=== PATIENT | female | born 1950 | race Caucasian/White ===

== ENCOUNTER 2017-01-23 13:12 | Outpatient (CLI) | payer MEDICARE ==
--- NOTE | 2017-01-23 16:14 | CT ---
CT CHEST WITHOUT CONTRAST: 01/23/17 Multiple axial tomograms were obtained through the chest without IV enhancement. HISTORY: Followup pulmonary nodule. COMPARISON: Comparison made to chest CT of 12/14/14. FINDINGS: The tiny nodule noted in the right lung base on the prior study is again seen and is unchanged nina nuing to measure in the 3 mm range. No other pulmonary mass or nodule identified. Thoracic scoliotic curvature again noted. Incidentally noted on today's exam is a fat density mass involving the right side of the heart. This measures approximately 3 cm width x 4 cm craniocaudal. This mass is unchanged in appearance from th e prior study. It does appear to narrow the lumen of the superior vena cava as it enters the right a trium. It appears to displace the superior vena cava and the right atrium. There is no evidence of s uperior vena cava syndrome seen as there are no collateral vessels seen above this region. A benign lipoma of the pericardium or right atrium would be suspected. Recommend cardiology consultation and echocardiogram for further delineation and characterization. T his is a stable finding from 12/14/14. IMPRESSION: 1. There is a fat density mass involving the right heart displacing the superior vena cava and right atrium. 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 Recommend cardiol ogy consultation and echocardiogram to further characterize. 2. The tiny nodule in the right lung base is stable. 3. No other interval change. Code T POS: MARILEE
== END 2017-01-23 13:13 | disposition home or self-care (01) ==
LOC: CT 13:12
PROVIDERS: ATTEND Internal Medicine
DX: J44.9 Chronic obstructive pulmonary disease, unspecified (principal); R91.1 Solitary pulmonary nodule; R91.8 Other nonspecific abnormal finding of lung field
CPT/HCPCS: 71250

== ENCOUNTER 2018-03-17 07:09 | Inpatient (IN) | payer MEDICARE ==
[2018-03-17] MEDS ORDERED: Piperacillin/Tazobactam 3.375 GM VIAL ONE (07:29)
[2018-03-17 07:36] LABS: Actual Bicarbonate (HCO3a) 28.4 mEq/L (22-28); Analyzer IN Cardio ER; Base Excess (BEa) 2.8 mEq/L (-2.0 to +3.0); CO2 Tension 49.6 mmHg (35.0-45.0); Calcium, Ionized 1.06 mmol/L (1.12-1.30); Carboxyhemoglobin (COHb) 1.1 gm% (0.0-3.0); Hemoglobin (Hb) 6.9 g/dL (12.0-16.0); O2 Tension (PaO2) 107.9 mmHg (> 80.0); pH, Arterial 7.38 (7.35-7.45)
[2018-03-17 07:38] LABS: Puncture Site RRA
[2018-03-17] MEDS ORDERED: Albuterol Sulfate 2.5 mg/0.5 ml Neb ONE (07:41)
[2018-03-17] MEDS ORDERED: Albuterol Sulfate 2.5 mg/3 ml Neb ONE (07:41)
[2018-03-17] MEDS ORDERED: cefTRIAXone\\ROCEPHIN 1 GM VIAL ONE (07:45)
[2018-03-17] MEDS ORDERED: niCARdipine 20MG In NaCl 20 MG/200 ML BAG ONE (07:51)
[2018-03-17 08:12] LABS: #Lymphocytes 0.6 thou/uL (1.20-3.40); #Monocytes 0.5 thou/uL (0.11-0.59); #Neutrophils 18.1 thou/uL (1.40-6.50); %Basophils 0.1 % (0.0-1.0); %Eosinophils 0.2 % (0.0-10.0); %Lymphocytes 3.3 % (21.0-51.0); %Monocytes 2.7 % (0.0-10.0); %Neutrophils 93.7 % (42.0-75.0); Hemoglobin 6.3 g/dL (12.0-16.0); Mean Corpuscular HGB CONC 27.2 g/dL (32.0-36.0); Mean Corpuscular Hemoglobin 16.2 pg (27.0-31.0); Mean Corpuscular Volume 59.6 fL (78.0-98.0); Mean Platelet Volume 5.1 fL (7.4-10.4); Platelet Count 378 thou/uL (130-400); RBC Distribution Width 30.9 % (11.5-14.5); Reflex for Review?? YES; White Blood Cell (WBC) Count 19.3 thou/uL (4.8-10.8)
[2018-03-17 08:23] LABS: Anion Gap 15 mmol/L (10-20); BUN (Urea Nitrogen) 11 mg/dL (9.8-20.1); Calc. Creatinine Clearance 0 mL/min (70-130); Calcium 8.6 mg/dL (7.8-10.44); Carbon Dioxide 26 mmol/L (23-31); Chloride 91 mmol/L (98-107); Estimated GFR-MDRD Greater than 90; Glucose 129 mg/dL (80-115); Potassium 3.5 mmol/L (3.5-5.1); Sodium 128 mmol/L (136-145)
[2018-03-17 08:46] LABS: Hypochromia MARKED = >30 cells (100X) (0-5/hpf); MDiff Complete? YES; Microcytosis MARKED = >30 cells (100X) (0-5/hpf); PLT Morphology Comment Appears Adequate; Polychromasia SLIGHT = 2-3 cells (100X) (0-2/hpf); Schistocytes SLIGHT = 2-5 cells (100X) (0-1/hpf); Spherocytes SLIGHT = 1-5 cells (100X) (None Seen); Target Cells SLIGHT = 2-5 cells (100X) (0-1/hpf)
[2018-03-17] MEDS ORDERED: Ondansetron ODT 4 MG TAB SL PRN (10:01)
[2018-03-17] MEDS ORDERED: VANCOMYCIN IVPB PRN (10:01)
[2018-03-17] MEDS ORDERED: Cepastat Lozenges 1 LOZ PO PRN (10:01)
[2018-03-17] MEDS ORDERED: Ondansetron PF 4 MG/2 ML Vial IVP PRN (10:01)
[2018-03-17] MEDS ORDERED: Diabetic Tussin 200 MG/10 ML UDCUP PO PRN (10:01)
[2018-03-17] MEDS ORDERED: Acetaminophen 325 MG TAB PO PRN (10:01)
[2018-03-17] MEDS ORDERED: Sodium Chloride 0.65% Nasal 44 ML BOT EA NARE PRN (10:01)
[2018-03-17] MEDS ORDERED: Bisacodyl 10 MG SUPP PR PRN (10:01)
[2018-03-17] MEDS ORDERED: Loratadine 10 MG TAB PO PRN (10:01)
[2018-03-17] MEDS ORDERED: Senokot S 8.6-50 MG TAB PO PRN (10:01)
[2018-03-17] MEDS ORDERED: Bisacodyl 5 MG TAB PO PRN (10:01)
[2018-03-17] MEDS ORDERED: hydrALAZINE 20 MG/ML VIAL SLOW IVP PRN (10:01)
[2018-03-17] MEDS ORDERED: Artificial Tears 18 DROP/0.9 ML EA EYE PRN (10:01)
[2018-03-17] MEDS ORDERED: Eucerin (Mineral Oil/Petrolatum,White) 30 gm Jar TOP PRN (10:01)
[2018-03-17] MEDS ORDERED: Sodium Chloride 0.9% 1,000 ML IV SCH (10:15)
--- NOTE | 2018-03-17 10:44 | HP ---
PRIMARY CARE PHYSICIAN: Dr. Muro. REASON FOR ADMISSION: Transferred from [facility] for respiratory distress, chronic obstructive pulmonary disease exacerbation, [id number] respiratory failure, and severe anemia with GI bleed. HISTORY OF PRESENT ILLNESS: A 68-year-old female, who is currently on BiPAP. She is in respiratory distress and she is not able to provide good comfortable history at this point, but she only reports that for last three days, she acutely got short of breath and her home medication was not helping. She did not have any flu-like symptoms. She did not have any fever or chills. She was having occasional dry cough without any sputum. She did not have any hemoptysis. The patient reports that she is using oxygen at home and she has nebulizer machine. She tried everything possible at home to keep away from hospital for last 2 to 3 days, but her condition kept deteriorating and she was not able to breathe last night and that is why she called Paramedics and Paramedics took her to [facility]. The patient was hypertensive at [facility]. Routine blood test showed hemoglobin of 4.5. The patient was given 3 units of blood so far and the patient reported that she noticed intermittent black stool and sometimes, she also noticed julia blood with stool, but she does not have any abdominal pain. She denies any hematemesis. She denies any epigastric abdominal pain. She denies any fever or chills. When she came to our emergency room after [facility] treatment, the patient was on BiPAP. She was settled down from her respiratory distress. At [facility], the patient was given a trial of nitroglycerin drip, but that did not improve and that is why Cardene drip was changed in our hospital. The patient was given Solu-Medrol and DuoNeb therapy at [facility]. REVIEW OF SYSTEMS: CONSTITUTIONAL: Negative for weight loss or gain, ability to conduct usual activities. SKIN: Negative for rash, itching. EYES: Negative for double vision, pain. ENT/MOUTH: Negative for nose bleeding, neck stiffness, pain, tenderness. CARDIOVASCULAR: Negative for palpitations, dyspnea on exertion, orthopnea. RESPIRATORY: Negative for shortness of breath, wheezing, cough, hemoptysis, fever or night sweats. GASTROINTESTINAL: Negative for poor appetite, abdominal pain, heartburn, nausea, vomiting, constipation, or diarrhea. GENITOURINARY: Negative for urgency, frequency, dysuria, nocturia. MUSCULOSKELETAL: Negative for pain, swelling. NEUROLOGIC/PSYCHIATRIC: Negative for anxiety, depression. ALLERGY/IMMUNOLOGIC: Negative for skin rash, bleeding tendency. All review of systems tried to review with the patient, but not reliable because of her respiratory distress. I spoke with the patient's on #[phone] and got history from him as well. EMERGENCY ROOM COURSE: At [facility], the patient was given DuoNeb therapy, Solu-Medrol 125 mg IV fluid and nitroglycerin drip was started. In our emergency room, the patient was started on Cardene drip. The patient is given empirically vancomycin and Zosyn. She is given IV fluid. PAST MEDICAL HISTORY: Chronic respiratory failure with hypoxia, on home oxygen therapy; chronic obstructive pulmonary disease; scoliosis; chronic low back pain; hypertension; diastolic heart failure; history of hospitalization for chronic obstructive pulmonary disease exacerbation. PAST SURGICAL HISTORY: Reviewed and negative. PAST PSYCHIATRIC HISTORY: Anxiety and depression. SOCIAL HISTORY: The patient has remote history of smoking about [id number]. She quit smoking in 2013. She drinks occasionally beer at home. She is and lives at home with her . ALLERGIES: SHELLFISH, CODEINE, AND IODINE. THE PATIENT DOES NOT TOLERATE LEVOFLOXACIN THAT GIVES HALLUCINATION. FAMILY HISTORY: Positive for colon cancer, but no family history of coronary artery disease or stroke. CURRENT HOME MEDICATIONS: The patient does not have any medication with her at this point, but she is on following medication as per our previous hospital record, 1. Dulera two puff inhalation b.i.d. 2. DuoNeb q.6 hourly. 3. Zoloft 50 mg daily. 4. Potassium chloride 10 mEq p.o. daily. 5. Remeron 15 mg p.o. daily. 6. Cozaar 100 p.o. daily. 7. Mucinex 600 mg twice daily. 8. Ferrous sulfate 325 mg p.o. daily. 9. Tramadol 50 mg q.6 hourly p.r.n. PHYSICAL EXAMINATION: VITAL SIGNS: Vital signs currently; blood pressure 204/110, pulse 109, respiratory rate 27, temperature 97.9, and saturation 100% on 4 L and subsequently 100% on BiPAP. Weight 38.1 kg. GENERAL: The patient is currently in respiratory distress. Currently, she is on BiPAP. She is hypertensive, tachycardic. The patient is frail appearing and cachectic. HEENT: Head; normocephalic and atraumatic. Eyes; pupils are round and reactive to light. Extraocular muscle intact. ENT; oropharynx within normal limits. Dry appearing mucous membranes. Pale mucous membranes. NECK: Supple. No JVD. No thyromegaly. No carotid bruit. LUNGS: Bilateral end-expiratory wheezing. The patient is not able to talk in full sentence. No rales. The patient does have accessory muscles of respiration in use. Pursed lip breathing noted. CARDIAC: S1 and S2, regular, tachycardia. No murmur. No gallop. No rub. ABDOMEN: Soft. Bowel sounds are present. No epigastric tenderness. No Alas sign. No suprapubic tenderness. BACK: Examination unremarkable. No CVA tenderness. EXTREMITIES: Upper extremities; passive movement of all joints are normal. Lower extremities; no edema. Good distal pulsation. SKIN: No skin rash. Pale skin. HEMATOLOGIC: No lymphadenopathy. PSYCHIATRIC: Normal affect. NEUROLOGIC: Nonfocal examination. SIGNIFICANT LABORATORY DATA: EKG showing sinus tachycardia, left atrial enlargement. Chest x-ray done at [facility], reviewed, consistent with mild vascular congestion, interstitial edema, trace bilateral pleural effusion, degenerative spine disease. Occult blood positive at [facility]. Lactic acid 1.2. BNP 224. Troponin less than 0.01. CBC; WBC 19.9, hemoglobin initially 4.4, and platelets 461. ABG, pH of 7.26, CO2 of 70, O2 of 171, bicarb 31. D-dimer 0.74. BMP; sodium 128, potassium 3.7, chloride 90, carbon dioxide 27, BUN 12, creatinine 0.72, glucose 193, calcium 8.7. LFT; AST 34, ALT 13, alkaline phosphatase 99, total protein 6.1, and albumin 4.0. Current lab tests in our emergency room showing WBC 19.3, hemoglobin 6.3, lactic acid 2.7, and sodium 128. Cardiac enzyme negative. The patient has improvement in ABG compared to [facility]. ASSESSMENT AND PLAN: 1. Lmnap-os-zdyxbun respiratory failure with hypoxia and hypercapnia, likely due to underlying chronic obstructive pulmonary disease exacerbation, improving with BiPAP. The patient will be kept in ICU. Pulmonary group will be consulted. We will continue with BiPAP as tolerated. We will treat underlying chronic obstructive pulmonary disease exacerbation. 2. Jjoef-dv-hlwkhuf chronic obstructive pulmonary disease exacerbation, seems like patient has terminal chronic obstructive pulmonary disease. She has acute exacerbation. We will treat her with empiric antibiotic therapy with cefepime 1 g q.12 hourly, DuoNeb q.4 hourly, Solu-Medrol 40 mg IV q.6 hourly, Mucinex 600 mg twice daily. Pulmonary group will be consulted. We will monitor closely and will continue with BiPAP as tolerated. 3. Acute symptomatic severe anemia. The patient's hemoglobin was 4.5. She was given 3 units of blood so far. Currently, hemoglobin is 6.3. The patient will get another blood transfusion. Most likely GI bleed from the upper GI tract, given the patient has melenic stool, we will consult Gastroenterology. We will treat her with Protonix 40 mg IV b.i.d. We will monitor hemoglobin and hematocrit and consider transfusional support. 4. Systemic inflammatory response syndrome criteria. The patient has leukocytosis, tachycardia, likely related with stress response from chronic obstructive pulmonary disease exacerbation. Underlying infiltration or infection cannot be entirely excluded. We will check urinalysis and urine culture as well as blood culture will be sent and the patient is already kept on empiric antibiotic therapy with cefepime 1 g q.12 hourly, Florastor 250 mg p.o. b.i.d. We will also consider adding vancomycin as per pharmacy adjusted dose. 5. Hyponatremia, likely related with underlying chronic lung disease. We will monitor BMP while in the hospital. We will check urine osmolality, serum osmolality, random cortisol, and TSH. 6. Hypertensive emergency, likely due to stress response plus medications like steroid. The patient is kept on Cardene drip, which we will titrate in ICU. We will start losartan 50 mg p.o. daily. We will use in p.r.n. basis of other blood pressure medication and wean off Cardene drip as tolerated. 7. Lactic acidosis, likely due to sepsis/systemic inflammatory response syndrome criteria. We will repeat lactic acid level tomorrow. 8. Anxiety and depression. Continue Remeron 15 mg p.o. daily and Zoloft 50 mg p.o. daily. 9. Deep venous thrombosis prophylaxis. No Lovenox or any blood product because of severe anemia and GI bleed. 10. Gastrointestinal prophylaxis. The patient is already on Protonix therapy. CODE STATUS: The patient is a full code. She expressed her wish to be a full code and her is medical power of estate planning attorney. The patient's condition at the time of dictation is critical. Prognosis is guarded. Total time spent providing critical care to this patient, 35 minutes in the emergency room. Job ID: [id number]
[2018-03-17 11:17] LABS: Troponin I Less than 0.010 ng/mL (< 0.028)
[2018-03-17] MEDS: Cefepime 1 GM in Sodium Chloride 0.9% 100 ML IVPB SCH ×2 (11:20→23:34)
[2018-03-17 11:31] VITALS: BMI 17.2
--- NOTE | 2018-03-17 12:20 | CON ---
DATE OF CONSULTATION: 03/17/2018 This is 45 minutes of critical care time. CONSULTING PHYSICIAN: Hospitalist group. REASON FOR CONSULTATION: Acute respiratory failure and lower gastrointestinal bleeding. HISTORY OF THE PRESENT ILLNESS: Caterina Sousa is a 68-year-old female, who presented to an [facility] emergency room severely short of breath. She was found to have a hemoglobin of around 4. I believe she was given about 4 units of blood and transferred here for further evaluation. Here, she was found to be profoundly short of breath and she was started on BiPAP therapy. The patient tells me that Dr. Adan is her c python developer. She routinely wears 3 L of oxygen on a daily basis. She quit smoking about 6 years ago. She has self-dosed her prednisone at about 20 mg a day, although I think she is supposed to be taking about 5 mg a day. Additionally, she is taking DuoNebs, budesonide, and Perforomist. PAST MEDICAL HISTORY: 1. Severe COPD, requiring home oxygen and chronic steroids. 2. Chronic back pain. 3. Hypertension. PAST SURGICAL HISTORY: Denies. ALLERGIES: SHELLFISH, CODEINE, AND LEVAQUIN. MEDICATIONS: Prior to admission; 1. Prednisone 20 mg daily. 2. Losartan 100 mg daily. 3. Budesonide 0.5 mg nebulized twice daily. 4. Perforomist nebulized twice daily. 5. DuoNeb nebulized as needed. 6. Mirtazapine unknown dose daily. 7. Sertraline unknown dose daily. 8. Tramadol 1 tablet every 6 hours as needed for pain. SOCIAL HISTORY: She drinks about 2 beers a day. Quit smoking 6 years ago after 40 pack-year history of smoking. FAMILY MEDICAL HISTORY: Unremarkable. REVIEW OF SYSTEMS: A 12-point review of systems is otherwise negative. PHYSICAL EXAMINATION: VITAL SIGNS: Temperature 97.9, pulse 106, blood pressure 157/74, and O2 saturation 100%. GENERAL: The patient appears profoundly dyspneic at rest. She is disheveled. HEENT: Pupils react. Sclerae icteric. Oropharynx clear. NECK: No adenopathy. No JVD. LUNGS: Clear breath sounds, but tachypneic. CARDIOVASCULAR: S1 and S2. Slightly tachycardic. ABDOMEN: Soft and nontender to deep palpation. EXTREMITIES: No clubbing, cyanosis, or edema. NEUROLOGIC: Grossly intact. SKIN: Shows no obvious lesions. LABORATORY DATA: White blood cell count 19.3, hemoglobin 6.3, hematocrit 23.2, and platelet count 378. pH of 7.38, pCO2 of 49, and pO2 of 107, that was on 3 L nasal cannula. Sodium 128, potassium 3.5, chloride 91, CO2 of 26, BUN 11, creatinine 0.6, and glucose 129. ASSESSMENT: 1. Lower gastrointestinal bleeding with bright red blood per rectum. 2. Chronic obstructive pulmonary disease with exacerbation. 3. Anemia due to blood loss. 4. Severe hypertension. RECOMMENDATION: 1. The patient needs to have her H and H followed closely. This needs to be done more frequently than just on a daily basis. 2. Gastroenterology consultation for possible colonoscopy and upper endoscopy. 3. Treatment of chronic obstructive pulmonary disease with BiPAP as needed, antibiotics, nebulization treatments, and IV steroids. 4. Transfusion as necessary. Job ID: [id number]
[2018-03-17 12:37] LABS: Lactic Acid 4.9 mmol/L (0.5-2.2)
[2018-03-17 14:52] LABS: Troponin I Less than 0.010 ng/mL (< 0.028)
[2018-03-17 16:50] LABS: Hemoglobin 8.1 g/dL (12.0-16.0)
[2018-03-17] MEDS: Losartan 25 MG TAB PO SCH (17:19)
[2018-03-17] MEDS: traMADol HCl 50 MG TAB PO SCH ×2 (17:39→21:25)
[2018-03-17] MEDS: Budesonide 0.5 MG/2 ML NEB INH SCH (18:21)
[2018-03-17] MEDS: Arformoterol 15 MCG/2 ML NEB NEB SCH (18:21)
[2018-03-17] MEDS: Mirtazapine 15 MG TAB PO SCH (21:25)
[2018-03-17] MEDS: Pantoprazole 40 MG VIAL IVP SCH (21:25)
--- NOTE | 2018-03-17 22:18 | CON ---
DATE OF CONSULTATION: 03/17/2018 GASTROENTEROLOGY CONSULTATION CHIEF COMPLAINT: Shortness of breath. HISTORY OF PRESENT ILLNESS: Ms. Sousa is a 68-year-old woman, who presented to the emergency room in [place] yesterday with shortness of breath. She was found to have severe anemia with a hemoglobin of 4.4 and she was transfused 3 or 4 units of blood. She was transferred to [facility] and placed in the intensive care unit. She reported to the admitting physician that she had some black stools on and off occasionally. Currently, she denies any recent black stools. She states that she has had occasional red blood on the toilet paper, that she attributes to hemorrhoids. She denies more significant overt bleeding. She has no abdominal pain, no nausea or vomiting, no diarrhea or constipation. She has severe COPD and is on home oxygen. She has been taking prednisone at home. She does take aspirin, Aleve or Advil, maybe around once per week. PAST MEDICAL HISTORY: COPD on home oxygen, chronic back pain, scoliosis, hypertension, and diastolic heart failure. PAST SURGICAL HISTORY: She states that she had a colonoscopy, maybe 20 years ago. FAMILY HISTORY: Her father had colon cancer at age 70. HABITS: She quit smoking several years ago. No drugs or alcohol. ALLERGIES: SHELLFISH, CODEINE, IODINE, AND LEVOFLOXACIN. MEDICATIONS: 1. Dulera inhalers. 2. DuoNebs every 6 hours. 3. Zoloft. 4. Potassium chloride. 5. Remeron. 6. Cozaar. 7. Mucinex. 8. Iron. 9. Tramadol. She is taking prednisone, self-dosing as well. REVIEW OF SYSTEMS: Negative x10 systems reviewed except as stated in the history of present illness. LABORATORY DATA: Sodium 128, potassium 3.5, chloride 91, CO2 of 26, BUN 11, and creatinine 0.63. Her white blood cell count 19.3, hemoglobin 6.3 after 3 or 4 units of blood, platelets 378, and MCV 59.6. PHYSICAL EXAMINATION: VITAL SIGNS: Blood pressure 150/76, pulse 114, and temperature 98.5. GENERAL: She is in no acute distress. She is alert and oriented x3. HEENT: Eyes have no scleral icterus. Oropharynx is clear without lesions. No cervical or supraclavicular lymphadenopathy. LUNGS: Have crackles in the right base and decreased breath sounds overall. HEART: Regular rate and rhythm. No murmurs. ABDOMEN: Soft, nontender, and nondistended. Bowel sounds are present. She has formed stool sample, which is dark brown to greenish with no red blood mixed in. EXTREMITIES: No lower extremity edema. IMPRESSION: 1. Severe microcytic anemia, concerning for chronic gastrointestinal blood loss. She may have an acute blood loss component as well. 2. Family history of colon cancer in father. 3. Severe chronic obstructive pulmonary disease, on home oxygen. RECOMMENDATIONS: 1. Check iron studies. 2. Upper and lower endoscopy have been offered. The patient did not wish to proceed with these procedures at this time. She would like to talk to her and Dr. Adan further as well. 3. We will give proton-pump inhibitor and monitor her hemoglobin and transfuse as necessary. If she ultimately decides to follow through with endoscopy, then we can perform a bowel prep and schedule those procedures. She is certainly at increased risk given her advanced chronic obstructive pulmonary disease. Job ID: [id number]
[2018-03-18] MEDS ORDERED: niCARdipine HCl 25 MG in Sodium Chloride 0.9% 250 ML 240 ML IVPB SCH (04:15)
[2018-03-18 04:39] LABS: Lactic Acid 0.8 mmol/L (0.5-2.2)
[2018-03-18 04:40] LABS: #Lymphocytes 0.5 thou/uL (1.20-3.40); #Monocytes 0.4 thou/uL (0.11-0.59); #Neutrophils 12.1 thou/uL (1.40-6.50); %Eosinophils 0.2 % (0.0-10.0); %Lymphocytes 3.9 % (21.0-51.0); %Monocytes 3.2 % (0.0-10.0); %Neutrophils 92.7 % (42.0-75.0); Hemoglobin 8.1 g/dL (12.0-16.0); Mean Corpuscular HGB CONC 29.8 g/dL (32.0-36.0); Mean Corpuscular Hemoglobin 19.1 pg (27.0-31.0); Mean Corpuscular Volume 64.2 fL (78.0-98.0); Mean Platelet Volume 5.4 fL (7.4-10.4); Platelet Count 329 thou/uL (130-400); RBC Distribution Width 31.1 % (11.5-14.5); Red Blood Cell (RBC) Count 4.22 mill/uL (4.20-5.40)
[2018-03-18 04:45] LABS: ALT (SGPT) 12 U/L (8-55); AST (SGOT) 24 U/L (5-34); Albumin 3.7 g/dL (3.4-4.8); Alkaline Phosphatase 85 U/L (40-150); Anion Gap 12 mmol/L (10-20); BUN (Urea Nitrogen) 6 mg/dL (9.8-20.1); Bilirubin, Total 0.5 mg/dL (0.2-1.2); Calc. Creatinine Clearance 59 mL/min (70-130); Calcium 8.5 mg/dL (7.8-10.44); Carbon Dioxide 28 mmol/L (23-31); Chloride 100 mmol/L (98-107); Estimated GFR-MDRD Greater than 90; Globulin 2.3 g/dL (2.4-3.5); Glucose 113 mg/dL (80-115); Iron 10 ug/dL (50-170); Iron Binding Capacity, Total 458 mcg/dL (265-497); Potassium 3.1 mmol/L (3.5-5.1); Sodium 137 mmol/L (136-145)
[2018-03-18] MEDS: traMADol HCl 50 MG TAB PO SCH ×3 (05:46→20:46)
[2018-03-18] MEDS: Budesonide 0.5 MG/2 ML NEB INH SCH ×2 (06:55→20:09)
[2018-03-18] MEDS: Arformoterol 15 MCG/2 ML NEB NEB SCH ×2 (06:55→20:12)
[2018-03-18] MEDS: Saccharomyces boulardii 250 MG CAP PO SCH (07:43)
[2018-03-18] MEDS: Pantoprazole 40 MG VIAL IVP SCH ×2 (07:44→20:46)
[2018-03-18] MEDS: Losartan 25 MG TAB PO SCH (07:44)
[2018-03-18] MEDS ORDERED: Vancomycin HCl 1 GM in Premix Bag 1 BAG IVPB SCH (08:00)
--- NOTE | 2018-03-18 10:02 | PDOC.PN ---
- Subjective Encounter Start Date: 03/18/18 Encounter Start Time: 09:20 -: old records requested/rev pt is doing much better, she is off cardene drip, she is off bipap, she decided not to go for EGD and colonoscopy Patient seen and examined. No new complaints. No overnight events - Objective Resuscitation Status - Order Detail: 03/17/18 09:25 Resuscitation Status Routine Resuscitation Status: FULL: Full Resuscitation MAR Reviewed: Yes Vital Signs & Weight: Vital Signs (12 hours) Temp Pulse Resp Pulse Ox 03/18/18 08:00 100 03/18/18 06:55 107 H 24 H 100 03/18/18 04:00 98.1 F 03/18/18 02:17 111 H 17 100 03/18/18 00:00 98.4 F 03/17/18 22:11 105 H 25 H 100 Weight Weight 91 lb 7.869 oz Most Recent Monitor Data Heart Rate from ECG 96 NIBP 166/83 NIBP BP-Mean 110 Respiration from ECG 25 SpO2 100 I&O: 03/17/18 03/18/18 03/19/18 06:59 06:59 06:59 Intake Total 3013 Output Total 4530 Balance -1517 Result Diagrams: 03/18/18 04:09 03/18/18 04:09 EKG Reviewed by me: Yes (nsr) Phys Exam - Physical Examination Constitutional: NAD HEENT: PERRLA, moist MMs, sclera anicteric Neck: no JVD, supple Respiratory: no wheezing, no rales, no rhonchi Cardiovascular: RRR, no significant murmur, no rub Gastrointestinal: soft, non-tender, no distention, positive bowel sounds Musculoskeletal: no edema, pulses present Neurological: non-focal, normal sensation Lymphatic: no nodes Psychiatric: normal affect, A&O x 3 Skin: no rash, normal turgor Dx/Plan (1) Acute on chronic respiratory failure with hypoxemia Code(s): J96.21 - ACUTE AND CHRONIC RESPIRATORY FAILURE WITH HYPOXIA Status: Acute (2) COPD exacerbation Code(s): J44.1 - CHRONIC OBSTRUCTIVE PULMONARY DISEASE W (ACUTE) EXACERBATION Status: Acute (3) Hypertensive urgency Code(s): I16.0 - HYPERTENSIVE URGENCY Status: Acute (4) GI bleed Code(s): K92.2 - GASTROINTESTINAL HEMORRHAGE, UNSPECIFIED Status: Acute (5) Hypokalemia Code(s): E87.6 - HYPOKALEMIA Status: Acute (6) Lactic acidosis Code(s): E87.2 - ACIDOSIS Status: Acute (7) Symptomatic anemia Code(s): D64.9 - ANEMIA, UNSPECIFIED Status: Acute (8) Anxiety and depression Code(s): F41.9 - ANXIETY DISORDER, UNSPECIFIED; F32.9 - MAJOR DEPRESSIVE DISORDER, SINGLE EPISODE, UNSPECIFIED Status: Chronic (9) Diastolic dysfunction Code(s): I51.9 - HEART DISEASE, UNSPECIFIED Status: Chronic (10) HTN (hypertension), benign Code(s): I10 - ESSENTIAL (PRIMARY) HYPERTENSION Status: Chronic (11) Protein-calorie malnutrition, moderate Code(s): E44.0 - MODERATE PROTEIN-CALORIE MALNUTRITION Status: Chronic (12) Scoliosis Status: Chronic Qualifiers: - Plan cont current plan of care, continue antibiotics, respiratory therapy * add amlodipine 10 mg po daily * DC IVF * overall doing better * medication reviewed as below * symptomatic treatment * start diet as pt decided not to go for any procedure at this point * will continue to adjust her medication * pulmonary and GI recommendation appreciated. Review of Systems - Review of Systems ENT: negative: Ear Pain, Ear Discharge, Nose Pain, Nose Discharge, Nose Congestion, Mouth Pain, Mouth Swelling, Throat Pain, Throat Swelling, Other Respiratory: negative: Cough, Dry, Shortness of Breath, Hemoptysis, SOB with Excertion, Pleuritic Pain, Sputum, Wheezing Cardiovascular: negative: chest pain, palpitations, orthopnea, paroxysmal nocturnal dyspnea, edema, light headedness, other Gastrointestinal: negative: Nausea, Vomiting, Abdominal Pain, Diarrhea, Constipation, Melena, Hematochezia, Other Genitourinary: negative: Dysuria, Frequency, Incontinence, Hematuria, Retention , Other Musculoskeletal: negative: Neck Pain, Shoulder Pain, Arm Pain, Back Pain, Hand Pain, Leg Pain, Foot Pain, Other Skin: negative: Rash, Lesions, Rene, Bruising, Other - Medications/Allergies Allergies/Adverse Reactions: Allergies Allergy/AdvReac Type Severity Reaction Status Date / Time codeine Allergy Unknown Verified 12/25/14 17:37 shellfish derived Allergy Unknown Verified 12/25/14 17:37 iodine Allergy Verified 12/27/14 10:25 Medications: Current Medications Acetaminophen (Tylenol) 650 mg PO Q4H PRN PRN Reason: Headache/Fever/Mild Pain (1-3) Albuterol/Ipratropium (Duoneb) 3 ml NEB [id number] [facility] Last Admin: 03/18/18 06:55 Dose: 3 ml Arformoterol Tartrate (Brovana) 15 mcg NEB BID-RT [facility] Last Admin: 03/18/18 06:55 Dose: 15 mcg Artificial Tears (Tears Naturale) 2 drop EA EYE PRN PRN PRN Reason: Dry Eyes Bisacodyl (Dulcolax) 10 mg PO DAILYPRN PRN PRN Reason: Constipation Bisacodyl (Dulcolax) 10 mg AR DAILYPRN PRN PRN Reason: Constipation Budesonide (Pulmicort Neb Solution) 0.5 mg INH BID-RT [facility] Last Admin: 03/18/18 06:55 Dose: 0.5 mg Guaifenesin (Robitussin Sf) 200 mg PO Q4H PRN PRN Reason: Cough Hydralazine HCl (Apresoline) 10 mg SLOW IVP Q4H PRN PRN Reason: SBP > 180 and HR < 70 Cefepime HCl 1 gm/ Sodium (Chloride) 100 mls @ 200 mls/hr IVPB 1100,2300 [facility] Last Admin: 03/17/18 23:34 Dose: 100 mls Sodium Chloride (Normal Saline 0.9%) 1,000 mls @ 70 mls/hr IV .[id number] [facility] Last Admin: 03/17/18 19:37 Dose: 1,000 mls Vancomycin HCl 1 gm/ Device 200 mls @ 200 mls/hr IVPB 0800 [facility] Last Admin: 03/18/18 07:43 Dose: 200 mls Nicardipine HCl 25 mg/ Sodium (Chloride) 250 mls @ 0 mls/hr IVPB INF [facility]; Protocol Loratadine (Claritin) 10 mg PO DAILYPRN PRN PRN Reason: Sinus Symptoms Losartan Potassium (Cozaar) 100 mg PO DAILY [facility] Last Admin: 03/18/18 07:44 Dose: 100 mg Methylprednisolone Sodium Succinate (Solu-Medrol) 40 mg IVP Q6HR [facility] Last Admin: 03/18/18 05:46 Dose: 40 mg Mineral Oil/White Petrolatum (Eucerin Cream) 0 gm TOP BIDPRN PRN PRN Reason: Dry Skin Mirtazapine (Remeron) 15 mg PO HS [facility] Last Admin: 03/17/18 21:25 Dose: 15 mg Miscellaneous Medication (Pharmacy To Dose) 1 each IVPB DAILYPRN PRN PRN Reason: LABS Ondansetron HCl (Zofran Odt) 4 mg SL Q6H PRN PRN Reason: Nausea/Vomiting Ondansetron HCl (Zofran) 4 mg IVP Q6H PRN PRN Reason: Nausea/Vomiting Pantoprazole Sodium (Protonix) 40 mg IVP Q12HR [facility] Last Admin: 03/18/18 07:44 Dose: 40 mg Saccharomyces Boulardii (Florastor) 250 mg PO DAILY [facility] Last Admin: 03/18/18 07:43 Dose: 250 mg Senna/Docusate Sodium (Senokot S) 2 tab PO BID PRN PRN Reason: Constipation Sertraline HCl (Zoloft) 50 mg PO DAILY [facility] Last Admin: 03/18/18 07:44 Dose: 50 mg Sodium Chloride ([place] Nasal [place] 0.65%) 0 ml EA NARE QIDPRN PRN PRN Reason: Nasal Congestion Throat Lozenges (Cepastat Lozenges) 1 cruz PO Q2H PRN PRN Reason: Sore Throat Tramadol HCl (Ultram) 50 mg PO Q8HR [facility] Last Admin: 03/18/18 05:46 Dose: 50 mg
[2018-03-18] MEDS ORDERED: Amlodipine 10 MG TAB PO SCH (10:15)
[2018-03-18] MEDS ORDERED: Furosemide 20 MG/2 ML VIAL SLOW IVP SCH (10:45)
[2018-03-18] MEDS: Potassium Chloride 20 MEQ TAB PO SCH ×3 (10:50→18:05)
--- NOTE | 2018-03-18 11:30 | PRG ---
DATE OF SERVICE: 03/18/2018 SERVICE: Pulmonary Medicine. INTERVAL HISTORY: The patient is doing fine from respiratory standpoint. Breathing comfortably. Denies any current chest pain, fevers, chills, nausea, vomiting, or diarrhea. She responded appropriately to her hemoglobin overnight. There has been no interval change to her condition. She is actually declining evaluation with EGD and colonoscopy at this point. She would like to see whether or not she has recurrence of her anemia process. Multiple laboratories are currently pending. She has been on and off the Cardene drip overnight. PHYSICAL EXAMINATION: VITAL SIGNS: Afebrile. Pulse 107, blood pressure 166/83, respirations 24, saturation 100% on 3 L nasal cannula. GENERAL: The patient is awake, alert, in no apparent distress. LUNGS: Excellent air entry. Minimal dependent crackles are present. HEART: Normal rate, regular. ABDOMEN: Soft, nontender, and nondistended. Bowel sounds are positive. MUSCULOSKELETAL: No cyanosis or clubbing. There is no pitting in the bilateral lower extremities. NEUROLOGIC: Grossly nonfocal. LABORATORY DATA: WBC 13.0, hemoglobin 8.1, platelets 329,000. Hemoglobin remained stable over the last 24 hours. Basic metabolic profile and liver function studies are unremarkable. Cardiac enzymes are negative x3. Lactate has resolved from 4.9 down to 0.8. All other blood studies occurred after she got multiple units of blood. ASSESSMENT: 1. Acute blood loss anemia. 2. Lower gastrointestinal bleed. 3. Chronic obstructive pulmonary disease without exacerbation. 4. Hypertension. DISCUSSION AND PLAN: We will replace the potassium. We will rapidly deescalate her antibiotics and nebulized medication. We will reintroduce her blood pressure medications. She does have some crackles on chest x-ray. As such, we will stop her IV fluids and provide her with 1 single dose of Lasix. If we can get her off the Cardene drip, she will be stable for transition to the medical unit this afternoon. I have suggested to her that she probably should undergo diagnostic evaluation while she is in-house, so that we understand the source of her blood loss. That being said, she has declined this at this moment. Job ID: [id number]
--- NOTE | 2018-03-18 12:28 | EKG ---
Test Reason : Blood Pressure : / mmHG Vent. Rate : 109 BPM Atrial Rate : 109 BPM P-R Int : 166 ms QRS Dur : 078 ms QT Int : 370 ms P-R-T Axes : 071 022 063 degrees QTc Int : 498 ms Sinus tachycardia Possible Left atrial enlargement Borderline ECG Confirmed by GIOVANNI LUCIA MD ([id number]), managing editor KEVIN SIU ([id number] on 03/18/2018 12:28:37 PM Referred By: Confirmed By:GIOVANNI LUCIA MD
[2018-03-18] MEDS ORDERED: Labetalol HCl 100 MG/20 ML VIAL IVPB PRN (15:19)
[2018-03-18] MEDS: Mirtazapine 15 MG TAB PO SCH (20:46)
[2018-03-19] MEDS: traMADol HCl 50 MG TAB PO SCH ×3 (06:22→20:30)
[2018-03-19] MEDS: Budesonide 0.5 MG/2 ML NEB INH SCH ×2 (06:31→19:48)
[2018-03-19] MEDS: Arformoterol 15 MCG/2 ML NEB NEB SCH ×2 (06:31→19:50)
[2018-03-19] MEDS: Pantoprazole 40 MG VIAL IVP SCH ×2 (09:11→20:29)
[2018-03-19] MEDS: Saccharomyces boulardii 250 MG CAP PO SCH (09:11)
[2018-03-19] MEDS: Amlodipine 10 MG TAB PO SCH (09:12)
[2018-03-19 09:15] LABS: Anion Gap 12 mmol/L (10-20); BUN (Urea Nitrogen) 7 mg/dL (9.8-20.1); Calc. Creatinine Clearance 57 mL/min (70-130); Calcium 8.8 mg/dL (7.8-10.44); Carbon Dioxide 28 mmol/L (23-31); Chloride 101 mmol/L (98-107); Estimated GFR-MDRD Greater than 90; Glucose 78 mg/dL (80-115); Magnesium 1.7 mg/dL (1.6-2.6); Potassium 3.6 mmol/L (3.5-5.1); Sodium 137 mmol/L (136-145)
[2018-03-19] MEDS: Losartan 25 MG TAB PO SCH (09:16)
[2018-03-19] MEDS ORDERED: predniSONE 20 MG TAB PO SCH (10:30)
--- NOTE | 2018-03-19 11:45 | PDOC.PN ---
- Subjective Encounter Start Date: 03/19/18 Encounter Start Time: 09:30 Patient seen and examined. No new complaints. No overnight events - Objective Resuscitation Status - Order Detail: 03/17/18 09:25 Resuscitation Status Routine Resuscitation Status: FULL: Full Resuscitation MAR Reviewed: Yes Vital Signs & Weight: Vital Signs (12 hours) Temp Pulse Resp BP BP Pulse Ox 03/19/18 09:12 100 159/81 H 03/19/18 08:00 100 03/19/18 07:45 97.7 F 100 20 159/81 H 99 03/19/18 06:32 99 03/19/18 06:30 108 H 20 98 03/19/18 05:00 98.2 F 108 H 20 170/84 H 99 03/19/18 01:31 118 H 20 96 Weight Admit Weight 91 lb Weight 91 lb 7.869 oz Most Recent Monitor Data Heart Rate from ECG 115 NIBP 160/98 NIBP BP-Mean 118 Respiration from ECG 30 SpO2 95 I&O: 03/18/18 03/19/18 03/20/18 06:59 06:59 06:59 Intake Total 3013 589 Output Total 4530 1450 Balance -7037 -501 Result Diagrams: 03/18/18 04:09 03/19/18 08:34 Phys Exam - Physical Examination Constitutional: NAD HEENT: PERRLA, moist MMs, sclera anicteric Neck: no JVD, supple Respiratory: no wheezing, no rales, no rhonchi Cardiovascular: RRR, no significant murmur, no rub Gastrointestinal: soft, non-tender, no distention, positive bowel sounds Musculoskeletal: no edema, pulses present Neurological: non-focal, normal sensation Lymphatic: no nodes Psychiatric: normal affect, A&O x 3 Skin: no rash, normal turgor Dx/Plan (1) Acute on chronic respiratory failure with hypoxemia Code(s): J96.21 - ACUTE AND CHRONIC RESPIRATORY FAILURE WITH HYPOXIA Status: Acute (2) COPD exacerbation Code(s): J44.1 - CHRONIC OBSTRUCTIVE PULMONARY DISEASE W (ACUTE) EXACERBATION Status: Acute (3) Hypertensive urgency Code(s): I16.0 - HYPERTENSIVE URGENCY Status: Acute (4) GI bleed Code(s): K92.2 - GASTROINTESTINAL HEMORRHAGE, UNSPECIFIED Status: Acute (5) Hypokalemia Code(s): E87.6 - HYPOKALEMIA Status: Acute (6) Lactic acidosis Code(s): E87.2 - ACIDOSIS Status: Acute (7) Symptomatic anemia Code(s): D64.9 - ANEMIA, UNSPECIFIED Status: Acute (8) Anxiety and depression Code(s): F41.9 - ANXIETY DISORDER, UNSPECIFIED; F32.9 - MAJOR DEPRESSIVE DISORDER, SINGLE EPISODE, UNSPECIFIED Status: Chronic (9) Diastolic dysfunction Code(s): I51.9 - HEART DISEASE, UNSPECIFIED Status: Chronic (10) HTN (hypertension), benign Code(s): I10 - ESSENTIAL (PRIMARY) HYPERTENSION Status: Chronic (11) Protein-calorie malnutrition, moderate Code(s): E44.0 - MODERATE PROTEIN-CALORIE MALNUTRITION Status: Chronic (12) Scoliosis Status: Chronic Qualifiers: - Plan cont current plan of care, continue antibiotics, respiratory therapy * continue oral prednisone * continue respiratory therapy * continue iv protonix * repeat labs tomorrow * expecting discharge tomorrow * medication reviewed as below * symptomatic treatment * ambulate today. Review of Systems - Review of Systems ENT: negative: Ear Pain, Ear Discharge, Nose Pain, Nose Discharge, Nose Congestion, Mouth Pain, Mouth Swelling, Throat Pain, Throat Swelling, Other Respiratory: negative: Cough, Dry, Shortness of Breath, Hemoptysis, SOB with Excertion, Pleuritic Pain, Sputum, Wheezing Cardiovascular: negative: chest pain, palpitations, orthopnea, paroxysmal nocturnal dyspnea, edema, light headedness, other Gastrointestinal: negative: Nausea, Vomiting, Abdominal Pain, Diarrhea, Constipation, Melena, Hematochezia, Other Genitourinary: negative: Dysuria, Frequency, Incontinence, Hematuria, Retention , Other Musculoskeletal: negative: Neck Pain, Shoulder Pain, Arm Pain, Back Pain, Hand Pain, Leg Pain, Foot Pain, Other - Medications/Allergies Allergies/Adverse Reactions: Allergies Allergy/AdvReac Type Severity Reaction Status Date / Time codeine Allergy Unknown Verified 12/25/14 17:37 shellfish derived Allergy Unknown Verified 12/25/14 17:37 iodine Allergy Verified 12/27/14 10:25 Medications: Current Medications Acetaminophen (Tylenol) 650 mg PO Q4H PRN PRN Reason: Headache/Fever/Mild Pain (1-3) Albuterol/Ipratropium (Duoneb) 3 ml NEB [id number] [facility] Last Admin: 03/19/18 06:30 Dose: 3 ml Amlodipine Besylate (Norvasc) 10 mg PO DAILY [facility] Last Admin: 03/19/18 09:12 Dose: 10 mg Arformoterol Tartrate (Brovana) 15 mcg NEB BID-RT [facility] Last Admin: 03/19/18 06:31 Dose: 15 mcg Artificial Tears (Tears Naturale) 2 drop EA EYE PRN PRN PRN Reason: Dry Eyes Bisacodyl (Dulcolax) 10 mg PO DAILYPRN PRN PRN Reason: Constipation Bisacodyl (Dulcolax) 10 mg CO DAILYPRN PRN PRN Reason: Constipation Budesonide (Pulmicort Neb Solution) 0.5 mg INH BID-RT [facility] Last Admin: 03/19/18 06:31 Dose: 0.5 mg Guaifenesin (Robitussin Sf) 200 mg PO Q4H PRN PRN Reason: Cough Hydralazine HCl (Apresoline) 10 mg SLOW IVP Q4H PRN PRN Reason: SBP > 180 and HR < 70 Last Admin: 03/18/18 12:08 Dose: 10 mg Labetalol HCl (Normodyne) 20 mg IVPB Q15MIN PRN PRN Reason: SBP >=160 Loratadine (Claritin) 10 mg PO DAILYPRN PRN PRN Reason: Sinus Symptoms Losartan Potassium (Cozaar) 100 mg PO DAILY [facility] Last Admin: 03/19/18 09:16 Dose: 100 mg Mineral Oil/White Petrolatum (Eucerin Cream) 0 gm TOP BIDPRN PRN PRN Reason: Dry Skin Mirtazapine (Remeron) 15 mg PO HS [facility] Last Admin: 03/18/18 20:46 Dose: 15 mg Ondansetron HCl (Zofran Odt) 4 mg SL Q6H PRN PRN Reason: Nausea/Vomiting Ondansetron HCl (Zofran) 4 mg IVP Q6H PRN PRN Reason: Nausea/Vomiting Pantoprazole Sodium (Protonix) 40 mg IVP Q12HR [facility] Last Admin: 03/19/18 09:11 Dose: 40 mg Prednisone (Prednisone) 10 mg PO Q2D [facility] Last Admin: 03/19/18 11:41 Dose: 10 mg Saccharomyces Boulardii (Florastor) 250 mg PO DAILY [facility] Last Admin: 03/19/18 09:11 Dose: 250 mg Senna/Docusate Sodium (Senokot S) 2 tab PO BID PRN PRN Reason: Constipation Sertraline HCl (Zoloft) 50 mg PO DAILY [facility] Last Admin: 03/19/18 09:11 Dose: 50 mg Sodium Chloride ([place] Nasal [place] 0.65%) 0 ml EA NARE QIDPRN PRN PRN Reason: Nasal Congestion Throat Lozenges (Cepastat Lozenges) 1 cruz PO Q2H PRN PRN Reason: Sore Throat Tramadol HCl (Ultram) 50 mg PO Q8HR [facility] Last Admin: 03/19/18 06:22 Dose: 50 mg
[2018-03-19] MEDS ORDERED: Magnesium 2 GM/50 ML 2 GM in Premix Bag 1 BAG IVPB SCH (16:00)
[2018-03-19] MEDS ORDERED: Potassium Chloride 20 MEQ TAB PO SCH (16:00)
--- NOTE | 2018-03-19 16:31 | PRG ---
DATE OF SERVICE: 03/19/2018 SERVICE: Pulmonary Medicine. INTERVAL HISTORY: The patient declines any evaluation for her GI bleed. Overnight, her hemoglobin had been roughly stable. She denies any current blood loss, fevers, chills, nausea, vomiting, or abdominal discomfort. Otherwise, she remains in her usual state of health. From a respiratory standpoint, things are stable and she has never had any abrupt or any acute issues there. PHYSICAL EXAMINATION: VITAL SIGNS: Afebrile, pulse 112, respirations 20, saturation 100% on 2.5 L nasal cannula, and blood pressure 163/81. GENERAL: The patient is awake, alert, in no apparent distress. LUNGS: Excellent air entry. There is no prolonged expiratory phase or wheezing present. HEART: Normal rate, regular. ABDOMEN: Soft, nontender, and nondistended. Bowel sounds are positive. MUSCULOSKELETAL: No cyanosis or clubbing. No pitting in the bilateral lower extremities. NEUROLOGIC: Grossly nonfocal. LABORATORY DATA: Hemoglobin is stable at 8.1. Basic metabolic profile is otherwise unremarkable. Magnesium is 1.5. ASSESSMENT: 1. Acute blood loss anemia, stable. 2. Lower gastrointestinal bleed, suspected. 3. Chronic obstructive pulmonary disease without current exacerbation. 4. Chronic hypoxic respiratory failure, at baseline. 5. Hypertension. DISCUSSION AND PLAN: The laboratory holiday will be given tomorrow, except for hemoglobin and hematocrit. From purely respiratory standpoint, the patient is stable for transition out of the hospital. As previously noted, she has declined further evaluation at this time for her underlying process. She will resume her home inhalers on discharge from the hospital. Pulmonary Critical Care will continue to follow if she remains in-house, but from purely lung perspective, she is optimized for transition home. Job ID: [id number]
[2018-03-19] MEDS: Mirtazapine 15 MG TAB PO SCH (20:29)
[2018-03-20] MEDS: traMADol HCl 50 MG TAB PO SCH (06:09)
[2018-03-20] MEDS: Budesonide 0.5 MG/2 ML NEB INH SCH (06:52)
[2018-03-20] MEDS: Arformoterol 15 MCG/2 ML NEB NEB SCH (06:52)
[2018-03-20 07:17] VITALS: BP 158/82; TEMP 97.4
[2018-03-20 07:40] LABS: Hemoglobin 8.4 g/dL (12.0-16.0)
[2018-03-20] MEDS: Saccharomyces boulardii 250 MG CAP PO SCH (08:40)
[2018-03-20] MEDS: Losartan 25 MG TAB PO SCH (08:40)
[2018-03-20] MEDS: Pantoprazole 40 MG VIAL IVP SCH (08:41)
[2018-03-20] MEDS: Amlodipine 10 MG TAB PO SCH (08:41)
--- NOTE | 2018-03-20 12:00 | DIS ---
DATE OF ADMISSION: 03/17/2018 DATE OF DISCHARGE: 03/20/2018 PRIMARY CARE PHYSICIAN: Dr. Cornelius Mcgraw. DISCHARGE DISPOSITION: Home. PRIMARY DISCHARGE DIAGNOSES: 1. Acute on chronic respiratory failure with hypoxia. 2. Chronic obstructive pulmonary disease exacerbation. 3. Gastrointestinal bleed. 4. Hypertensive urgency. 5. Lactic acidosis. 6. Hypokalemia. 7. Symptomatic anemia. SECONDARY DISCHARGE DIAGNOSES: 1. Chronic respiratory failure with hypoxia. 2. Protein-calorie malnutrition. 3. Scoliosis. 4. Hypertension. 5. Diastolic dysfunction. 6. Severe chronic obstructive pulmonary disease. PRIMARY PROCEDURE/OPERATION: None. RADIOLOGICAL INVESTIGATION: Chest x-ray was unremarkable. SIGNIFICANT LABORATORY DATA: WBC 13.0, hemoglobin 8.4, and platelets 329. Sodium 137, potassium 3.6, BUN 7, creatinine 0.63, calcium 8.8. LFT normal. Blood culture negative. DISCHARGE MEDICATION: 1. Tramadol 50 mg q.6 hourly p.r.n. 2. ProAir HFA two puffs q.6h hourly p.r.n. 3. Mucinex 600 mg daily. 4. Cozaar 50 mg daily. 5. Remeron 15 mg at bedtime. 6. Zoloft 50 mg p.o. daily. 7. DuoNeb q.4 hourly. 8. Amlodipine 10 mg daily. 9. Ferrous sulfate 325 mg p.o. daily. 10. Dulera two puff inhalation b.i.d. 11. Protonix 40 mg daily. 12. Prednisone 10 mg every other day. CONTRAINDICATION: None. CODE STATUS: Full code. INPATIENT CORROSION CONTROL TECHNICIAN: Dr. Ocampo was consulted for severe symptomatic anemia. Dr. Arellano was following while in the hospital. TEST RESULT PENDING ON DISCHARGE: None. ALLERGIES: CODEINE AND SHELLFISH. DISCHARGE PLAN: Posthospital, the patient is instructed to follow up with primary care physician, Dr. Adan, and Dr. Ocampo as instructed. HOSPITAL COURSE: A 68-year-old female, who was admitted by me on March 17, 2018. Please see my HPI for further details. The patient was initially evaluated at [place] [facility], where she was found with a hemoglobin 5.4. Initially, her hemoglobin was 4.5. She was given 3 units of blood transfusion there and subsequently, she received 1 unit of blood transfusion. After that, the patient's blood count remained stable. This patient was having increased prednisone dose by herself and that might have contributed to upper GI bleed. She might have chronic blood loss anemia as well because of she has iron deficiency anemia. On admission, she was also in respiratory distress and she was having hypoxia as well as COPD flare-up. She was requiring BiPAP in the emergency room. She was admitted to ICU because her blood pressure was so high that is why she was requiring Cardene drip to titrate the therapy. Pulmonary group was following while in the hospital. Subsequently, BiPAP was discontinued, Cardene drip was discontinued, and the patient was doing very well in the next day. While in hospital, we treated her with steroid IV fluid and antibiotic therapy. Subsequently, IV fluid and steroid were discontinued and changed to p.o. and reduce the dose to prevent further bleeding. This patient decided not to go for any kind of upper or lower endoscopy despite Gastroenterology recommended to identify the source of bleeding, but at this point, the patient made a decision not to go for those procedure and she will prefer that to be done as an outpatient basis after discharge. The patient was transferred to medical floor, where we continued with the p.o. medication and the patient was continuously doing very well. Her lactic acidosis and hypokalemia were corrected while in the hospital. Her H and H remained stable while in the hospital. The patient is ambulatory, tolerating p.o. well and up to her baseline level. While in the hospital, we have provided her nutritional support. PHYSICAL EXAMINATION: The patient is seen and examined at bedside today. VITAL SIGNS: Currently, temperature 97.4, pulse 90, respiratory rate 20, saturation 100% on 2 L, blood pressure 158/82, and weight 91 pounds. GENERAL: The patient is currently alert, awake. No obvious acute distress. HEENT: Head; normocephalic and atraumatic. Eyes; pupils round and reactive to light. Extraocular muscle intact. ENT; oropharynx within normal limits. Moist mucous membranes. No oral lesion. No pharyngeal erythema. No exudate. NECK: Supple. No JVD. LUNGS: Clear to auscultation without any rhonchi or rales. CARDIAC: S1 and S2, regular without any murmur. ABDOMEN: Soft and benign without any tenderness. EXTREMITIES: No edema. NEUROLOGIC: Nonfocal examination. The patient is medically stable for discharge today. Job ID: [id number]
--- NOTE | 2018-03-20 13:20 | PRG ---
DATE OF SERVICE: 03/20/2018 SERVICE: Pulmonary Medicine. INTERVAL HISTORY: The patient is doing fine from respiratory standpoint. She denies any current chest pain, fevers, or chills. There has been no interval change to her condition. Otherwise, she is breathing comfortably. PHYSICAL EXAMINATION: VITAL SIGNS: Afebrile, pulse 90, blood pressure 158/82, respirations 20, and saturation 100% on 3 L nasal cannula. GENERAL: The patient is awake and alert, in no apparent distress. LUNGS: Excellent air entry. There is a prolonged expiratory phase. No wheezing or rhonchi appreciated. HEART: Normal rate and regular. ABDOMEN: Soft, nontender, and nondistended. Bowel sounds are positive. MUSCULOSKELETAL: No cyanosis or clubbing. No pitting in the bilateral lower extremities. NEUROLOGIC: Grossly nonfocal. LABORATORY DATA: Hemoglobin 8.4. Blood cultures x2 are unremarkable. ASSESSMENT: 1. Acute blood loss anemia. 2. Gastrointestinal bleed, suspected. 3. Chronic obstructive pulmonary disease without current exacerbation. 4. Chronic hypoxic respiratory failure, at baseline. 5. Hypertension. DISCUSSION AND PLAN: The patient is stable for transition out of the hospital. At this point, she has no further requirements for inpatient Pulmonary/Critical Care opinion. I have strongly counseled the patient to pursue outpatient evaluation with Gastroenterology, so they can set up an EGD and colonoscopy in the outpatient setting. Certainly, if she starts to rebleed, she has been asked to return to clinic sooner. I once again tried to convince her to stay and have an EGD and colonoscopy, but she indicates to me that she is too busy and has company coming in. She understands that if she has a major bleeding event, there is a possibility that it could be life-threatening. That being said, she is adamant about being discharged from the hospital today. Job ID: [id number]
== END 2018-03-20 13:04 | disposition home or self-care (01) | DRG 190 ==
LOC: ERS 07:09 → CCU 08:10 → T4-B 03-18 16:44
PROVIDERS: ADMIT Internal Medicine; ATTEND Internal Medicine
DX: J44.1 Chronic obstructive pulmonary disease with (acute) exacerbation (principal); J96.22 Acute and chronic respiratory failure with hypercapnia; J96.21 Acute and chronic respiratory failure with hypoxia; R65.10 Systemic inflammatory response syndrome (SIRS) of non-infectious origin without acute organ dysfunction; E87.1 Hypo-osmolality and hyponatremia; I16.1 Hypertensive emergency; E87.2 Acidosis; K92.2 Gastrointestinal hemorrhage, unspecified; D62 Acute posthemorrhagic anemia; E44.0 Moderate protein-calorie malnutrition; D64.9 Anemia, unspecified; F41.9 Anxiety disorder, unspecified; F32.9 Major depressive disorder, single episode, unspecified; I10 Essential (primary) hypertension; Z99.81 Dependence on supplemental oxygen; E87.6 Hypokalemia; M41.9 Scoliosis, unspecified
CPT/HCPCS: 36415; 36430; 80048; 80053; 82728; 82805; 83540; 83550; 83605; 83735; 84484; 85014; 85018; 85025; 85060; 86850; 86900; 86901; 87040; 93005; 94640; 94660; 94760; 96365; 96366; 96367; C9113; J0360; J0692; J0696; J1940; J2543; J2920; J3370; J7050; J7506; J7611; J7620; J7626; P9016

== ENCOUNTER 2018-04-30 13:41 | Inpatient (IN) | payer MEDICARE ==
--- NOTE | 2018-04-30 14:46 | RAD ---
PORTABLE AP CHEST XRAY: DATE: 04/30/2018. HISTORY: Shortness of breath and elevated heart rate. COMPARISON: 08/06/2016. FINDINGS: Cardiac silhouette and pulmonary vasculature are within normal limits. The lungs remain hyperexpande d and clear. Prominent right convex scoliosis of the thoracic spine is present. Vascular calcificat ion in the visualized upper abdominal aorta involving the lower thoracic aorta. There has been no in terval change from the prior exam. IMPRESSION: Stable chest without evidence of an acute cardiopulmonary process. POS: [facility]
[2018-04-30 15:02] LABS: Hemoglobin 9.8 g/dL (12.0-16.0); Mean Corpuscular HGB CONC 28.1 g/dL (32.0-36.0); Mean Corpuscular Hemoglobin 21.6 pg (27.0-31.0); Mean Corpuscular Volume 76.9 fL (78.0-98.0); Mean Platelet Volume 5.1 fL (7.4-10.4); Platelet Count 462 thou/uL (130-400); RBC Distribution Width 27.9 % (11.5-14.5); Red Blood Cell (RBC) Count 4.53 mill/uL (4.20-5.40); White Blood Cell (WBC) Count 28.2 thou/uL (4.8-10.8)
[2018-04-30 15:19] LABS: ALT (SGPT) 11 U/L (8-55); AST (SGOT) 15 U/L (5-34); Alkaline Phosphatase 112 U/L (40-150); Anion Gap 19 mmol/L (10-20); BUN (Urea Nitrogen) 10 mg/dL (9.8-20.1); Bilirubin, Total 0.2 mg/dL (0.2-1.2); Calc. Creatinine Clearance 0 mL/min (70-130); Carbon Dioxide 25 mmol/L (23-31); Chloride 101 mmol/L (98-107); Estimated GFR-MDRD 78; Globulin 2.5 g/dL (2.4-3.5); Glucose 175 mg/dL (80-115); Potassium 3.5 mmol/L (3.5-5.1); Protein, Total 6.5 g/dL (6.0-8.3); Sodium 141 mmol/L (136-145)
[2018-04-30 15:30] LABS: Anisocytosis SLIGHT = 6-15 cells (100X) (0-5/hpf); Band 4 % (5-11); Hypochromia SLIGHT = 6-15 cells (100X) (0-5/hpf); MDiff Complete? YES; Neutrophil 96 % (42-75); Platelet Morphology Comment Appears Increased
[2018-04-30] MEDS ORDERED: Magnesium 2 GM/50 ML BAG (IN WATER) ONE (16:21)
[2018-04-30] MEDS ORDERED: Nitroglycerin 2% Ointment 1 INCH/1 GM Packet ONE (16:21)
[2018-04-30] MEDS ORDERED: methylPREDNISolone Sod Succ/PF 125 MG/2 ML VIAL ONE (16:21)
[2018-04-30] MEDS ORDERED: cefTRIAXone\\ROCEPHIN 1 GM VIAL ONE (16:21)
[2018-04-30] MEDS ORDERED: Benzonatate 100 MG CAP PO PRN (18:04)
[2018-04-30] MEDS ORDERED: Acetaminophen 500 MG TAB PO PRN (18:04)
[2018-04-30] MEDS ORDERED: Ondansetron ODT 4 MG TAB PO PRN (18:04)
[2018-04-30] MEDS ORDERED: Ondansetron PF 4 MG/2 ML Vial IVP PRN (18:04)
[2018-04-30] MEDS ORDERED: traMADol HCl 50 MG TAB PO PRN (18:04)
[2018-04-30] MEDS: Famotidine 20 MG TAB PO SCH (20:41)
[2018-04-30] MEDS ORDERED: Mirtazapine 15 MG TAB PO SCH (21:00)
[2018-04-30 21:42] VITALS: BMI 16.2
--- NOTE | 2018-04-30 21:59 | HP ---
PRIMARY CARE PROVIDER: James Mcgraw. CHIEF COMPLAINT: Shortness of breath. HISTORY OF PRESENT ILLNESS: This is a 68-year-old female, who presents to [facility] Emergency Department and transferred from [facility] for increasing shortness of breath and COPD exacerbation. The patient with longstanding history of acute on chronic hypoxic respiratory failure on chronic oxygen supplementation at home. The patient complained of increased shortness of breath, attempting to increase her medication use and bronchodilator therapy at home without success. The patient denied any specific fever or exposure history. However, was recently admitted between 03/17/2018 to 03/20/2018 for COPD exacerbation. The patient was also treated for gastrointestinal bleed, receiving 4 units of packed red blood cells. The patient was offered endoscopy, however, refused to proceed with evaluation and was managed medically. In the emergency room, the patient was noted with hypoxemia and placed on BiPAP noninvasive mechanical ventilation. The patient received multiple medications to include Solu-Medrol, DuoNeb, Lasix, aspirin and nitroglycerin paste. The patient also received magnesium sulfate and Rocephin. The patient currently states her respiratory symptoms have improved since evaluation in [facility]. PAST MEDICAL HISTORY: 1. Acute on chronic hypoxemic respiratory failure with chronic oxygen supplementation at 3 L/minute by nasal cannula. 2. Chronic obstructive pulmonary disease. 3. Gastrointestinal bleed, status post 4 units of packed red blood cells, 02/2018. 4. Severe microcytic anemia, acute on chronic. 5. Scoliosis. 6. Diastolic dysfunction. PAST SURGICAL HISTORY: Reviewed and negative. CURRENT MEDICATIONS: 1. ProAir HFA 90 mcg inhaled q.4 hours p.r.n. 2. Mucinex ER 600 mg p.o. b.i.d. 3. Cozaar 50 mg p.o. daily. 4. Mirtazapine 15 mg p.o. at bedtime. 5. Sertraline 50 mg p.o. daily. 6. Tramadol 50 mg p.o. q.6 hours p.r.n. 7. Amlodipine 10 mg p.o. daily. 8. Ferrous sulfate 325 mg p.o. daily. 9. DuoNeb 3 mL nebulized q.4 hours p.r.n. 10. Dulera 2 puffs inhaled b.i.d. 11. Protonix 40 mg p.o. daily. 12. Prednisone 5 mg p.o. daily. ALLERGIES: TO CODEINE, SHELLFISH, AND IODINE. FAMILY HISTORY: Positive for colon cancer. SOCIAL HISTORY: The patient is , accompanied by her in the emergency department. Sxtif-hbtd-sjpa smoking history, quitting in 2013. Occasional alcohol use. No illicit drug use. REVIEW OF SYSTEMS: CONSTITUTIONAL: Negative for weight loss or gain, ability to conduct usual activities. SKIN: Negative for rash, itching. EYES: Negative for double vision, pain. ENT/MOUTH: Negative for nose bleeding, neck stiffness, pain, tenderness. CARDIOVASCULAR: Negative for palpitations, dyspnea on exertion, orthopnea. RESPIRATORY: Negative for shortness of breath, wheezing, cough, hemoptysis, fever or night sweats. GASTROINTESTINAL: Negative for poor appetite, abdominal pain, heartburn, nausea, vomiting, constipation, or diarrhea. GENITOURINARY: Negative for urgency, frequency, dysuria, nocturia. MUSCULOSKELETAL: Negative for pain, swelling. NEUROLOGIC/PSYCHIATRIC: Negative for anxiety, depression. ALLERGY/IMMUNOLOGIC: Negative for skin rash, bleeding tendency. Otherwise negative as stated per HPI. PHYSICAL EXAMINATION: VITAL SIGNS: On admission, blood pressure 131/86, pulse 115, respiratory rate is 27, temperature 98 degrees Fahrenheit, O2 saturation 100% on BiPAP noninvasive mechanical ventilation. GENERAL APPEARANCE: This is a 68-year-old female, on BiPAP noninvasive mechanical ventilation. Alert and oriented x3, in no acute distress. HEENT: Pupils are equal, round, reactive to light and accommodation. Extraocular muscles are intact. No scleral icterus. No conjunctival injection. Nares patent. OP is clear. NECK: Supple. No cervical adenopathy. No thyromegaly. No carotid bruits. No JVD appreciated. Cervical spine with full active and passive range of motion. No meningeal signs appreciated. CHEST: Diminished breath sounds in the bases bilaterally. Occasional expiratory wheeze bilaterally. CARDIOVASCULAR: S1 and S2 with tachycardia. No murmur, rub, or gallop appreciated. ABDOMEN: Flat, soft, nontender, and nondistended. Bowel sounds are positive in all 4 quadrants. No hepatosplenomegaly. No abdominal bruits. No rebound or guarding appreciated. EXTREMITIES: Warm and dry with fair turgor. No clubbing, cyanosis, or asymmetric edema appreciated. Generalized muscle atrophy noted. NEUROLOGIC: Cranial nerves 2 through 12 are grossly intact. No focal or lateralizing signs appreciated. PERTINENT LAB AND X-RAY FINDINGS: Basic metabolic profile within normal limits. Lactic acid level 1.9. LFTs within normal limits. CBC showed a white blood cell count of 28.2, hemoglobin 9.8, hematocrit 35, MCV 77, platelet count 462 with 96% neutrophils, 4% bands. Portable chest x-ray dated 04/30/2018 showed hyperinflation of bilateral lung pina. Flattening of the diaphragms. Prominent scoliosis of thoracic spine. No acute infiltrate identified. EKG dated 04/30/2018, by my interpretation, shows sinus tachycardia with heart rates in the 120s. Attenuated R-waves noted in the precordial leads. Normal axis. No acute ST-T wave changes appreciated. ASSESSMENT/PLAN: 1. Acute on chronic hypoxic respiratory failure. The patient will be admitted to the medical floor. We will discontinue BiPAP noninvasive mechanical ventilation, the patient required initially. Transition to oxygen via nasal cannula at 3 to 4 L per nasal cannula. Solu-Medrol 40 mg IV q.6 hours with additional Zithromax 500 mg p.o. daily. Continue bronchodilator therapy with DuoNeb. Resume Dulera two puffs b.i.d. 2. Chronic obstructive pulmonary disease exacerbation. See #1 above. Continue bronchodilator therapy and general pulmonary supportive management. Consider pulmonology consultation if the patient clinically decompensates. 3. Sinus tachycardia. Suspect secondarily to increased beta2-agonist exposure. We will continue symptomatic and supportive management. 4. Chronic microcytic anemia. We will continue Protonix 40 mg p.o. daily. Serial CBC monitoring. Add ferrous sulfate 325 mg daily. 5. Neutrophilic leukocytosis. Suspect secondarily to demargination and steroid exposure. Repeat CBC in the a.m. 6. Prophylaxis. SCDs while in bed. Protonix 40 mg p.o. daily. 7. Code status is full. Surrogate medical decision maker is the patient's spouse. Job ID: [id number]
[2018-05-01] MEDS ORDERED: Mometasone/Formoterol 120 PUFF INHALER INH SCH (06:30)
[2018-05-01 08:28] LABS: Hemoglobin 9.3 g/dL (12.0-16.0); Mean Corpuscular Hemoglobin 21.7 pg (27.0-31.0); Mean Platelet Volume 4.9 fL (7.4-10.4); Platelet Count 495 thou/uL (130-400); RBC Distribution Width 27.9 % (11.5-14.5); Red Blood Cell (RBC) Count 4.26 mill/uL (4.20-5.40); White Blood Cell (WBC) Count 20.4 thou/uL (4.8-10.8)
[2018-05-01] MEDS: Famotidine 20 MG TAB PO SCH (08:30)
[2018-05-01 08:40] LABS: Anion Gap 16 mmol/L (10-20); BUN (Urea Nitrogen) 12 mg/dL (9.8-20.1); Calc. Creatinine Clearance 50 mL/min (70-130); Calcium 9.2 mg/dL (7.8-10.44); Carbon Dioxide 28 mmol/L (23-31); Chloride 98 mmol/L (98-107); Estimated GFR-MDRD 86; Glucose 125 mg/dL (80-115); Potassium 3.7 mmol/L (3.5-5.1); Sodium 138 mmol/L (136-145)
[2018-05-01] MEDS ORDERED: Azithromycin 250 MG TAB PO SCH (09:00)
[2018-05-01] MEDS ORDERED: guaiFENesin ER 600 MG TAB PO SCH (09:00)
[2018-05-01] MEDS ORDERED: Ferrous Sulfate 325 MG TAB PO SCH (09:00)
[2018-05-01] MEDS ORDERED: Amlodipine 10 MG TAB PO SCH (09:00)
[2018-05-01 09:45] LABS: Band 3 % (5-11); Hypochromia MODERATE=16-30 cells (100X) (0-5/hpf); Lymphocytes 2 % (21-51); MDiff Complete? YES; Microcytosis SLIGHT = 6-15 cells (100X) (0-5/hpf); Monocytes 3 % (0-10); Neutrophil 92 % (42-75); Platelet Morphology Comment Appears Increased; Polychromasia SLIGHT = 2-3 cells (100X) (0-2/hpf); Schistocytes SLIGHT = 2-5 cells (100X) (0-1/hpf)
[2018-05-01 12:22] VITALS: BP 165/91; TEMP 97.5
--- NOTE | 2018-05-01 12:50 | DIS ---
DATE OF ADMISSION: 04/30/2018 DATE OF DISCHARGE: 05/01/2018 DISCHARGE DIAGNOSES: 1. Acute on chronic hypoxic hypercapnic respiratory failure. 2. Acute chronic obstructive pulmonary disease exacerbation, resolved. 3. Sinus tachycardia secondary to #1. 4. Chronic microcytic anemia. 5. Neutrophilic leukocytosis. CONSULTATIONS: None. PERTINENT LAB AND X-RAY FINDINGS: Basic metabolic profile within normal limits. Lactic acid level 1.9. CBC showed a white blood cell count ranged between 20.4 to 28.2 and hemoglobin ranged between 9.3 to 9.8. Portable chest x-ray dated 04/30/2018 showed no acute infiltrates. HOSPITAL COURSE: The patient was admitted to the medical floor after initially presenting with acute on chronic hypoxic respiratory failure in the context of COPD exacerbation. The patient was initially managed with BiPAP noninvasive mechanical ventilation as well as given IV Solu-Medrol, bronchodilator therapy, and Zithromax. The patient rapidly clinically improved and transitioned from noninvasive mechanical ventilation to baseline oxygen via nasal cannula at 3 to 4 L per nasal cannula. The patient overall remained clinically stable through the hospital course with stable vital signs. I have examined the patient at time of discharge and discussed followup instructions. The patient verbalized understanding and in agreement and ready for discharge on 05/01/2018. DISCHARGE MEDICATIONS: 1. Prednisone 20 mg 2 tabs p.o. daily x3 days, followed by 1 tab p.o. daily x3 days, followed by half a tab p.o. daily x3 days. 2. Protonix 40 mg 1 tab p.o. daily. 3. Dulera two puffs inhaled b.i.d. 4. DuoNeb 3 mL nebulized q.4 hours p.r.n. 5. Ferrous sulfate 325 mg p.o. daily. 6. Amlodipine 10 mg p.o. daily. 7. Tramadol 50 mg p.o. q.6 hours p.r.n. 8. Sertraline 50 mg p.o. daily. 9. Mirtazapine 15 mg p.o. at bedtime. 10. Losartan 100 mg p.o. daily. 11. Mucinex 600 mg p.o. b.i.d. 12. ProAir HFA 90 mcg inhaled q.4 hours p.r.n. FOLLOWUP: The patient may follow up with her primary care provider, Dr. Cornelius Mcgraw, within 7 days of discharge. The patient may follow up with Dr. Min Adan with Pulmonology Service and to call his office for appointment time and date. CONDITION ON DISCHARGE: Stable. ACTIVITY: Ad-tanmay. DIET: Regular. CODE STATUS: Full. DISPOSITION: Home on 05/01/2018. Job ID: [id number]
== END 2018-05-01 15:25 | disposition home or self-care (01) | DRG 189 ==
LOC: ERS 13:41 → T4-A 17:54
PROVIDERS: ADMIT Family Medicine; ATTEND Family Medicine
PROC: 5A09357 Assistance with Respiratory Ventilation, Less than 24 Consecutive Hours, Continuous Positive Airway Pressure (ICD-10-PCS; principal; 2018-04-30)
DX: J96.21 Acute and chronic respiratory failure with hypoxia (principal); J44.1 Chronic obstructive pulmonary disease with (acute) exacerbation; J96.22 Acute and chronic respiratory failure with hypercapnia; M41.9 Scoliosis, unspecified; R00.0 Tachycardia, unspecified; D50.9 Iron deficiency anemia, unspecified; D72.828 Other elevated white blood cell count; Z99.81 Dependence on supplemental oxygen; Z79.899 Other long term (current) drug therapy; Z88.5 Allergy status to narcotic agent; Z91.013 Allergy to seafood; Z91.041 Radiographic dye allergy status; Z87.891 Personal history of nicotine dependence
CPT/HCPCS: 36415; 71045; 80048; 80053; 83605; 85007; 85025; 85027; 93005; 94640; 94660; 96365; 96375; J0696; J2920; J2930; J3475; J7620

== ENCOUNTER 2018-11-16 19:05 | Inpatient (IN) | payer MEDICARE ==
[2018-11-16] MEDS ORDERED: Pantoprazole 40 MG VIAL ONE (20:04)
[2018-11-16] MEDS ORDERED: Pantoprazole 80 MG, Admixture Fee 1 EACH in Sodium Chloride 0.9% 100 ML IVPB SCH (20:15)
[2018-11-16 20:26] LABS: Hemoglobin 6.4 g/dL (12.0-16.0); Mean Corpuscular HGB CONC 27.5 g/dL (32.0-36.0); Mean Corpuscular Hemoglobin 16.5 pg (27.0-31.0); Mean Corpuscular Volume 59.9 fL (78.0-98.0); Red Blood Cell (RBC) Count 3.86 mill/uL (4.20-5.40); White Blood Cell (WBC) Count 15.4 thou/uL (4.8-10.8)
[2018-11-16 20:27] LABS: #Basophils 0.1 thou/uL (0.0-0.2); #Eosinphils 0.4 thou/uL (0.0-0.7); #Lymphocytes 2.7 thou/uL (1.20-3.40); #Monocytes 1.4 thou/uL (0.11-0.59); #Neutrophils 10.7 thou/uL (1.40-6.50); %Basophils 0.5 % (0.0-1.0); %Eosinophils 2.6 % (0.0-10.0); %Lymphocytes 17.8 % (21.0-51.0); %Monocytes 9.2 % (0.0-10.0); %Neutrophils 69.9 % (42.0-75.0)
[2018-11-16 20:55] LABS: Anisocytosis MODERATE=16-30 cells (100X) (0-5/hpf); Elliptocytes SLIGHT = 2-5 cells (100X) (0-1/hpf); Hypochromia MODERATE=16-30 cells (100X) (0-5/hpf); MDiff Complete? YES; Mean Platelet Volume 5.6 fL (7.4-10.4); Microcytosis MARKED = >30 cells (100X) (0-5/hpf); Platelet Count 488 thou/uL (130-400); Platelet Morphology Comment Appears Increased; Reflex for Review?? YES; Tear Drops SLIGHT = 2-5 cells (100X) (0-1/hpf)
[2018-11-16] MEDS ORDERED: Ondansetron PF 4 MG/2 ML Vial IVP PRN (21:16)
[2018-11-16] MEDS ORDERED: Ondansetron ODT 4 MG TAB SL PRN (21:16)
[2018-11-16] MEDS ORDERED: Acetaminophen 325 MG TAB PO PRN (21:16)
[2018-11-16 21:38] VITALS: BMI 17.6
[2018-11-16] MEDS ORDERED: traMADol HCl 50 MG TAB PO PRN (22:01)
[2018-11-16] MEDS ORDERED: PROVENTIL INHALER 6.7 G (200 INHALATIONS) INH PRN (22:01)
[2018-11-16 22:19] LABS: Hemoglobin 6.3 g/dL (12.0-16.0)
[2018-11-16] MEDS ORDERED: Mirtazapine 15 MG TAB PO SCH (23:00)
[2018-11-16] MEDS ORDERED: Budesonide 0.5 MG/2 ML NEB INH SCH (23:45)
--- NOTE | 2018-11-17 01:32 | HP ---
PRIMARY CARE PHYSICIAN: Dr. Cornelius Mcgraw. CODE STATUS: Full code. TIME OF EVALUATION: 9:45 p.m. CHIEF COMPLAINT: "Feeling short of breath and saw some red blood in my stools." HISTORY OF PRESENT ILLNESS: This is a 68-year-old female patient with past medical history of COPD, chronic hypoxic respiratory failure. The patient came to the hospital, transferred from [facility] and complaining of shortness of breath, generalized weakness associated with red blood in the stools. The patient denies having any GI bleeding in the past. The symptoms are autuhcnc-vl-przcdf. She is unable to do her activities of daily living and they are exacerbated by exertion. REVIEW OF SYSTEMS: All systems reviewed were negative except for the findings mentioned above. PAST MEDICAL HISTORY: Positive for COPD, hypertension. PAST SURGICAL HISTORY: Colonoscopy 9 years ago. PSYCHIATRIC HISTORY: No previous psych history. SOCIAL HISTORY: She lives at home with family. Drinks socially. No drug use. She is a former cigarette smoker. FAMILY HISTORY: Reviewed and noncontributory for current presentation except for the father having colon cancer. KNOWN ALLERGIES: Iodine, shellfish containing products. REPORTED MEDICATIONS: 1. Albuterol. 2. Losartan. 3. Budesonide. 4. Sertraline. 5. Perforomist. 6. Mucinex. 7. Prednisone. 8. Spiriva. 9. Tramadol. PHYSICAL EXAMINATION: VITAL SIGNS: On presentation; blood pressure 170/103 with heart rate 108, respiratory rate was 16, temperature 98.1, pain was 0/10, oxygen saturation was 100% on room air. GENERAL APPEARANCE: The patient is alert, oriented, not in acute distress the patient is ambulating. HEENT: Eyes, normal conjunctivae. Moist oral mucosa. Anicteric. No JVD. RESPIRATORY: Bilateral air entry. No rales. No wheezing. Symmetric expansion. CARDIOVASCULAR: The patient has mild tachycardia. No murmurs. No gallop. No edema. ABDOMEN: Soft. Normal bowel sounds. MUSCULOSKELETAL: Baseline range of motion and strength. SKIN: Warm and intact. No pallor. No rash. No redness. Capillary refill seems to be intact. NEURO: No evidence of any new focal weakness. PSYCH: The patient is in good mood and optimal judgment. LABORATORY DATA: Reviewed. The patient has a white count of 15.4, hemoglobin 6.4, repeat one 6.3, MCV 59.9, platelet count 488. The patient has hypochromia, anisocytosis, microcytosis. Labs were reviewed. The patient's glucose is 94, BUN 8, creatinine 0.67, sodium 138, potassium 3.9, chloride 99, carbon dioxide was 28, calcium 9.7, bilirubin 0.3, alkaline phosphatase 99. LFTs were negative. GFR was greater than 16. Troponin was negative. ASSESSMENT AND PLAN: The patient will be placed in the hospital following medical problems: 1. Symptomatic anemia and the patient have hemoglobin of 6.2, has been transfused. We will monitor and treat accordingly. 2. She has possible gastrointestinal bleed and the patient saw some red blood in the stools for the past few days. We will consult GI. We will monitor hemoglobin. We will transfuse as needed. The patient has been started on Protonix. We will continue for now the Protonix. 3. Deep venous thrombosis prophylaxis. 4. The patient will be placed on SCDs. 5. Uncontrolled hypertension on presentation. Reconcile home medications. We will not treat aggressively since patient was anemic with possible gastrointestinal bleeding. 6. History of chronic obstructive pulmonary disease, chronic, stable, reconcile home medications. 7. History of chronic hypoxic respiratory failure. The patient is on home oxygen that we will continue for now. Job ID: [id number]
[2018-11-17] MEDS: Arformoterol 15 MCG/2 ML NEB NEB SCH ×2 (07:05→18:22)
[2018-11-17] MEDS: Budesonide 0.5 MG/2 ML NEB NEB SCH ×2 (07:07→18:22)
[2018-11-17 07:30] LABS: Hemoglobin 9.9 g/dL (12.0-16.0)
[2018-11-17 07:43] LABS: Anion Gap 12 mmol/L (10-20); BUN (Urea Nitrogen) 5 mg/dL (9.8-20.1); Calc. Creatinine Clearance 60 mL/min (70-130); Calcium 8.4 mg/dL (7.8-10.44); Carbon Dioxide 28 mmol/L (23-31); Chloride 101 mmol/L (98-107); Estimated GFR-MDRD Greater than 90; Glucose 76 mg/dL (80-115); Potassium 3.4 mmol/L (3.5-5.1); Sodium 138 mmol/L (136-145)
[2018-11-17] MEDS ORDERED: Enoxaparin Sodium 40 MG/0.4 ML SYRINGE SC SCH (09:00)
[2018-11-17] MEDS: Losartan 25 MG TAB PO SCH (09:26)
[2018-11-17] MEDS: predniSONE 5 MG TAB PO SCH (09:27)
[2018-11-17] MEDS: guaiFENesin ER 600 MG TAB PO SCH (09:27)
[2018-11-17] MEDS ORDERED: Sodium Chloride 0.9% (PF) 10 ML VIAL FS PRN (10:22)
[2018-11-17] MEDS ORDERED: GoLYTELY 4,000 ml Bottle PO SCH (10:30)
[2018-11-17 10:39] LABS: Hemoglobin 10.1 g/dL (12.0-16.0)
--- NOTE | 2018-11-17 10:47 | CON ---
DATE OF CONSULTATION: 11/17/2018 REASON FOR CONSULTATION: Anemia, hematochezia. CONSULTING PROVIDER: Racquel Strickland MD HISTORY OF PRESENT ILLNESS: The patient is a 68-year-old female with past medical history of COPD, chronic hypoxic respiratory failure, hypertension, and anemia, presenting with complaints of anemia. She states that she was in her usual state of health until approximately 1 week ago when she again began having increased pallor as well as shortness of breath at rest and dyspnea on exertion. She was ultimately seen by her PCP for this condition and noted to have severe anemia with recommendations to immediately go to the hospital for further evaluation. She was then seen in the [facility] ER, where she was noted to have a significantly decreased H and H, and ultimately, admitted to the hospital for further evaluation. She states that for approximately 2 days, she had been having increased episodes of hematochezia characterized as bright red blood per rectum that was both on the toilet paper and in the toilet. This was always associated with defecation and the passage of a bowel movement with no episodes of grossly bloody stools. This occurred for approximately 2 days at the end of last week and has since resolved. However, she also adds that she has been having a longstanding history of loose stools that have been present "for as long as I can remember." While here in the hospital, she currently denies any nausea, vomiting, fevers, chills, hematemesis, melena, weight loss, dysphagia or odynophagia. Of note, the patient was admitted to the hospital in February 2018, with complaints of melenic type stools and significant anemia noted at that time. She was evaluated by the GI service and refused both upper endoscopy and colonoscopy at that time. REVIEW OF SYSTEMS: A 10-category review of systems was obtained with all responses negative, except for the pertinent positives as listed in the HPI. PAST MEDICAL HISTORY: As per HPI. PAST SURGICAL HISTORY: Colonoscopy. FAMILY HISTORY: States that her father was diagnosed with colon cancer at the age of 58. No other stated history of colon polyps or cancer. SOCIAL HISTORY: Denies any tobacco or illicit drug use, although she is a former cigarette smoker. Drinks approximately 2 to 3 drinks every 1 to 2 weeks. OUTPATIENT MEDICATIONS: Reviewed. ALLERGIES: IODINE AND SHELLFISH. PHYSICAL EXAMINATION: VITAL SIGNS: Temperature 98, pulse 96, blood pressure 196/91, respiratory rate 16, saturating 98% on 3 L nasal cannula. GENERAL: The patient was lying in bed, in no acute distress. Alert and oriented x4. HEENT: Normocephalic and atraumatic. NECK: Supple. No JVD or scleral icterus noted. CARDIOVASCULAR: Regular rate and rhythm. No discernible murmurs, gallops, or rubs. RESPIRATORY: Diminished breath sounds heard in the bilateral lower lung pina, but otherwise clear to auscultation bilaterally with no discernible wheezes or rales. ABDOMEN: Normoactive bowel sounds. Soft, nontender, nondistended. EXTREMITIES: No cyanosis, clubbing, or edema. Multiple ecchymoses noted upon the upper extremities presumably due to IV sticks. LABORATORY DATA: CBC, white blood cell count of 15.4. Current hemoglobin 9.9. Current hematocrit 33.6, platelets 488. Chemistry with a sodium of 138, potassium 3.4, chloride 101, CO2 of 28, BUN 5, creatinine 0.61, glucose 76. IMAGING DATA: No current GI imaging is available for review. ASSESSMENT AND PLAN: The patient is a 68-year-old female with past medical history of chronic obstructive pulmonary disease, chronic hypoxic respiratory failure, hypertension, and anemia, presenting with symptomatic anemia and hematochezia. Anemia/hematochezia. The patient was admitted to the hospital in February 2018, with complaints of melenic type stools along with a significant decrease in her H and H concerning for GI bleed. She was evaluated by the GI Service at that time with recommendations for both EGD and colonoscopy, but she refused these imaging modalities at that time. She received blood transfusions and was ultimately discharged to home with followup by her PCP. More recently, she had been displaying increased skin pallor as well as increased shortness of breath at rest and dyspnea on exertion (increased when compared to baseline) with concern for continued anemia. She was evaluated by her PCP, which noted a significantly decreased H and H when compared to baseline, and ultimately, recommendations for admitted to the hospital for further evaluation. At this time, given her hematochezia type bowel movements last week and a normal BUN to creatinine ratio, the likelihood of a lower GI bleed is higher. However, given her history of anemia and melenic type stools in February of this last year, an upper GI bleed cannot necessarily be ruled out at this time. Differential could include esophagitis, gastritis, arteriovenous malformation, Dieulafoy lesion, peptic ulcer disease, diverticular bleeding (less likely) and/or GI neoplasm. Given her family history of colon cancer, a colonic malignancy is higher on the differential. RECOMMENDATIONS: 1. Would continue to trend H and H and transfuse as necessary to maintain an H and H of 7/21. 2. Continue to monitor clinically for signs of active GI bleeding. 3. Would place the patient on a clear liquid diet today and make her n.p.o. at midnight, except for medications in anticipation for the EGD colonoscopy tomorrow. 4. We will plan for both EGD and colonoscopy tomorrow after GoLYTELY prep tonight. 5. Would discontinue the PPI drip, but transfer to pantoprazole 40 mg b.i.d. We will continue to follow. Please call with any questions. Job ID: [id number]
--- NOTE | 2018-11-17 11:13 | PDOC.HOSPP ---
- Subjective Encounter Date: 11/17/18 Encounter Time: 09:30 Subjective: Reports light brown stools x 2 overnights; previously with red blood following bowel movements intermittently over the last one week. No N/V, abdominal pain, SOB/palpitations. Notes breathing improved after transfusions completed. - Objective Vital Signs & Weight: Vital Signs (12 hours) Temp Pulse Pulse Resp BP BP Pulse Ox 11/17/18 10:20 83 16 100 11/17/18 08:04 98.0 F 96 16 196/91 H 98 11/17/18 07:08 100 11/17/18 07:07 88 20 100 11/17/18 07:05 88 20 100 11/17/18 05:50 98.1 F 99 18 180/90 H 11/17/18 04:42 98.4 F 97 18 177/92 H 97 11/17/18 02:15 100 20 99 11/17/18 01:53 97.2 F L 100 20 186/90 H 11/17/18 00:15 100 18 100 11/17/18 00:05 97.8 F 99 20 100 11/16/18 23:24 99 Weight Weight 93 lb 6.4 oz I&O: 11/16/18 11/17/18 11/18/18 06:59 06:59 06:59 Intake Total 2175 Balance 2175 Result Diagrams: 11/17/18 10:20 11/17/18 07:13 ROS - Medication Medications: Active Medications Generic Name Dose Route Start Last Admin Trade Name Freq PRN Reason Stop Dose Admin Albuterol Sulfate 1 puff 11/16/18 22:01 11/16/18 22:52 Proventil Hfa INH 1 puff Q4H PRN Administration SOB &/or Wheezing Albuterol/Ipratropium 3 ml 11/17/18 02:30 11/17/18 10:20 Duoneb NEB 3 ml [id number] FAMILIA Administration Arformoterol Tartrate 15 mcg 11/17/18 06:30 11/17/18 07:05 Brovana NEB 15 mcg BID-RT FAMILIA Administration Budesonide 0.5 mg 11/17/18 06:30 11/17/18 07:07 Pulmicort Neb Solution NEB 0.5 mg BID-RT FAMILIA Administration Guaifenesin 600 mg 11/17/18 09:00 11/17/18 09:27 Mucinex PO 600 mg DAILY FAMILIA Administration Losartan Potassium 50 mg 11/17/18 09:00 11/17/18 09:26 Cozaar PO 50 mg DAILY FAMILIA Administration Prednisone 5 mg 11/17/18 09:00 11/17/18 09:27 Prednisone PO 5 mg DAILY FAMILIA Administration Tramadol HCl 50 mg 11/16/18 22:01 11/16/18 22:49 Ultram PO 50 mg Q6HR PRN Administration Pain - Exam NAD General - other findings: pleasant Eye: PERRL ENT: moist mucosa Neck: supple, no lymphadenopathy Heart: RRR Heart - other findings: mildly tachycardic Respiratory - other findings: Home oxygen in place, distant breath sounds Gastrointestinal: soft, non-tender, non-distended Extremities: no edema Neurological: no focal deficits Psychiatric: A&O x 3 Hosp A/P (1) Chronic respiratory failure with hypoxia, on home O2 therapy Code(s): J96.11 - CHRONIC RESPIRATORY FAILURE WITH HYPOXIA; Z99.81 - DEPENDENCE ON SUPPLEMENTAL OXYGEN Status: Acute (2) GI bleed Code(s): K92.2 - GASTROINTESTINAL HEMORRHAGE, UNSPECIFIED Status: Acute (3) Hypokalemia Code(s): E87.6 - HYPOKALEMIA Status: Acute (4) Symptomatic anemia Code(s): D64.9 - ANEMIA, UNSPECIFIED Status: Acute (5) Anxiety and depression Code(s): F41.9 - ANXIETY DISORDER, UNSPECIFIED; F32.9 - MAJOR DEPRESSIVE DISORDER, SINGLE EPISODE, UNSPECIFIED Status: Chronic (6) HTN (hypertension), benign Code(s): I10 - ESSENTIAL (PRIMARY) HYPERTENSION Status: Chronic - Plan 1. GI - appreciate GI eval. EGD/colo tomorrow; patient declined these procedures and did not follow up Feb 2018, as her symptoms had resolved and she felt the procedures would not be necessary. Cont oral PPI. 2. Heme - check AM CBC 3. Pulm - home COPD meds/oxygen
[2018-11-17 19:32] LABS: Hemoglobin 10.8 g/dL (12.0-16.0)
[2018-11-17] MEDS: Pantoprazole 40 MG VIAL IVP SCH (20:28)
[2018-11-17] MEDS ORDERED: Mirtazapine 15 MG TAB PO SCH (21:00)
[2018-11-18 05:26] LABS: Anion Gap 13 mmol/L (10-20); BUN (Urea Nitrogen) 5 mg/dL (9.8-20.1); Calc. Creatinine Clearance 60 mL/min (70-130); Calcium 8.4 mg/dL (7.8-10.44); Carbon Dioxide 27 mmol/L (23-31); Chloride 97 mmol/L (98-107); Estimated GFR-MDRD Greater than 90; Glucose 75 mg/dL (80-115); Potassium 3.3 mmol/L (3.5-5.1); Sodium 134 mmol/L (136-145)
[2018-11-18 05:57] LABS: #Basophils 0.1 thou/uL (0.0-0.2); #Eosinphils 0.4 thou/uL (0.0-0.7); #Lymphocytes 2.6 thou/uL (1.20-3.40); #Monocytes 1.1 thou/uL (0.11-0.59); #Neutrophils 8.4 thou/uL (1.40-6.50); %Basophils 0.5 % (0.0-1.0); %Eosinophils 3.5 % (0.0-10.0); %Lymphocytes 20.7 % (21.0-51.0); %Monocytes 8.6 % (0.0-10.0); %Neutrophils 66.6 % (42.0-75.0); Anisocytosis MODERATE=16-30 cells (100X) (0-5/hpf); Elliptocytes SLIGHT = 2-5 cells (100X) (0-1/hpf); Hemoglobin 10.1 g/dL (12.0-16.0); Hypochromia SLIGHT = 6-15 cells (100X) (0-5/hpf); MDiff Complete? YES; Mean Corpuscular HGB CONC 30.7 g/dL (32.0-36.0); Mean Corpuscular Hemoglobin 20.8 pg (27.0-31.0); Mean Corpuscular Volume 67.6 fL (78.0-98.0); Mean Platelet Volume 5.8 fL (7.4-10.4); Platelet Count 435 thou/uL (130-400); Platelet Morphology Comment Appears Adequate; RBC Distribution Width 28.9 % (11.5-14.5); Red Blood Cell (RBC) Count 4.84 mill/uL (4.20-5.40); White Blood Cell (WBC) Count 12.5 thou/uL (4.8-10.8)
[2018-11-18] MEDS: Arformoterol 15 MCG/2 ML NEB NEB SCH (06:32)
[2018-11-18] MEDS: Budesonide 0.5 MG/2 ML NEB NEB SCH (06:35)
[2018-11-18] MEDS: Pantoprazole 40 MG VIAL IVP SCH (08:40)
[2018-11-18] MEDS: predniSONE 5 MG TAB PO SCH (08:43)
[2018-11-18] MEDS: guaiFENesin ER 600 MG TAB PO SCH (08:43)
[2018-11-18] MEDS: Losartan 25 MG TAB PO SCH (08:43)
[2018-11-18] MEDS ORDERED: PROPOFOL 200 MG/20 ML VIAL ONE (10:55)
[2018-11-18] MEDS ORDERED: Lidocaine 1% PF 5 ML VIAL ONE (10:55)
[2018-11-18] MEDS ORDERED: Metoprolol Tartrate 5 MG/5 ML VIAL ONE (10:55)
[2018-11-18] MEDS ORDERED: HYDROmorphone 2 MG/ML VIAL SLOW IVP PRN (12:06)
[2018-11-18] MEDS ORDERED: Meperidine HCl/PF 25 MG/ML VIAL SLOW IVP PRN (12:06)
[2018-11-18] MEDS ORDERED: Ondansetron HCl/PF 4 MG/2 ML Vial IVP PRN (12:06)
[2018-11-18] MEDS ORDERED: Promethazine HCl 25 MG/ML VIAL IM PRN (12:06)
[2018-11-18] MEDS ORDERED: Promethazine HCl 25 MG/ML VIAL SLOW IVP PRN (12:06)
--- NOTE | 2018-11-18 13:45 | OP ---
DATE OF PROCEDURE: 11/18/2018 PROCEDURES PERFORMED: Esophagogastroduodenoscopy with biopsy and control of hemorrhage, colonoscopy with biopsies and submucosal injection (tattoo placement). INDICATION FOR PROCEDURE: Anemia of unknown origin. DESCRIPTION OF PROCEDURE: After the risks and benefits of the procedures were explained to the patient including risks of bleeding, infection, perforation, reactions to anesthesia, aspiration, and/or pain, informed consent was obtained. The patient was then taken to the endoscopy suite, where deep sedation was administered via propofol and anesthesia support. Once the patient was adequately sedated and maneuvered into the left lateral decubitus position, the standard gastroscope was introduced into the mouth with intubation of the esophagus, stomach, and the proximal small intestines with the findings listed below. The patient tolerated the procedure well with no immediate perioperative complications, although significant scope trauma was noted during this portion of the procedure (details listed below). Upon conclusion of this portion of the procedure, all equipment was removed from the patient and the bed was rotated 180 degrees in anticipation of the colonoscopy. Once the bed was rotated, a digital rectal examination was performed followed by introduction of the standard colonoscope into the rectum and advanced to approximately 12 cm past the anal verge with further progress impeded by the presence of a large rectal mass that was unable to be traversed with the colonoscope. The quality of the prep was good to excellent, although visualization of the left colon, transverse and right colon was not performed during this examination. The patient tolerated the procedure well with no immediate perioperative complications. Upon conclusion of the procedure, all equipment was removed from the patient and the patient was transferred to PACU in satisfactory condition. EGD FINDINGS: Esophagus: Normal-appearing mucosa was seen in both the proximal and mid esophagus, however, a higher grade 2 esophageal stricture was noted in the distal esophagus that was able to be traversed with the gastroscope with mild difficulty and pressure to the stricture itself. The stricture appeared intrinsic and benign with no malignant features. There were no associated erosions, ulcerations, mass, lesions, or active/recent bleeding. However, upon traversing the stricture with the scope, mild dilation was performed just with this passage and it did exhibit oozing of blood. Further dilation was not performed. Given the dilation with the scope itself. Stomach: Normal-appearing mucosa was initially seen in the gastric cardia, fundus, body, greater curvature, antrum, and incisura. However, upon evaluation of the small intestine and retroflexion in the stomach, there were large mucosal rents (three to be exact) in the gastric fundus measuring approximately in length. These rents were linear in information and did exhibit oozing of blood as well as exposure of the submucosa. It is unclear if this was due to barotrauma from the scope itself or from physical manipulation secondary to passage of the scope. In any case, five hemoclips were placed to approximate the mucosal defects generated by these mucosal rents with good hemostasis achieved. Minimal oozing of blood was noted at the end of this maneuver. Otherwise, there was no evidence of erosions, ulcerations, mass, or mass lesions. Multiple random biopsies were taken throughout the stomach. Given the decreased pliability of the stomach and possibility of linitis plastica. Duodenum: Normal-appearing mucosa was seen in both the duodenal bulb and second portion of the duodenum. There was no evidence of erosions, ulcerations, mass, lesions, or active/recent bleeding. IMPRESSION: 1. Higher grade esophageal stricture in the distal esophagus that was benign-appearing and dilated with the passage to the scope generating a small mucosal rent and bleeding. 2. Large linear mucosal rents measuring in length seen in the gastric fundus secondary to scope trauma (either barotrauma versus physical passage of the scope itself). Multiple biopsies were taken of the mucosa for other underlying process. 3. No evidence of significant anemia was seen during this examination. COLONOSCOPY FINDINGS: Digital rectal exam: Normal findings were seen on external examination, although with palpation of the external sphincter, it was hypertonic. Colon findings: A large friable, circumferential, and near obstructing mass was seen in the rectum at approximately 10 cm past the anal verge. Attempts to traverse this mass with the colonoscope were unsuccessful. Multiple biopsies were taken of this rectal mass and placed in a specimen jar for evaluation. Submucosal tattoo was then placed on the distal end of the mass for future reference and to provide a guideline for surgeons for surgical resection. Otherwise, normal-appearing mucosa was seen distal to this lesion with small internal hemorrhoids seen on rectal retroflexion. IMPRESSION: A large friable, fungating, circumferential, and near obstructive mass seen in the rectum at 10 cm, status post biopsies and tattoo placement (most likely origin of the patient's anemia). RECOMMENDATIONS: 1. We would continue to trend H and H and transfuse as necessary to maintain an H and H of 7/21. 2. Continue to monitor clinically for signs of active GI bleeding or postoperative complications. 3. We would start the patient on a full liquid diet and advance as tolerated. 4. We will obtain staging imaging consisting of a CT of the abdomen, pelvis, and chest. 5. We would consult Medical Oncology for evaluation of this patient with a probable colonic malignancy. 6. We will consult General Surgery/Colorectal Surgeons for evaluation of this patient with a probable colonic malignancy that is near obstructive, but not impending obstruction. Job ID: [id number]
[2018-11-18 14:37] VITALS: BP 194/81; TEMP 97.8
--- NOTE | 2018-11-19 04:46 | DIS ---
DATE OF ADMISSION: 11/16/2018 DATE OF DISCHARGE: 11/18/2018 PRIMARY CARE PHYSICIAN: Cornelius Mcgraw MD CONSULTS DURING HOSPITAL STAY: Gastroenterology, Avel Weber MD CHIEF COMPLAINT: "I feel short of breath, as well as some red blood in my stools." ADMISSION DIAGNOSES: 1. Symptomatic anemia, hemoglobin 6.2. 2. Probable gastrointestinal bleed. DISCHARGE DIAGNOSES: 1. Symptomatic anemia, with hemoglobin of 6.2, in the context of newly-diagnosed probable colon cancer, with colonoscopy finding circumferential and near obstructive mass at the rectum at 10 cm. 2. Chronic obstructive pulmonary disease, chronic, on home oxygen, at baseline. 3. Essential hypertension. HOSPITAL COURSE: Ms. Sousa is a 68-year-old female with a history of end-stage COPD, on home oxygen, as well as chronic hypoxic respiratory failure and essential hypertension. She had a previous hospitalization 6 to 8 months ago, during which time, blood had been noted in her stools. EGD and colonoscopy have been recommended, however, she had declined, and did not follow further as her symptoms had resolved. She came to the emergency room on this occasion at the suggestion of a good friend who had noticed she has become more pale. Upon presentation, hemoglobin 6.4, received 2 units of packed red blood cells with hemoglobin 10.1 at the time of discharge, stable. Additionally, reported intermittent bright red blood occurring with bowel movements, more prominent over the last few weeks. She was seen and evaluated by Dr. Weber from GI services, underwent EGD and colonoscopy on 11/18/2018. Findings include high-grade esophageal stricture in distal esophagus, benign-appearing and dilated with passage of the scope, large linear mucosal rents at gastric fundus, biopsies taken, no evidence of significant upper GI bleeding noted. Colonoscopy findings include large friable, fungating, circumferential and near obstructive mass seen in the rectum at 10 cm, status post biopsies and tattoo placement. Oncology consultation, General Surgery consultation requested by Dr. Weber. Additionally, CT chest/abdomen/pelvis with oral and IV contrast for staging ordered. In speaking with the patient this afternoon, and conferencing with her once again with Dr. Weber a bit later, she strongly prefers to take care of these tests and consults as an outpatient. The importance of followup was reiterated to her, she demonstrates understanding. PHYSICAL EXAMINATION: At this time, LUNGS: Distant, fairly clear, which is her baseline. ABDOMEN: Soft and nontender. HEART: Regular rate and rhythm. Her discharge medications and plan are as follows. Medications: Pantoprazole 40 mg p.o. once daily. Remainder of her medications are the same as admission, which include, 1. ProAir HFA 90 mcg actuation q.4 hourly p.r.n. shortness of breath. 2. Budesonide 0.5 nebs twice daily. 3. Perforomist 2 mL neb q.12 hourly. 4. Guaifenesin 600 mg p.o. daily. 5. DuoNeb q.4 hourly p.r.n. shortness of breath. 6. Losartan 50 mg p.o. daily. 7. Mirtazapine 15 mg p.o. q.p.m. 8. Prednisone 5 mg p.o. once daily. 9. Tramadol 50 mg p.o. q.6 hourly p.r.n. pain. Diet: Full liquids, advancing to regular as tolerated. Followup CT chest/abdomen/pelvis for staging, the patient prefers [place] location, appreciate Dr. Weber's care coordination with scheduling CT. Follow up with Surgery as an outpatient. Follow up with Oncology as an outpatient. TIME SPENT: Total time spent on care/discharge/counseling/care coordination is 50 minutes. Job ID: [id number]
--- NOTE | 2018-11-19 09:52 | PQF ---
LYNNE ALAMO GABBY MCCORMACK [id number] CLINICAL DOCUMENTATION IMPROVEMENT CLARIFICATION FORM: ICD-10 Updated PLEASE DO AN ADDENDUM TO THE PROGRESS NOTE WITH ANY DOCUMENTATION UPDATES OR ADDITIONS AND CARRY THROUGH TO DC SUMMARY. THANK YOU. DATE: 11/19/2018 ATTN:DR. Charley ORTIZ Please exercise your independent, professional judgment in responding to the clarification form. Clinical indicators are provided on the bottom of this form for your review. Please check appropriate box(s): [ ] Acute blood loss anemia [ x] Acute blood loss anemia due to Neoplasm [ ] Other diagnosis [ ] Unable to determine In addition, please specify: Present on Admission (POA): [ ] Yes [ ] No [ ] Unable to determine For continuity of documentation, please document condition throughout progress notes and discharge summary. Thank You. CLINICAL INDICATORS - SIGNS / SYMPTOMS / LABS 11/16 HEMOGLOBIN 6.4 6.3 9.9 10.1 10.8 10.1 11/16 ED PHYSICIAN DX : GI BLEED, ANEMIA 11/16 TRANSFUSION LEUK -REDUCED RBC 11/17 TRANSFUSION LEUK -REDUCED RBC 11/17 H&P (MARELY) A/P: 1). SYMPTOMATIC ANEMIA AND THE PT HAS HEMOGLOBIN OF 6.2, HAS BEEN TRANSFUSED . 2). SHE HAS POSSIBLE GI BLEED AND THE PT SAW RED BLOOD IN THE STOOLS . WE WILL MONITOR HEMOGLOBIN. WE WILL TRANSFUSE NEEDED. WE WILL CONSULT GI. THE PT HAS BEEN STARTED TO PROTONIX. 11/18 EGD/COLON OPERATIVE REPORT: INTRODUCTION OF THE COLONOSCOPE WAS IMPEDED BY THE PRESENCE OF THE OF A LARGE RECTAL MASS. UPON TRANSFERRING THE ESOPHAGEAL STRICTURE WITH THE SCOPE, MILD DILATION WAS PERFORMED JUST WITH THIS PASSAGE AND IT DID EXHIBIT OOZING OF BLOOD. FURTHER DILATION WAS NOT PERFORMED RISK: RECTAL MASS GI BLEED, HEMATOCHEZIA ([facility]) TREATMENTS: BLOOD TRANSFUSIONS GI CONSULT EGD/COLOSCOPY THANK YOU ! STEVE (This form is maintained as a part of the permanent medical record) 2014 [employer]. All Rights Reserved [email or web address] [phone] [facility] MED[facility] CENTERDavid
== END 2018-11-18 17:14 | disposition home or self-care (01) | DRG 375 ==
LOC: ERS 19:05 → T4-B 20:20
PROVIDERS: ADMIT Hospitalist; ATTEND Hospitalist
PROC: 0DB98ZX Excision of Duodenum, Via Natural or Artificial Opening Endoscopic, Diagnostic (ICD-10-PCS; principal; 2018-11-16)
PROC: 0DB88ZX Excision of Small Intestine, Via Natural or Artificial Opening Endoscopic, Diagnostic (ICD-10-PCS; 2018-11-16)
PROC: 0DB78ZX Excision of Stomach, Pylorus, Via Natural or Artificial Opening Endoscopic, Diagnostic (ICD-10-PCS; 2018-11-16)
PROC: 0DBP8ZX Excision of Rectum, Via Natural or Artificial Opening Endoscopic, Diagnostic (ICD-10-PCS; 2018-11-16)
PROC: 0W3P8ZZ Control Bleeding in Gastrointestinal Tract, Via Natural or Artificial Opening Endoscopic (ICD-10-PCS; 2018-11-16)
PROC: 0D758ZZ Dilation of Esophagus, Via Natural or Artificial Opening Endoscopic (ICD-10-PCS; 2018-11-16)
DX: C19 Malignant neoplasm of rectosigmoid junction (principal); K92.2 Gastrointestinal hemorrhage, unspecified; J96.11 Chronic respiratory failure with hypoxia; D62 Acute posthemorrhagic anemia; J44.9 Chronic obstructive pulmonary disease, unspecified; K22.2 Esophageal obstruction; E87.6 Hypokalemia; K64.8 Other hemorrhoids; F41.9 Anxiety disorder, unspecified; F32.9 Major depressive disorder, single episode, unspecified; D63.0 Anemia in neoplastic disease; I10 Essential (primary) hypertension; Z99.81 Dependence on supplemental oxygen
CPT/HCPCS: 36415; 36430; 80048; 85014; 85018; 85025; 85060; 86850; 86900; 86901; 88305; 88312; 88361; 94640; 96374; 96376; C9113; J2001; J2704; J3490; J7512; J7620; J7626; P9016

== ENCOUNTER 2018-12-02 11:43 | Outpatient (CLI) | payer MEDICARE ==
[~2018-12-02 11:43] MED LIST: Iopamidol 370 76% 100 ML VIAL ONE
--- NOTE | 2018-12-02 14:04 | CT ---
EXAM: CT of the chest with contrast CT of the abdomen and pelvis with contrast HISTORY: Rectal cancer seen at colonoscopy COMPARISON: None TECHNIQUE: 1. Multiple contiguous axial images were obtained in a CT the chest with contrast. Coronal reformats were performed. 2. Multiple contiguous axial images were obtained and a CT of the abdomen and pelvis with contrast. C oronal reformats were performed. FINDINGS: CT CHEST: HEART: Normal in size without focal cardiac abnormality MEDIASTINUM: No hilar or mediastinal lymphadenopathy. LUNGS: There is a 10 mm left upper lobe pulmonary nodule. Emphysematous changes are seen throughout t he lungs. PLEURAL SPACE: No pneumothorax or pleural effusion. CHEST WALL SOFT TISSUES: Unremarkable CT ABDOMEN/PELVIS: ABDOMEN: LIVER: within normal limits. BILE DUCTS: Normal caliber. GALLBLADDER: No calcified gallstones. Normal caliber wall. PANCREAS: within normal limits. SPLEEN: within normal limits. ADRENALS: within normal limits. KIDNEYS: within normal limits. PELVIS: REPRODUCTIVE ORGANS: No pelvic masses. URETERS: within normal limits. BLADDER: within normal limits. PERITONEUM: No ascites or free air, no fluid collection. BOWEL: Normal caliber. There is an area of transition at the rectosigmoid junction which may represen t patient's colon cancer seen on colonoscopy. MESENTERY AND RETROPERITONEUM: No enlarged mesenteric or retroperitoneal lymph nodes. VESSELS: Atherosclerotic calcifications. ABDOMINAL WALL: within normal limits. OSSEOUS STRUCTURES: Degenerative changes in the spine. IMPRESSION: 1. Left upper lobe pulmonary nodule is nonspecific and could potentially represent a solitary lung me tastasis. A PET/CT is recommended to evaluate for hypermetabolic activity. 2. Transition point at the rectosigmoid junction may represent the patient's rectal cancer seen on co lonoscopy
== END 2018-12-02 11:44 | disposition home or self-care (01) ==
LOC: SCSCT 11:43
PROVIDERS: ATTEND Internal Medicine Gastroenterology
DX: C20 Malignant neoplasm of rectum (principal); C78.02 Secondary malignant neoplasm of left lung
CPT/HCPCS: 71260; 74177; Q9967

== ENCOUNTER 2018-12-15 12:15 | Outpatient (CLI) | payer MEDICARE ==
--- NOTE | 2018-12-15 15:38 | PET ---
PET CT: HISTORY: 68-year-old female with invasive colonic adenocarcinoma, moderately differentiated; involving the rec christian, on biopsy dated 11/18/18. Exam requested for initial staging. TECHNIQUE: PET scanning with CT attenuation correction was performed from the base of the brain through the prox imal thighs following the intravenous administration of 12.6 mCi [id number]. COMPARISON: None. CORRELATION: CT chest, abdomen, and pelvis of 12/02/18. FINDINGS: No opal hypermetabolism is seen in the neck, chest, axilla, abdomen, pelvis, or inguinal regions. There is a nonhypermetabolic 1.0 cm left upper lobe lung nodule with a SUV of 1.5. There is a 1.6 cm hypermetabolic lesion in the inferior tip of the right lobe of the liver with a SUV of 9. No hypermetabolic pulmonary nodules, adrenal, or skeletal lesions are seen. There is intense uptake in the rectosigmoid with a SUV of 20, likely corresponding to the primary mal ignancy. There is physiologic activity in the GI and tracts, heart, and the visualized portions of the brai n. There is increased FDG localization in the region of lipomatous hypertrophy of the interatrial septum caused by metabolic activity of brown adipose tissue. The CT scan used for attenuation correction demonstrates no evidence of pleural effusions or ascites. There is scoliosis of the thoracolumbar spine. IMPRESSION: Colorectal malignancy with solitary metastasis in the right lobe of the liver. POS: [facility]ON[facility]AS
--- NOTE | 2018-12-15 17:01 | MRI ---
EXAM: MRI of the pelvis without and with contrast HISTORY: Rectal cancer COMPARISON: None TECHNIQUE: Multiplanar multisequence MR images were obtained of the pelvis without and with IV contra st. FINDINGS: There is a mass in the anterior aspect of the rectum. This mass measures 3.8 cm in length. There is i ndentation of the serosa along the anterior aspect of this mass and it is felt that this mass is likely transmural involvement but not directly invade the perirectal fat. This mass is at least 7 cm from the anal verge. This mass does not involve the mesorectal fascia. No lymph nodes are identified in the fat within the mesorectal fascia or low in the pelvis. However, 3 oval appearing lymph nodes are seen superior to the mass just anterior to the sacrum measuring up to 11 mm in greatest dimension. No free fluid is seen in the pelvis. Osseous structures: No marrow signal abnormality IMPRESSION: Rectal cancer as above. This appears to be represent a T3a tumor with questionable N2 regional lymph node involvement.
== END 2018-12-15 12:16 | disposition home or self-care (01) ==
LOC: PET 12:15
PROVIDERS: ATTEND Internal Medicine Hematology & Oncology
DX: C20 Malignant neoplasm of rectum (principal); R91.1 Solitary pulmonary nodule; D50.0 Iron deficiency anemia secondary to blood loss (chronic); C78.7 Secondary malignant neoplasm of liver and intrahepatic bile duct
CPT/HCPCS: 72197; 78815; A9552

== ENCOUNTER 2019-04-06 11:27 | Outpatient (CLI) | payer MEDICARE ==
--- NOTE | 2019-04-06 14:02 | PET ---
Radionucleotide PET scan with CT attenuation correction HISTORY: Rectal cancer. Restaging. COMPARISON: 12/15/2018 FINDINGS: physiologic uptake of radiotracer throughout each urinary tract and the enteric system. Mus cular activity is evident about the orbits. The tiny noncalcified nodule at the lateral aspect of the left upper lung lobe remains nonhypermetabo lic maximum SUV 1.8 (previously 1.5). At the far inferior margin of the right liver lobe, hypermetabolic mass is again demonstrated with ma ximum SUV 6.0 (previously 9.0). Immediately superior, within the far posterior aspect of the right liver lobe, a lesion that was prev iously barely perceptible now shows a maximum SUV of 4.6 (previously 2.4). No abnormal uptake is now evident at the level of the rectum. Presumed surgical removal. IMPRESSION: New hypermetabolic mass within the right liver lobe, separate from but nearby the previou s mass that has decreased in hypermetabolic activity slightly. Left upper lobe lung nodule remains nonhypermetabolic.
== END 2019-04-06 11:28 | disposition home or self-care (01) ==
LOC: PET 11:27
PROVIDERS: ATTEND Internal Medicine Hematology & Oncology
DX: C20 Malignant neoplasm of rectum (principal); R91.1 Solitary pulmonary nodule; R16.0 Hepatomegaly, not elsewhere classified
CPT/HCPCS: 78815; A9552

== ENCOUNTER 2019-07-30 07:28 | Inpatient (IN) | payer MEDICARE, OTHER ==
[2019-07-30 08:07] LABS: Hemoglobin 13.1 g/dL (12.0-16.0); Mean Corpuscular HGB CONC 31.2 g/dL (32.0-36.0); Mean Corpuscular Hemoglobin 32.9 pg (27.0-31.0); Mean Platelet Volume 7.1 fL (7.4-10.4); Platelet Count 376 thou/uL (130-400); RBC Distribution Width 12.4 % (11.5-14.5); White Blood Cell (WBC) Count 18.9 thou/uL (4.8-10.8)
[2019-07-30 08:29] LABS: ALT (SGPT) 16 U/L (8-55); AST (SGOT) 21 U/L (5-34); Albumin 4.1 g/dL (3.4-4.8); Alkaline Phosphatase 142 U/L (40-110); Anion Gap 15 mmol/L (10-20); BUN (Urea Nitrogen) 8 mg/dL (9.8-20.1); Bilirubin, Total 0.5 mg/dL (0.2-1.2); CK (CPK) 96 U/L (29-168); Calc. Creatinine Clearance 0 mL/min (70-130); Calcium 9.4 mg/dL (7.8-10.44); Carbon Dioxide 28 mmol/L (23-31); Chloride 102 mmol/L (98-107); Estimated GFR-MDRD 73; Globulin 2.9 g/dL (2.4-3.5); Glucose 159 mg/dL (80-115); Sodium 141 mmol/L (136-145)
[2019-07-30 08:33] LABS: #Basophils 0.1 thou/uL (0.0-0.2); #Eosinphils 1.3 thou/uL (0.0-0.7); #Lymphocytes 1.3 thou/uL (1.20-3.40); #Monocytes 1.4 thou/uL (0.11-0.59); #Neutrophils 14.9 thou/uL (1.40-6.50); %Basophils 0.4 % (0.0-1.0); %Eosinophils 6.8 % (0.0-10.0); %Lymphocytes 6.7 % (21.0-51.0); %Monocytes 7.4 % (0.0-10.0); %Neutrophils 78.8 % (42.0-75.0); Band 17 % (5-11); Eosinophils 6 % (0-10); Lymphocytes 9 % (21-51); MDiff Complete? YES; Monocytes 6 % (0-10); Neutrophil 62 % (42-75); Platelet Morphology Comment Appears Adequate; RBC Morphology Normal
[2019-07-30] MEDS ORDERED: cefTRIAXone\\ROCEPHIN 2 GM VIAL ONE (09:00)
[2019-07-30] MEDS ORDERED: Azithromycin 500 MG VIAL ONE (09:00)
--- NOTE | 2019-07-30 09:21 | RAD ---
CHEST 1 VIEW: INDICATION: Shortness of breath. COMPARISON: CT of the chest, abdomen, and pelvis dated 12/02/2018 chest radiograph dated 04/30/2018. FINDINGS: There is slight increased linear density involving the left lower lobe obscuring the medial left rehana diaphragm possibly reflective of an area of subsegmental volume loss or pneumonia. COPD change, thor acolumbar scoliosis, and mild cardiomegaly are stable-appearing. Upper abdomen demonstrates an overl jules surgical clip. There is diffuse osteopenia. IMPRESSION: Increasing retrocardiac airspace opacity may reflect atelectasis or pneumonia. Recommend a 2-view est radiograph for further characterization. POS: [facility]
[2019-07-30] MEDS ORDERED: Succinylcholine Chloride 20 MG/ML 10 ml SYRINGE FS ONE (09:27)
[2019-07-30] MEDS ORDERED: PROPOFOL 200 MG/20 ML VIAL ONE (09:27)
[2019-07-30 09:43] LABS: Actual Bicarbonate (HCO3a) 23.8 mEq/L (22-28); Analyzer IN Cardio ER; Base Excess (BEa) -2.1 mEq/L (-2.0 to +3.0); Carboxyhemoglobin (COHb) 0.3 gm% (0.0-3.0); Hemoglobin (Hb) 13.4 g/dL (12.0-16.0); O2 Tension (PaO2), arterial 112.6 mmHg (> 80.0); Potassium - ABG Lab 3.99 mmol/L (3.70-5.30); pH, Arterial 7.34 (7.35-7.45)
[2019-07-30 09:44] LABS: Puncture Site LRA
[2019-07-30] MEDS ORDERED: Ondansetron PF 4 MG/2 ML Vial IVP PRN (10:08)
[2019-07-30] MEDS ORDERED: Acetaminophen 325 MG TAB PO PRN (10:08)
[2019-07-30] MEDS ORDERED: Bisacodyl 10 MG SUPP PR PRN (10:08)
[2019-07-30] MEDS ORDERED: Senokot S 8.6-50 MG TAB PO PRN (10:08)
[2019-07-30] MEDS ORDERED: Acetaminophen 650 MG Suppository PR PRN (10:08)
--- NOTE | 2019-07-30 11:04 | HP ---
REASON FOR ADMISSION: Acute respiratory failure, COPD exacerbation. HISTORY OF PRESENTING ILLNESS: The patient gives history of having progressively getting worse with shortness of breath from last 2 days. This got really worse this morning and was having difficulty breathing even with sitting up and hunched over. The family called EMS and the patient was placed on CPAP en route. She felt better initially. On arrival in ER, patient was placed on BiPAP and she is having trouble again breathing through it. There are no complaints of fever. No exposure to coronavirus. She states she stopped all her chemo and immunotherapy in May. She thinks her colon cancer is in remission. No complaints of altered phlegm but has clear expectoration. PAST MEDICAL AND SURGICAL HISTORY: History of COPD, which is steroid and oxygen dependent, history of colon cancer, chronic anemia, scoliosis, diastolic dysfunction. CURRENT MEDICATIONS: The patient is on 1. DuoNeb q.4 hourly. 2. Protonix 40 mg daily. 3. Formoterol inhaler twice daily. 4. Budesonide nebulizer twice daily. 5. Losartan 50 mg daily. 6. Mirtazapine 15 mg p.o. q.p.m. 7. Prednisone 5 mg daily. 8. Ultram p.r.n. for pain. ALLERGIES: ALLERGIC TO SHELLFISH AND IODINE. PERSONAL HISTORY: Quit smoking long back. Does not abuse alcohol or drugs. She lives with her , says she ambulates by herself. FAMILY HISTORY: Positive for colon cancer. CODE STATUS: Full. I have discussed this with her in the room. Power of disability attorney is her . REVIEW OF SYSTEMS: CONSTITUTIONAL: Negative for weight loss or gain, ability to conduct usual activities. SKIN: Negative for rash, itching. EYES: Negative for double vision, pain. ENT/MOUTH: Negative for nose bleeding, neck stiffness, pain, tenderness. CARDIOVASCULAR: Negative for palpitations, dyspnea on exertion, orthopnea. RESPIRATORY: Negative for shortness of breath, wheezing, cough, hemoptysis, fever or night sweats. GASTROINTESTINAL: Negative for poor appetite, abdominal pain, heartburn, nausea , vomiting, constipation, or diarrhea. GENITOURINARY: Negative for urgency, frequency, dysuria, nocturia. MUSCULOSKELETAL: Negative for pain, swelling. NEUROLOGIC/PSYCHIATRIC: Negative for anxiety, depression. ALLERGY/IMMUNOLOGIC: Negative for skin rash, bleeding tendency. PHYSICAL EXAMINATION: GENERAL: The patient is a 69-year-old female, who is currently in respiratory distress. VITAL SIGNS: Blood pressure 160/104, pulse is 120 per minute, respiratory rate 30 per minute, saturating 96% on BiPAP, temperature is 98 degrees oral. NECK: Supple. No elevated JVD. HEENT: Eyes; extraocular muscles intact. Pupils reacting to light. Oral cavity, mucous membranes are dry. No exudates or congestion. CARDIOVASCULAR: S1, S2 heard. Tachycardic. RESPIRATORY: Air entry 1+ bilateral, wheezes plus bilateral. ABDOMEN: Soft. Bowel sounds heard. There is mild distention of the abdomen likely she is gulping air with BiPAP. EXTREMITIES: No peripheral edema or calf tenderness. VASCULAR: Peripheral pulses 1+ bilateral. No ischemic ulcerations or gangrene. CENTRAL NERVOUS SYSTEM: No gross focal deficits noted. The patient is oriented well but is getting tired. PSYCHIATRIC: No obvious hallucinations or delusions. LABORATORY DATA: EKG done shows sinus tach at 112 beats per minute. There is Q-wave seen in anteroseptal leads. BUN 8, creatinine 0.7, serum bicarb 28. Electrolytes stable. Serum glucose 159. Liver enzymes; AST, ALT within normal limits. Troponin I negative. Albumin 4.1. Chest x-ray done shows chronic COPD changes, thoracolumbar scoliosis seen. Blood gas on BiPAP shows a pH 7.34, pCO2 of 45, PO2 of 112. White count of 18, H and H 13 and 42, platelet count 376, MCV 105 with 78% neutrophils. CLINICAL IMPRESSION AND PLAN: The patient will be admitted to ICU for acute respiratory failure with hypoxia and hypercarbia, acute on chronic COPD exacerbation. The patient has severe chronic obstructive pulmonary disease which is oxygen and steroid dependent at home. She has also finished chemotherapy for colon cancer in May. A PET scan done in May shows a new lesion in addition to the prior one in the liver and it is unclear if she is still in remission. She will be on Solu-Medrol 40 mg IV q.6 hourly, empiric Levaquin, DuoNeb q.6 hourly. She will likely be shortly intubated as her work of breathing is increasing. We will also place her on Protonix and continue Remeron as before. I have spoken to Dr. Holly for pulmonology consultation. I have also discussed with her , Mr. Nuñez and I have given complete updates to him including the possibility of her getting intubated shortly. COVID-19 test has been done in the ER and we will follow up with the results. She has not been exposed to anyone with COVID and her elevated white count likely is from steroids. We will follow up on the results. Job ID: [id number] MTDD
[2019-07-30] MEDS ORDERED: methylPREDNISolone Sod Succ 40 MG VIAL IVP SCH (12:00)
[2019-07-30] MEDS: Sodium Chloride 0.9% 1,000 ML IV SCH ×2 (12:30→23:12)
[2019-07-30] MEDS ORDERED: Lorazepam 2 MG/ML VIAL ONE ×2 (12:37→12:56)
[2019-07-30 12:38] LABS: Actual Bicarbonate (HCO3a) 24.3 mEq/L (22-28); Base Excess (BEa) -3.2 mEq/L (-2.0 to +3.0); CO2 Tension 53.9 mmHg (35.0-45.0); Calcium, Ionized 1.16 mmol/L (1.12-1.30); Carboxyhemoglobin (COHb) 0.8 gm% (0.0-3.0); O2 Tension (PaO2), arterial 81.1 mmHg (> 80.0); Potassium - ABG Lab 4.19 mmol/L (3.70-5.30); pH, Arterial 7.27 (7.35-7.45)
[2019-07-30 12:40] LABS: ALV-art Gradient 65.425 (0-20); Puncture Site RRA
[2019-07-30] MEDS ORDERED: Propofol 1,000 MG/100 ML VIAL IV ONE (12:40)
[2019-07-30] MEDS: methylPREDNISolone Sod Succ 40 MG VIAL IVP SCH ×3 (12:42→23:22)
--- NOTE | 2019-07-30 12:52 | RAD ---
Exam: Chest one view HISTORY:Endotracheal tube placement Comparison: 07/30/2019 at 7:25 AM FINDINGS: Lines and tubes: Interval placement of a endotracheal tube. Distal tip is 1.9 cm above the erika. Nasogastric tube extends beyond the diaphragm. Distal tip is not seen Cardiac silhouette: Normal Aorta: Unremarkable Pulmonary vessels: Normal Costophrenic angles: Clear LUNGS: Minimal infiltrate in the medial right lung base with partial obscuration the right hemidiaphr agm. Pneumothorax: None Osseous abnormalities: Stable scoliotic curvature of the thoracic and lumbar spine IMPRESSION: Interval placement of endotracheal and nasogastric tubes as above. Otherwise, no significant change.
[2019-07-30] MEDS ORDERED: Fentanyl BOLUS 250 ML IVPB PRN (13:02)
[2019-07-30] MEDS ORDERED: fentaNYL Citrate/PF 2,000 MCG in Sodium Chloride 0.9% 60 ML IV SCH (13:02)
[2019-07-30] MEDS ORDERED: Propofol BOLUS 1,000 MG/100 ML VIAL IV PRN (13:02)
[2019-07-30] MEDS ORDERED: DISCONTINUE PREVIOUS NARCOTIC PAIN MEDICATIONS AND BENZODIAZEPINES FS SCH (13:02)
[2019-07-30] MEDS ORDERED: Vecuronium Bromide 20 MG VIAL IV PRN (13:09)
[2019-07-30] MEDS ORDERED: Vecuronium 10 MG VIAL ONE (13:11)
[2019-07-30] MEDS: Budesonide 0.5 MG/2 ML NEB NEB SCH ×2 (14:42→18:58)
[2019-07-30] MEDS: Propofol 1,000 MG/100 ML VIAL IV PRN ×2 (15:03→22:46)
[2019-07-30] MEDS: Lorazepam 2 MG/ML VIAL SLOW IVP PRN ×2 (15:03→17:30)
[2019-07-30] MEDS: Vecuronium 10 MG VIAL IV PRN ×3 (15:04→22:46)
[2019-07-30 18:23] LABS: SARS-CoV-2 MS2 Positive; SARS-CoV-2 N Gene Negative; SARS-CoV-2 S Gene Negative; SARS-CoV-2 orf1ab Negative
--- NOTE | 2019-07-30 20:11 | CON ---
DATE OF CONSULTATION: 07/30/2019 HISTORY OF PRESENT ILLNESS: Ms. Sousa is a 69-year-old female, with very severe chronic obstructive pulmonary disease. Pulmonary function tests done in 2014 showed that she had an FEV1 of 510 mL, which is 25% predicted. She did have 22% improvement in her FEV1 surprisingly with bronchodilators. She had been followed by Dr. Adan and seen multiple times in the hospital. She presented today to the emergency department with over one week of shortness of breath, similar to past exacerbations. She denied being around anyone who had screened positive for COVID. She denied having a febrile illness. She has had no nausea, vomiting, or hemoptysis. PAST MEDICAL HISTORY: Remarkable for: 1. Blood loss anemia, hospitalized with endoscopy in last fall. 2. Chronic hypoxemic respiratory failure, on home oxygen. 3. History of hypertension. 4. History of rectal colon cancer diagnosed on biopsy in December 2018. PET imaging in March of this year showed a right liver lobe hypermetabolic mass. Left lung nodule that was old and non-hypermetabolic. There are no notes from the oncologist in the medical record system. She is unable to give a history regarding this. Past medical history is otherwise unremarkable. SOCIAL HISTORY: She quit smoking. She does not drink. REVIEW OF SYSTEMS: Negative. ALLERGIES: SHE REPORTS AN IODINE ALLERGY. FAMILY HISTORY: Negative for lung disease in early age. Positive for colon cancer. PHYSICAL EXAMINATION: She arrived. She was able to speak in short sentences. She had BiPAP on, but she would not keep the mask on and kept pulling at it. Apparently, the emergency department decided to make her rule out COVID patients came up with BiPAP on with a bag over her face and the nurses were in protective gowns. OBJECTIVE: VITAL SIGNS: Heart rate is right at over 100. She was mildly hypertensive. When she arrived, she was tachypneic. HEAD AND NECK: Remarkable just for cachexia. LUNGS: Remarkable for distant breath sounds. HEART: Regular rhythm. ABDOMEN: Soft. EXTREMITIES: Without asymmetry. She subsequently was intubated by Anesthesia. Postintubation blood gas shows a pH of 7.27, CO2 of 53, and PO2 of 81. Her exhale time is almost 6 seconds, but with nebulizer treatments throughout the day, her exhale time has been improving. Chest radiograph showed no infiltrates. Scoliosis. Tortuous aorta. IMPRESSION: Respiratory failure associated with chronic obstructive pulmonary disease exacerbation. I doubt she has a COVID-19 infection. Hopefully, this will be a 1- to 2-day mechanical ventilation. CRITICAL CARE TIME: Thirty minutes. Job ID: [id number] MTDD
[2019-07-30] MEDS: Mirtazapine 15 MG TAB PO SCH (20:21)
[2019-07-31] MEDS: Vecuronium 10 MG VIAL IV PRN ×7 (01:56→20:17)
[2019-07-31 04:10] LABS: #Eosinphils 0.1 thou/uL (0.0-0.7); #Lymphocytes 0.5 thou/uL (1.20-3.40); #Monocytes 0.6 thou/uL (0.11-0.59); #Neutrophils 13.9 thou/uL (1.40-6.50); %Eosinophils 0.8 % (0.0-10.0); %Lymphocytes 3.1 % (21.0-51.0); %Neutrophils 92.1 % (42.0-75.0); Hemoglobin 12.5 g/dL (12.0-16.0); Mean Corpuscular Hemoglobin 33.9 pg (27.0-31.0); Mean Platelet Volume 7.3 fL (7.4-10.4); Platelet Count 230 thou/uL (130-400); RBC Distribution Width 12.3 % (11.5-14.5); White Blood Cell (WBC) Count 15.1 thou/uL (4.8-10.8)
[2019-07-31 04:20] LABS: Anion Gap 17 mmol/L (10-20); BUN (Urea Nitrogen) 12 mg/dL (9.8-20.1); Calc. Creatinine Clearance 61 mL/min (70-130); Calcium 8.5 mg/dL (7.8-10.44); Carbon Dioxide 20 mmol/L (23-31); Chloride 108 mmol/L (98-107); Estimated GFR-MDRD Greater than 90; Glucose 150 mg/dL (80-115); Potassium 5.6 mmol/L (3.5-5.1); Sodium 139 mmol/L (136-145)
[2019-07-31] MEDS: Sodium Chloride 0.9% 1,000 ML IV SCH ×2 (05:41→20:17)
[2019-07-31] MEDS: methylPREDNISolone Sod Succ 40 MG VIAL IVP SCH ×3 (05:41→17:49)
[2019-07-31] MEDS: Propofol 1,000 MG/100 ML VIAL IV PRN ×3 (05:41→18:40)
[2019-07-31 06:41] LABS: Actual Bicarbonate (HCO3a) 24.8 mEq/L (22-28); Base Excess (BEa) 0.2 mEq/L (-2.0 to +3.0); CO2 Tension 39.8 mmHg (35.0-45.0); Calcium, Ionized 1.11 mmol/L (1.12-1.30); Carboxyhemoglobin (COHb) 0.7 gm% (0.0-3.0); O2 Tension (PaO2), arterial 68.9 mmHg (> 80.0); Potassium - ABG Lab 3.95 mmol/L (3.70-5.30); Puncture Site RBRACH; pH, Arterial 7.41 (7.35-7.45)
[2019-07-31] MEDS: Budesonide 0.5 MG/2 ML NEB NEB SCH ×2 (06:43→18:25)
[2019-07-31] MEDS: Enoxaparin Sodium 30 MG/0.3 ML SYRINGE SC SCH (08:27)
[2019-07-31] MEDS: Lorazepam 2 MG/ML VIAL SLOW IVP PRN ×6 (09:56→20:17)
--- NOTE | 2019-07-31 12:24 | PRG ---
DATE OF SERVICE: 07/31/2019 SUBJECTIVE: Lars is still over the prolonged expiratory phase. She will require paralytics today intermittently to successfully ventilate her. OBJECTIVE: VITAL SIGNS: Heart rate 107, respiratory rate 12, oximetry is 98, blood pressure 130/78. LUNGS: Remarkable for equal breath sounds, distant and prolonged expiratory phase. HEART: Regular rhythm. ABDOMEN: Soft. EXTREMITIES: Without edema. LABORATORY DATA: White count 15.1, hemoglobin 12.5, platelets 230. Sodium 139, potassium 5.6, chloride 108, bicarb 20, BUN 12 and creatinine 0.65. IMPRESSION: Respiratory failure secondary to chronic obstructive pulmonary disease exacerbation with near end-stage chronic obstructive pulmonary disease and an FEV1 several years ago of around 500 mL. We will continue nebulized treatments, steroids, mechanical ventilation, and antimicrobial therapy. Critical care time 30 min. Job ID: [id number] MTDD
[2019-07-31] MEDS ORDERED: Sodium Bicarbonate Tab 325 MG TAB PER TUBE PRN (12:48)
[2019-07-31] MEDS ORDERED: Pancrelipase DR 12000 1 CAP FS PRN (12:48)
--- NOTE | 2019-07-31 14:30 | PDOC.HOSPP ---
- Subjective Encounter Date: 07/31/19 Encounter Time: 13:00 non-verbal Subjective: Patient seen and examined for resp failure. On Vent. No overnight events - Objective Vital Signs & Weight: Vital Signs (12 hours) Pulse Resp Pulse Ox 07/31/19 11:58 12 07/31/19 11:01 107 H 12 98 07/31/19 10:00 12 07/31/19 08:00 15 07/31/19 07:43 15 100 07/31/19 06:44 86 07/31/19 06:42 87 12 100 07/31/19 06:00 12 07/31/19 04:00 12 07/31/19 03:50 91 Weight Admit Weight 102 lb 1.12 oz Weight 102 lb 1.12 oz Most Recent Monitor Data Heart Rate from ECG 101 NIBP 119/67 NIBP BP-Mean 84 Respiration from ECG 24 SpO2 99 I&O: 07/30/19 07/31/19 08/01/19 06:59 06:59 06:59 Intake Total 1181.2 108 Output Total 690 220 Balance 491.2 -112 Result Diagrams: 07/31/19 03:50 07/31/19 03:50 Radiology Reviewed by me: Yes (CXR - reviewed) EKG Reviewed by me: Yes (Tele SR) Hospitalist ROS - Review of Systems ROS unobtainable: due to mental status - Medication Medications: Active Medications Generic Name Dose Route Start Last Admin Trade Name Freq PRN Reason Stop Dose Admin Albuterol/Ipratropium 3 ml 07/30/19 18:30 07/31/19 11:01 Duoneb NEB 3 ml [id number] FAMILIA Administration Budesonide 0.5 mg 07/30/19 10:15 07/31/19 06:43 Pulmicort Neb Solution NEB 0.5 mg Q12H FAMILIA Administration Enoxaparin Sodium 30 mg 07/31/19 09:00 07/31/19 08:27 Lovenox SC 30 mg 0900 FAMILIA Administration Levofloxacin 500 mg/ Device 100 mls @ 100 mls/hr 07/30/19 11:00 07/31/19 10: 11 IVPB 100 mls 1100 FAMILIA Administration Sodium Chloride 1,000 mls @ 50 mls/hr 07/30/19 10:15 07/31/19 05:41 Normal Saline 0.9% IV 1,000 mls .Q20H FAMILIA Administration Lorazepam 2 mg 07/30/19 13:02 07/31/19 13:24 Ativan SLOW IVP 08/29/19 13:02 2 mg Q1H PRN Administration Breakthrough agitation Methylprednisolone Sodium Succinate 40 mg 07/30/19 12:00 07/31/19 11:04 Solu-Medrol IVP 40 mg Q6HR FAMILIA Administration Mirtazapine 15 mg 07/30/19 21:00 07/30/19 20:21 Remeron PO 15 mg QPM FAMILIA Administration Propofol 1,000 mg 07/30/19 13:02 07/31/19 12:23 Diprivan IV 08/29/19 13:02 1,000 mg INF PRN Administration TO ACHIEVE GOAL RASS Protocol Vecuronium [place] 10 mg 07/30/19 13:30 07/31/19 13:24 Norcuron IV 10 mg Q1H PRN Administration Agitation - Exam General Appearance: NAD General - other findings: on Vent Heart: RRR, no gallops, no rubs, normal peripheral pulses Respiratory: no rales, normal chest expansion, rhonchi, wheezes Gastrointestinal: soft, non-distended, no guarding, no rigidity Extremities: no cyanosis, no clubbing, no edema Neurological - other findings: Neuro/Psych - cannot assess due to sedation Hosp A/P - Plan DVT proph w/SCDs Acute on chronic hypoxic-hypercapnic resp failure/COPD exacerbation HTN Hyperkalemia Leucocytosis due to #1 PLAN: Cont IV Steroids/Levaquin On Mech Ventilation COVID negative AM labs Start tube feed Cont other meds
[2019-07-31] MEDS: Mirtazapine 15 MG TAB PO SCH (20:17)
[2019-08-01] MEDS: methylPREDNISolone Sod Succ 40 MG VIAL IVP SCH ×5 (00:32→23:51)
[2019-08-01] MEDS: Propofol 1,000 MG/100 ML VIAL IV PRN ×3 (00:33→17:26)
[2019-08-01 04:22] LABS: #Eosinphils 0.1 thou/uL (0.0-0.7); #Lymphocytes 0.5 thou/uL (1.20-3.40); #Monocytes 0.7 thou/uL (0.11-0.59); #Neutrophils 14.2 thou/uL (1.40-6.50); %Eosinophils 0.5 % (0.0-10.0); %Lymphocytes 2.9 % (21.0-51.0); %Monocytes 4.6 % (0.0-10.0); Mean Corpuscular HGB CONC 33.8 g/dL (32.0-36.0); Mean Corpuscular Hemoglobin 35.1 pg (27.0-31.0); Mean Platelet Volume 8.6 fL (7.4-10.4); Platelet Count 172 thou/uL (130-400); RBC Distribution Width 12.2 % (11.5-14.5); Red Blood Cell (RBC) Count 3.43 mill/uL (4.20-5.40); White Blood Cell (WBC) Count 15.4 thou/uL (4.8-10.8)
[2019-08-01 04:37] LABS: Anion Gap 15 mmol/L (10-20); BUN (Urea Nitrogen) 18 mg/dL (9.8-20.1); Calc. Creatinine Clearance 59 mL/min (70-130); Calcium 7.6 mg/dL (7.8-10.44); Carbon Dioxide 18 mmol/L (23-31); Chloride 106 mmol/L (98-107); Estimated GFR-MDRD 88; Glucose 168 mg/dL (80-115); Magnesium 2.1 mg/dL (1.6-2.6); Potassium 3.9 mmol/L (3.5-5.1); Sodium 135 mmol/L (136-145)
[2019-08-01] MEDS: Vecuronium 10 MG VIAL IV PRN ×4 (06:28→21:01)
[2019-08-01] MEDS: Lorazepam 2 MG/ML VIAL SLOW IVP PRN ×3 (06:28→21:01)
[2019-08-01 07:28] LABS: Actual Bicarbonate (HCO3a) 26.3 mEq/L (22-28); Base Excess (BEa) 0.3 mEq/L (-2.0 to +3.0); CO2 Tension 47.9 mmHg (35.0-45.0); Calcium, Ionized 1.16 mmol/L (1.12-1.30); Hemoglobin (Hb) 12.4 g/dL (12.0-16.0); O2 Tension (PaO2), arterial 64.6 mmHg (> 80.0); Potassium - ABG Lab 3.92 mmol/L (3.70-5.30); pH, Arterial 7.36 (7.35-7.45)
[2019-08-01] MEDS: Budesonide 0.5 MG/2 ML NEB NEB SCH ×2 (07:35→18:24)
[2019-08-01] MEDS: Enoxaparin Sodium 30 MG/0.3 ML SYRINGE SC SCH (09:00)
[2019-08-01] MEDS: Pantoprazole 40 MG VIAL IVP SCH (09:00)
--- NOTE | 2019-08-01 11:32 | PDOC.HOSPP ---
- Subjective Encounter Date: 08/01/19 Encounter Time: 10:45 non-verbal Subjective: Patient seen and examined for resp failure. On Vent. No overnight events - Objective Vital Signs & Weight: Vital Signs (12 hours) Pulse Resp BP Pulse Ox 08/01/19 10:35 80 08/01/19 10:34 79 12 98 08/01/19 07:50 94 L 08/01/19 07:35 104 H 12 95 08/01/19 07:21 105 H 08/01/19 06:00 28 H 08/01/19 04:00 30 H 08/01/19 03:35 90 105/61 08/01/19 03:30 98 08/01/19 02:00 18 08/01/19 00:00 14 Weight Admit Weight 102 lb 1.12 oz Weight 98 lb 15.801 oz Most Recent Monitor Data Heart Rate from ECG 82 NIBP 114/64 NIBP BP-Mean 80 Respiration from ECG 17 SpO2 98 I&O: 07/31/19 08/01/19 08/02/19 06:59 06:59 06:59 Intake Total 1181.2 2101 945 Output Total 690 653 88 Balance 491.2 7008 857 Result Diagrams: 08/01/19 03:14 08/01/19 06:20 EKG Reviewed by me: Yes (Tele SR) Hospitalist ROS - Review of Systems ROS unobtainable: due to mental status - Medication Medications: Active Medications Generic Name Dose Route Start Last Admin Trade Name Freq PRN Reason Stop Dose Admin Albuterol/Ipratropium 3 ml 07/30/19 18:30 08/01/19 10:34 Duoneb NEB 3 ml [id number] FAMILIA Administration Budesonide 0.5 mg 07/30/19 10:15 08/01/19 07:35 Pulmicort Neb Solution NEB 0.5 mg Q12H FAMILIA Administration Enoxaparin Sodium 30 mg 07/31/19 09:00 08/01/19 09:00 Lovenox SC 30 mg 0900 FAMILIA Administration Levofloxacin 500 mg/ Device 100 mls @ 100 mls/hr 07/30/19 11:00 07/31/19 10: 11 IVPB 100 mls 1100 FAMILIA Administration Sodium Chloride 1,000 mls @ 50 mls/hr 07/30/19 10:15 07/31/19 20:17 Normal Saline 0.9% IV 1,000 mls .Q20H FAMILIA Administration Lorazepam 2 mg 07/30/19 13:02 08/01/19 06:28 Ativan SLOW IVP 08/29/19 13:02 2 mg Q1H PRN Administration Breakthrough agitation Methylprednisolone Sodium Succinate 40 mg 07/30/19 12:00 08/01/19 06:02 Solu-Medrol IVP 40 mg Q6HR FAMILIA Administration Mirtazapine 15 mg 07/30/19 21:00 07/31/19 20:17 Remeron PO 15 mg QPM FAMILIA Administration Pantoprazole Sodium 40 mg 08/01/19 09:00 08/01/19 09:00 Protonix IVP 40 mg DAILY FAMILIA Administration Propofol 1,000 mg 07/30/19 13:02 08/01/19 09:00 Diprivan IV 08/29/19 13:02 1,000 mg INF PRN Administration TO ACHIEVE GOAL RASS Protocol Vecuronium [place] 10 mg 07/30/19 13:30 08/01/19 06:28 Norcuron IV 10 mg Q1H PRN Administration Agitation - Exam General Appearance: NAD Neck: supple, no JVD Heart: RRR, no gallops Respiratory: rhonchi, wheezes Gastrointestinal: non-distended, no guarding, no rigidity Extremities: no cyanosis, no clubbing, no edema Hosp A/P - Plan DVT proph w/lovenox, DVT proph w/SCDs, GI proph Acute on chronic hypoxic-hypercapnic resp failure/COPD exacerbation HTN Hyperkalemia Leucocytosis due to #1 Hyponatremia PLAN: [facility] Cont tube feed Cont other meds COVID ruled out AM labs
[2019-08-01 14:52] LABS: Puncture Site RBRAC
[2019-08-01 14:53] LABS: ALV-art Gradient 89.425 (0-20)
[2019-08-01] MEDS ORDERED: hydrALAZINE 20 MG/ML VIAL SLOW IVP PRN (17:05)
[2019-08-01] MEDS ORDERED: hydrALAZINE 25 MG TAB PER TUBE SCH (17:15)
[2019-08-01] MEDS: Sodium Chloride 0.9% 1,000 ML IV SCH (17:31)
--- NOTE | 2019-08-01 19:28 | PRG ---
DATE OF SERVICE: 08/01/2019 SUBJECTIVE: Caterina Sousa had a reasonably good night, but developed hypoxemia this afternoon. This is simply secondary to mucus plugging. She still has a prolonged expiratory phase. OBJECTIVE: VITAL SIGNS: Blood pressure is 179/104, heart rate is 107, respiratory rates in the high 20s. LUNGS: Remarkable for distant breath sounds. HEART: Regular rhythm. ABDOMEN: Soft. EXTREMITIES: Without edema. LABORATORY DATA: White count 15.4, hemoglobin 12.0, platelets 172. Sodium 135, potassium 3.9, chloride 106, bicarb 18, BUN 18, creatinine 0.67. IMPRESSION: Respiratory failure, [id number], secondary to chronic obstructive pulmonary disease exacerbation. Her expiratory phase is prolonged, but not as long as it was when she was intubated 2 days ago. She will continue with nebulizer treatments, sedation, paralytics as needed. Empiric antibiotics, steroids. We need to start nutrition on her. Prognosis is guarded. Critical care time was 38 min. Job ID: [id number] MTDD
[2019-08-01] MEDS: Mirtazapine 15 MG TAB PO SCH (21:02)
[2019-08-01] MEDS: hydrALAZINE 25 MG TAB PER TUBE SCH (21:03)
[2019-08-01] MEDS: Morphine 2 MG/ML SYRINGE SLOW IVP PRN (23:50)
[2019-08-02] MEDS: Lorazepam 2 MG/ML VIAL SLOW IVP PRN ×6 (00:37→23:28)
[2019-08-02] MEDS: Vecuronium 10 MG VIAL IV PRN ×2 (00:37→02:37)
[2019-08-02] MEDS: Propofol 1,000 MG/100 ML VIAL IV PRN ×2 (02:27→19:34)
[2019-08-02] MEDS: Morphine 2 MG/ML SYRINGE SLOW IVP PRN (02:38)
[2019-08-02 04:56] LABS: #Eosinphils 0.1 thou/uL (0.0-0.7); #Lymphocytes 0.2 thou/uL (1.20-3.40); #Monocytes 0.5 thou/uL (0.11-0.59); #Neutrophils 11.5 thou/uL (1.40-6.50); %Eosinophils 0.6 % (0.0-10.0); %Lymphocytes 1.8 % (21.0-51.0); %Monocytes 4.4 % (0.0-10.0); %Neutrophils 93.2 % (42.0-75.0); Hemoglobin 11.1 g/dL (12.0-16.0); Mean Corpuscular HGB CONC 33.2 g/dL (32.0-36.0); Mean Corpuscular Hemoglobin 34.9 pg (27.0-31.0); Mean Platelet Volume 7.9 fL (7.4-10.4); Platelet Count 200 thou/uL (130-400); RBC Distribution Width 12.3 % (11.5-14.5); Red Blood Cell (RBC) Count 3.17 mill/uL (4.20-5.40); White Blood Cell (WBC) Count 12.4 thou/uL (4.8-10.8)
[2019-08-02 05:24] LABS: Anion Gap 9 mmol/L (10-20); BUN (Urea Nitrogen) 17 mg/dL (9.8-20.1); Calc. Creatinine Clearance 64 mL/min (70-130); Calcium 7.5 mg/dL (7.8-10.44); Carbon Dioxide 25 mmol/L (23-31); Chloride 109 mmol/L (98-107); Estimated GFR-MDRD Greater than 90; Glucose 143 mg/dL (80-115); Sodium 139 mmol/L (136-145)
[2019-08-02] MEDS: methylPREDNISolone Sod Succ 40 MG VIAL IVP SCH ×4 (05:27→23:29)
[2019-08-02] MEDS: Budesonide 0.5 MG/2 ML NEB NEB SCH ×2 (07:58→18:09)
[2019-08-02] MEDS: Pantoprazole 40 MG VIAL IVP SCH (08:42)
[2019-08-02] MEDS: Enoxaparin Sodium 30 MG/0.3 ML SYRINGE SC SCH (08:42)
[2019-08-02] MEDS: hydrALAZINE 25 MG TAB PER TUBE SCH ×3 (08:43→19:35)
--- NOTE | 2019-08-02 11:00 | PRG ---
DATE OF SERVICE: 08/02/2019 SUBJECTIVE: Caterina Sousa has exhale time shorter. OBJECTIVE: VITAL SIGNS: Heart rates in the 90s, respiratory rates in the 20s, blood pressure 140/77. She is afebrile. LUNGS: Distant. HEART: Regular rhythm. ABDOMEN: Soft. LABORATORY DATA: White count 12.4, hemoglobin 11.1, and platelets 200,000. Sodium 139, potassium 4, chloride 109, bicarb 25, BUN 17, creatinine 0.6. We are decreasing ventilatory support, hoping to work towards weaning. Her coughing and agitations are an issue with weaning and extubation. At this point in time, we will continue decreasing ventilatory support. We have added Precedex to see if this helps. Critical care time was 35 min. Job ID: [id number] MTDD
[2019-08-02] MEDS: Sodium Chloride 0.9% 1,000 ML IV SCH (12:39)
--- NOTE | 2019-08-02 13:14 | PDOC.HOSPP ---
- Subjective Encounter Date: 08/02/19 Encounter Time: 10:30 Subjective: is on vent, sedated - Objective Vital Signs & Weight: Vital Signs (12 hours) Pulse Resp BP Pulse Ox 08/02/19 12:00 28 H 08/02/19 11:00 113 H 180/138 H 08/02/19 10:00 22 H 08/02/19 08:43 75 115/62 08/02/19 07:59 75 115/62 08/02/19 07:54 15 08/02/19 07:12 99 08/02/19 06:00 20 08/02/19 04:00 18 08/02/19 02:04 95 123/62 08/02/19 02:00 16 Weight Admit Weight 102 lb 1.12 oz Weight 101 lb 10.13 oz Most Recent Monitor Data Heart Rate from ECG 87 NIBP 113/64 NIBP BP-Mean 80 Respiration from ECG 24 SpO2 100 I&O: 08/01/19 08/02/19 08/03/19 06:59 06:59 06:59 Intake Total 2101 3188 198 Output Total 653 693 165 Balance 1448 2495 33 Result Diagrams: 08/02/19 04:25 08/02/19 04:25 Hospitalist ROS - Medication Medications: Active Medications Generic Name Dose Route Start Last Admin Trade Name Freq PRN Reason Stop Dose Admin Albuterol/Ipratropium 3 ml 07/30/19 18:30 08/02/19 11:00 Duoneb NEB 3 ml [id number] FAMILIA Administration Enoxaparin Sodium 30 mg 07/31/19 09:00 08/02/19 08:42 Lovenox SC 30 mg 0900 FAMILIA Administration Hydralazine HCl 25 mg 08/01/19 21:00 08/02/19 08:43 Apresoline PER TUBE 25 mg TID FAMILIA Administration Levofloxacin 500 mg/ Device 100 mls @ 100 mls/hr 07/30/19 11:00 08/02/19 11: 12 IVPB 100 mls 1100 FAMILIA Administration Sodium Chloride 1,000 mls @ 50 mls/hr 07/30/19 10:15 08/02/19 12:39 Normal Saline 0.9% IV 1,000 mls .Q20H FAMILIA Administration Dexmedetomidine HCl 200 mcg/ 50 mls @ 0 mls/hr 08/02/19 08:15 08/02/19 08:26 Sodium Chloride IVPB 50 mls INF FAMILIA Administration Protocol Titrate Lorazepam 2 mg 07/30/19 13:02 08/02/19 10:56 Ativan SLOW IVP 08/29/19 13:02 2 mg Q1H PRN Administration Breakthrough agitation Methylprednisolone Sodium Succinate 40 mg 07/30/19 12:00 08/02/19 12:00 Solu-Medrol IVP 40 mg Q6HR FAMILIA Administration Mirtazapine 15 mg 07/30/19 21:00 08/01/19 21:02 Remeron PO 15 mg QPM FAMILIA Administration Morphine Sulfate 2 mg 07/30/19 13:02 08/02/19 02:38 Morphine SLOW IVP 08/29/19 13:02 2 mg Q1H PRN Administration BREAKTHROUGH PAIN/Agitation Pantoprazole Sodium 40 mg 08/01/19 09:00 08/02/19 08:42 Protonix IVP 40 mg DAILY FAMILIA Administration Propofol 1,000 mg 07/30/19 13:02 08/02/19 02:27 Diprivan IV 08/29/19 13:02 1,000 mg INF PRN Administration TO ACHIEVE GOAL RASS Protocol Sertraline HCl 50 mg 08/02/19 09:00 08/02/19 08:42 Zoloft PER TUBE 50 mg DAILY FAMILIA Administration - Exam Eye: PERRL, anicteric sclera ENT: no oropharyngeal lesions, moist mucosa Neck: supple, no JVD Heart: RRR, no gallops Respiratory: no wheezes, no rales, rhonchi Gastrointestinal: soft, non-tender, non-distended, normal bowel sounds Extremities: no cyanosis, no edema Neurological: cranial nerve grossly intact, no focal deficits Hosp A/P (1) Acute respiratory failure with hypoxia and hypercapnia Code(s): J96.01 - ACUTE RESPIRATORY FAILURE WITH HYPOXIA; J96.02 - ACUTE RESPIRATORY FAILURE WITH HYPERCAPNIA Status: Acute (2) COPD exacerbation Code(s): J44.1 - CHRONIC OBSTRUCTIVE PULMONARY DISEASE W (ACUTE) EXACERBATION Status: Acute (3) HTN (hypertension) Code(s): I10 - ESSENTIAL (PRIMARY) HYPERTENSION Status: Chronic Qualifiers: Hypertension type: essential hypertension Qualified Code(s): I10 - Essential (primary) hypertension (4) Anxiety and depression Code(s): F41.9 - ANXIETY DISORDER, UNSPECIFIED; F32.9 - MAJOR DEPRESSIVE DISORDER, SINGLE EPISODE, UNSPECIFIED Status: Chronic (5) Protein-calorie malnutrition, moderate Code(s): E44.0 - MODERATE PROTEIN-CALORIE MALNUTRITION Status: Chronic (6) Scoliosis Status: Chronic Qualifiers: Scoliosis type: unspecified scoliosis Spinal region: thoracic Qualified Code(s): M41.9 - Scoliosis, unspecified - Plan weaning per pulm advice continue steroids, levaquin, pulmicort, duonebs, hydralazine, zoloft, remeron hemostable ng feeding
[2019-08-02] MEDS: Mirtazapine 15 MG TAB PO SCH (19:35)
--- NOTE | 2019-08-02 19:46 | PQF ---
CLINICAL DOCUMENTATION IMPROVEMENT CLARIFICATION FORM: ICD-10 Updated PLEASE DO AN ADDENDUM TO THE PROGRESS NOTE WITH ANY DOCUMENTATION UPDATES OR ADDITIONS AND CARRY THROUGH TO DC SUMMARY. THANK YOU. DATE: 08/02/19 ATTN: DR. VILLEGAS Please exercise your independent, professional judgment in responding to the clarification form. Clinical indicators are provided on the bottom of this form for your review Please check appropriate box(s) to clarify if the following diagnosis has been ruled in or ruled out: PNEUMONIA [ ] Ruled in diagnosis [ ] Continue to treat [ ] Resolved [ x ] Ruled out diagnosis [ ] Improving [ ] Cannot rule out diagnosis [ ] Other diagnosis [ ] Unable to determine In addition, please specify: Present on Admission (POA): [ ] Yes [ ] No [ ] Unable to determine For continuity of documentation, please document condition throughout progress notes and discharge summary. Thank You. CLINICAL INDICATORS - SIGNS / SYMPTOMS / LABS / RESULTS AND LOCATION IN MR ER NOTE: "LLL PNEUMONIA" PULSE 130 RR 28 WBC 07/29: 18.9 BANDS 17 RISKS: COPD EXACERBATION (H&P) ACUTE RESPIRATORY FAILURE (H&P) TREATMENT: AZITHROMYCIN IV (ER) IV ROCEPHIN (ER) DUONEBS(07/29-08/01) SOLUMEDROL (07/29-08/01) ON VENT 07/29 @ 1241 (This form is maintained as a part of the permanent medical record) 2014 [employer]. All Rights Reserved SEUN [email or web address]
[2019-08-03 03:32] LABS: Actual Bicarbonate (HCO3a) 25.4 mEq/L (22-28); Base Excess (BEa) 1.5 mEq/L (-2.0 to +3.0); CO2 Tension 37.4 mmHg (35.0-45.0); O2 Tension (PaO2), arterial 62.5 mmHg (> 80.0); pH, Arterial 7.45 (7.35-7.45)
[2019-08-03 03:33] LABS: Carboxyhemoglobin (COHb) 0.7 gm% (0.0-3.0)
[2019-08-03 03:35] LABS: Calcium, Ionized 1.13 mmol/L (1.12-1.30); Puncture Site RRA
[2019-08-03] MEDS: Sodium Chloride 0.9% 1,000 ML IV SCH (04:22)
[2019-08-03] MEDS: methylPREDNISolone Sod Succ 40 MG VIAL IVP SCH ×4 (05:22→23:58)
[2019-08-03] MEDS: Budesonide 0.5 MG/2 ML NEB NEB SCH ×2 (07:41→18:37)
[2019-08-03] MEDS: hydrALAZINE 25 MG TAB PER TUBE SCH ×3 (08:08→20:29)
[2019-08-03] MEDS: Enoxaparin Sodium 30 MG/0.3 ML SYRINGE SC SCH (08:08)
[2019-08-03] MEDS: Sodium Chloride 0.9% (PF) 10 ML VIAL FS PRN (08:09)
[2019-08-03] MEDS: Pantoprazole 40 MG VIAL IVP SCH (08:09)
[2019-08-03] MEDS: Propofol 1,000 MG/100 ML VIAL IV PRN ×2 (08:37→18:16)
[2019-08-03] MEDS ORDERED: Losartan 25 MG TAB PER TUBE ONE (09:15)
[2019-08-03] MEDS: Lorazepam 2 MG/ML VIAL SLOW IVP PRN ×3 (10:29→17:57)
[2019-08-03] MEDS: Morphine 2 MG/ML SYRINGE SLOW IVP PRN (11:14)
--- NOTE | 2019-08-03 13:59 | PDOC.HOSPP ---
- Subjective Encounter Date: 08/03/19 Encounter Time: 12:00 Subjective: on vent, sedated due to agitation - Objective Vital Signs & Weight: Vital Signs (12 hours) Pulse Resp BP Pulse Ox 08/03/19 13:51 127 H 08/03/19 13:41 142 H 176/78 H 08/03/19 13:10 102 H 184/90 H 08/03/19 12:00 19 08/03/19 10:37 102 H 184/90 H 08/03/19 10:00 27 H 08/03/19 08:08 76 183/98 H 08/03/19 08:00 27 H 96 08/03/19 07:42 76 149/76 H 08/03/19 06:00 31 H 08/03/19 04:00 19 08/03/19 02:03 86 175/91 H 08/03/19 02:00 34 H Weight Admit Weight 102 lb 1.12 oz Weight 104 lb 11.513 oz Most Recent Monitor Data Heart Rate from ECG 85 NIBP 188/100 NIBP BP-Mean 129 Respiration from ECG 30 SpO2 94 I&O: 08/02/19 08/03/19 08/04/19 06:59 06:59 06:59 Intake Total 3188 2356 178 Output Total 693 1000 365 Balance 2495 1356 -187 Result Diagrams: 08/02/19 04:25 08/02/19 04:25 Hospitalist ROS - Medication Medications: Active Medications Generic Name Dose Route Start Last Admin Trade Name Freq PRN Reason Stop Dose Admin Albuterol/Ipratropium 3 ml 07/30/19 18:30 08/03/19 13:56 Duoneb NEB 3 ml [id number] FAMILIA Administration Budesonide 0.5 mg 08/02/19 18:30 08/03/19 07:41 Pulmicort Neb Solution NEB 0.5 mg [id number] FAMILIA Administration Enoxaparin Sodium 30 mg 07/31/19 09:00 08/03/19 08:08 Lovenox SC 30 mg 0900 FAMILIA Administration Hydralazine HCl 25 mg 08/01/19 21:00 08/03/19 08:08 Apresoline PER TUBE 25 mg TID FAMILIA Administration Hydralazine HCl 10 mg 08/01/19 17:05 08/03/19 13:10 Apresoline SLOW IVP 10 mg Q4H PRN Administration SBP Greater Than 180 Levofloxacin 500 mg/ Device 100 mls @ 100 mls/hr 07/30/19 11:00 08/03/19 10: 08 IVPB 100 mls 1100 FAMILIA Administration Sodium Chloride 1,000 mls @ 50 mls/hr 07/30/19 10:15 08/03/19 04:22 Normal Saline 0.9% IV 1,000 mls .Q20H FAMILIA Administration Dexmedetomidine HCl 200 mcg/ 50 mls @ 0 mls/hr 08/02/19 08:15 08/03/19 10:13 Sodium Chloride IVPB 50 mls INF FAMILIA Administration Protocol Titrate Lorazepam 2 mg 07/30/19 13:02 08/03/19 12:52 Ativan SLOW IVP 08/29/19 13:02 2 mg Q1H PRN Administration Breakthrough agitation Methylprednisolone Sodium Succinate 40 mg 07/30/19 12:00 08/03/19 11:25 Solu-Medrol IVP 40 mg Q6HR FAMILIA Administration Mirtazapine 15 mg 07/30/19 21:00 08/02/19 19:35 Remeron PO 15 mg QPM FAMILIA Administration Morphine Sulfate 2 mg 07/30/19 13:02 08/03/19 11:14 Morphine SLOW IVP 08/29/19 13:02 2 mg Q1H PRN Administration BREAKTHROUGH PAIN/Agitation Pantoprazole Sodium 40 mg 08/01/19 09:00 08/03/19 08:09 Protonix IVP 40 mg DAILY FAMILIA Administration Propofol 1,000 mg 07/30/19 13:02 08/03/19 08:37 Diprivan IV 08/29/19 13:02 1,000 mg INF PRN Administration TO ACHIEVE GOAL RASS Protocol Sertraline HCl 50 mg 08/02/19 09:00 08/03/19 08:08 Zoloft PER TUBE 50 mg DAILY FAMILIA Administration Sodium Chloride 10 ml 07/31/19 09:12 08/03/19 08:09 Normal Saline Pf FS 10 ml PRN PRN Administration RECONSTITUTION - Exam Eye: PERRL, anicteric sclera ENT: no oropharyngeal lesions, dry oral mucosa Neck: supple, no JVD Heart: RRR, no murmur Respiratory: no wheezes, no rales, rhonchi Gastrointestinal: soft, non-tender, non-distended, normal bowel sounds Extremities: no cyanosis, no edema Neurological: cranial nerve grossly intact, no focal deficits Hosp A/P (1) Acute respiratory failure with hypoxia and hypercapnia Code(s): J96.01 - ACUTE RESPIRATORY FAILURE WITH HYPOXIA; J96.02 - ACUTE RESPIRATORY FAILURE WITH HYPERCAPNIA Status: Acute (2) COPD exacerbation Code(s): J44.1 - CHRONIC OBSTRUCTIVE PULMONARY DISEASE W (ACUTE) EXACERBATION Status: Acute (3) HTN (hypertension) Code(s): I10 - ESSENTIAL (PRIMARY) HYPERTENSION Status: Chronic Qualifiers: Hypertension type: essential hypertension Qualified Code(s): I10 - Essential (primary) hypertension (4) Anxiety and depression Code(s): F41.9 - ANXIETY DISORDER, UNSPECIFIED; F32.9 - MAJOR DEPRESSIVE DISORDER, SINGLE EPISODE, UNSPECIFIED Status: Chronic (5) Protein-calorie malnutrition, moderate Code(s): E44.0 - MODERATE PROTEIN-CALORIE MALNUTRITION Status: Chronic (6) Scoliosis Status: Chronic Qualifiers: Scoliosis type: unspecified scoliosis Spinal region: thoracic Qualified Code(s): M41.9 - Scoliosis, unspecified - Plan weaning per pulm advice continue steroids, levaquin, pulmicort, duonebs, hydralazine, zoloft, remeron hemostable ng feeding
--- NOTE | 2019-08-03 16:52 | PRG ---
DATE OF SERVICE: 08/03/2019 SUBJECTIVE: Caterina Sousa did well overnight. We let her awaken this morning, hoping to decrease ventilatory support to pressure support of 5, PEEP of 5, and then may be move toward extubation later today, but she did not tolerate this at all. Heart rate went up, respiratory rate went up, saturations went down, and she show signs of severe muscle weakness. She has been sedated again. OBJECTIVE: VITAL SIGNS: Her blood pressure is now 125/71, respiratory rates in the 20s, heart rate is 120, FiO2 is at 30%. LUNGS: Remarkable for wheezes. HEART: Regular rhythm. ABDOMEN: Soft. EXTREMITIES: Without edema. LABORATORY DATA: White count yesterday was 12.4. She has no CBC or electrolytes today. IMPRESSION AND PLAN: 1. Respiratory failure secondary to chronic obstructive pulmonary disease exacerbation. 2. Underlying severe chronic obstructive pulmonary disease. 3. Chronic hypoxemic respiratory failure. muscle deconditioning, I am really unsure as to whether or not she can survive this. She did communicate with me via yes and no. She told me she never wanted a tracheostomy. She said she did want to continue on mechanical ventilation for now. The family has been updated by the nursing staff. CRITICAL CARE TIME: 30 minutes. Job ID: [id number]
[2019-08-03] MEDS: Bacteriostatic Water 30 ML VIAL FS PRN (17:05)
[2019-08-03] MEDS: Mirtazapine 15 MG TAB PO SCH (20:29)
[2019-08-04] MEDS: Lorazepam 2 MG/ML VIAL SLOW IVP PRN ×3 (00:36→23:02)
[2019-08-04 04:31] LABS: Band 1 % (5-11); Hemoglobin 12.1 g/dL (12.0-16.0); Lymphocytes 3 % (21-51); MDiff Complete? YES; Macrocytosis SLIGHT = 6-15 cells (100X) (0-5/hpf); Mean Corpuscular HGB CONC 32.6 g/dL (32.0-36.0); Mean Corpuscular Hemoglobin 34.4 pg (27.0-31.0); Mean Platelet Volume 8.5 fL (7.4-10.4); Monocytes 3 % (0-10); Neutrophil 93 % (42-75); Platelet Count 207 thou/uL (130-400); Platelet Morphology Comment Appears Adequate; RBC Distribution Width 12.7 % (11.5-14.5); Red Blood Cell (RBC) Count 3.53 mill/uL (4.20-5.40); White Blood Cell (WBC) Count 14.9 thou/uL (4.8-10.8)
[2019-08-04 04:33] LABS: Anion Gap 14 mmol/L (10-20); BUN (Urea Nitrogen) 24 mg/dL (9.8-20.1); Calc. Creatinine Clearance 65 mL/min (70-130); Calcium 8.3 mg/dL (7.8-10.44); Carbon Dioxide 23 mmol/L (23-31); Chloride 107 mmol/L (98-107); Estimated GFR-MDRD Greater than 90; Glucose 121 mg/dL (80-115); Potassium 3.3 mmol/L (3.5-5.1); Sodium 141 mmol/L (136-145)
[2019-08-04] MEDS: Propofol 1,000 MG/100 ML VIAL IV PRN (04:59)
[2019-08-04] MEDS: Sodium Chloride 0.9% 1,000 ML IV SCH ×2 (04:59→22:59)
[2019-08-04] MEDS: methylPREDNISolone Sod Succ 40 MG VIAL IVP SCH ×4 (06:08→23:01)
[2019-08-04] MEDS: Budesonide 0.5 MG/2 ML NEB NEB SCH ×2 (07:24→18:15)
--- NOTE | 2019-08-04 09:39 | PRG ---
DATE OF SERVICE: 08/04/2019 SUBJECTIVE: Caterina Sousa sedated for mechanical ventilation. OBJECTIVE: VITAL SIGNS: Hemodynamics are stable. She is afebrile. Heart rate is in the 70s, blood pressure is 150/70, respiratory rate is in the 20s. LUNGS: Unchanged. HEART: Unchanged. ABDOMEN: Unchanged. She has distant breath sounds. LABORATORY DATA: White count is 14.9, hemoglobin is 12.1, platelets 207,000. Sodium 141, potassium 3.3, chloride 107, bicarb 22, BUN 24, creatinine 0.6. IMPRESSION: 1. Advanced chronic obstructive pulmonary disease with chronic hypoxemic respiratory failure. 2. Deconditioning. PLAN: We will try letting her wake up again in the morning. I am not optimistic that she can wean from mechanical ventilation. She has communicated that she does not want a tracheostomy. I plan to talk to her sister later this morning. Critical care time 30 min. Job ID: [id number] MTDD
[2019-08-04] MEDS: Losartan 25 MG TAB PER TUBE SCH (10:25)
[2019-08-04] MEDS: Enoxaparin Sodium 30 MG/0.3 ML SYRINGE SC SCH (10:25)
[2019-08-04] MEDS: Pantoprazole 40 MG VIAL IVP SCH (10:26)
[2019-08-04] MEDS: hydrALAZINE 25 MG TAB PER TUBE SCH ×3 (10:26→20:29)
--- NOTE | 2019-08-04 12:41 | PDOC.HOSPP ---
- Subjective Encounter Date: 08/04/19 Encounter Time: 11:35 Subjective: is on vent, sedated not in distress - Objective Vital Signs & Weight: Vital Signs (12 hours) Temp Pulse Resp BP Pulse Ox 08/04/19 10:56 84 32 H 96 08/04/19 10:00 24 H 08/04/19 08:00 98.9 F 20 08/04/19 07:26 74 129/77 08/04/19 07:24 73 16 100 08/04/19 07:23 73 16 100 08/04/19 06:00 21 H 08/04/19 04:00 30 H 08/04/19 02:31 91 08/04/19 02:00 25 H Weight Admit Weight 102 lb 1.12 oz Weight 105 lb 9.623 oz Most Recent Monitor Data Heart Rate from ECG 92 NIBP 153/88 NIBP BP-Mean 109 Respiration from ECG 25 SpO2 99 I&O: 08/03/19 08/04/19 08/05/19 06:59 06:59 06:59 Intake Total 2356 2668.4 30 Output Total 1000 1015 55 Balance 1356 1653.4 -25 Result Diagrams: 08/04/19 03:03 08/04/19 03:03 Hospitalist ROS - Medication Medications: Active Medications Generic Name Dose Route Start Last Admin Trade Name Freq PRN Reason Stop Dose Admin Acetaminophen 650 mg 07/30/19 10:08 08/03/19 14:19 Tylenol PO 650 mg Q4H PRN Administration Headache/Fever/Mild Pain (1-3) Albuterol/Ipratropium 3 ml 07/30/19 18:30 08/04/19 10:56 Duoneb NEB 3 ml [id number] FAMILIA Administration Budesonide 0.5 mg 08/02/19 18:30 08/04/19 07:24 Pulmicort Neb Solution NEB 0.5 mg BID-RT FAMILIA Administration Enoxaparin Sodium 30 mg 07/31/19 09:00 08/03/19 08:08 Lovenox SC 30 mg 0900 FAMILIA Administration Hydralazine HCl 25 mg 08/01/19 21:00 08/03/19 20:29 Apresoline PER TUBE 25 mg TID FAMILIA Administration Hydralazine HCl 10 mg 08/01/19 17:05 08/03/19 13:10 Apresoline SLOW IVP 10 mg Q4H PRN Administration SBP Greater Than 180 Levofloxacin 500 mg/ Device 100 mls @ 100 mls/hr 07/30/19 11:00 08/03/19 10: 08 IVPB 100 mls 1100 FAMILIA Administration Sodium Chloride 1,000 mls @ 50 mls/hr 07/30/19 10:15 08/04/19 04:59 Normal Saline 0.9% IV 1,000 mls .Q20H FAMILIA Administration Dexmedetomidine HCl 200 mcg/ 50 mls @ 0 mls/hr 08/02/19 08:15 08/04/19 04:59 Sodium Chloride IVPB 50 mls INF FAMILIA Administration Protocol Titrate Lorazepam 2 mg 07/30/19 13:02 08/04/19 00:36 Ativan SLOW IVP 08/29/19 13:02 2 mg Q1H PRN Administration Breakthrough agitation Methylprednisolone Sodium Succinate 40 mg 07/30/19 12:00 08/04/19 06:08 Solu-Medrol IVP 40 mg Q6HR FAMILIA Administration Mirtazapine 15 mg 07/30/19 21:00 08/03/19 20:29 Remeron PO 15 mg QPM FAMILIA Administration Morphine Sulfate 2 mg 07/30/19 13:02 08/03/19 11:14 Morphine SLOW IVP 08/29/19 13:02 2 mg Q1H PRN Administration BREAKTHROUGH PAIN/Agitation Pantoprazole Sodium 40 mg 08/01/19 09:00 08/03/19 08:09 Protonix IVP 40 mg DAILY FAMILIA Administration Propofol 1,000 mg 07/30/19 13:02 08/04/19 04:59 Diprivan IV 08/29/19 13:02 1,000 mg INF PRN Administration TO ACHIEVE GOAL RASS Protocol Sertraline HCl 50 mg 08/02/19 09:00 08/03/19 08:08 Zoloft PER TUBE 50 mg DAILY FAMILIA Administration Sodium Chloride 10 ml 07/31/19 09:12 08/03/19 08:09 Normal Saline Pf FS 10 ml PRN PRN Administration RECONSTITUTION Sterile Water 1 ml 07/30/19 10:19 08/03/19 17:05 Bacteriostatic Water FS 1 ml PRN PRN Administration RECONSTITUTION - Exam General Appearance: ill appearing Eye: PERRL, anicteric sclera ENT: no oropharyngeal lesions, dry oral mucosa Neck: supple, no JVD Heart: RRR, no murmur Respiratory: no wheezes, no rales, rhonchi Gastrointestinal: soft, non-tender, non-distended, normal bowel sounds Extremities - other findings: left UE edema with mottling and blistering Neurological: cranial nerve grossly intact, no focal deficits Hosp A/P (1) Acute respiratory failure with hypoxia and hypercapnia Code(s): J96.01 - ACUTE RESPIRATORY FAILURE WITH HYPOXIA; J96.02 - ACUTE RESPIRATORY FAILURE WITH HYPERCAPNIA Status: Acute (2) COPD exacerbation Code(s): J44.1 - CHRONIC OBSTRUCTIVE PULMONARY DISEASE W (ACUTE) EXACERBATION Status: Acute (3) HTN (hypertension) Code(s): I10 - ESSENTIAL (PRIMARY) HYPERTENSION Status: Chronic Qualifiers: Hypertension type: essential hypertension Qualified Code(s): I10 - Essential (primary) hypertension (4) Anxiety and depression Code(s): F41.9 - ANXIETY DISORDER, UNSPECIFIED; F32.9 - MAJOR DEPRESSIVE DISORDER, SINGLE EPISODE, UNSPECIFIED Status: Chronic (5) Protein-calorie malnutrition, moderate Code(s): E44.0 - MODERATE PROTEIN-CALORIE MALNUTRITION Status: Chronic (6) Scoliosis Status: Chronic Qualifiers: Scoliosis type: unspecified scoliosis Spinal region: thoracic Qualified Code(s): M41.9 - Scoliosis, unspecified - Plan weaning per pulm advice continue steroids, levaquin, pulmicort, duonebs, hydralazine, zoloft, remeron hemostable ng feeding elevate left UE over pillows, remove BP monitoring cuff and iv as well. Tried to contact Mr.Thomas Sousa this am, couldn't reach him
[2019-08-04] MEDS: Mirtazapine 15 MG TAB PO SCH (20:29)
[2019-08-05] MEDS: Propofol 1,000 MG/100 ML VIAL IV PRN ×2 (03:32→18:15)
[2019-08-05 04:08] LABS: Anion Gap 13 mmol/L (10-20); BUN (Urea Nitrogen) 22 mg/dL (9.8-20.1); Calc. Creatinine Clearance 71 mL/min (70-130); Calcium 7.7 mg/dL (7.8-10.44); Carbon Dioxide 22 mmol/L (23-31); Chloride 112 mmol/L (98-107); Estimated GFR-MDRD Greater than 90; Glucose 124 mg/dL (80-115); Potassium 3.3 mmol/L (3.5-5.1); Sodium 144 mmol/L (136-145)
[2019-08-05 04:18] LABS: Band 2 % (5-11); Hemoglobin 10.7 g/dL (12.0-16.0); Lymphocytes 7 % (21-51); MDiff Complete? YES; Mean Corpuscular HGB CONC 32.1 g/dL (32.0-36.0); Mean Corpuscular Hemoglobin 33.8 pg (27.0-31.0); Mean Platelet Volume 8.6 fL (7.4-10.4); Metamyelocyte 3 % (0-0); Monocytes 11 % (0-10); Neutrophil 77 % (42-75); Platelet Count 193 thou/uL (130-400); Platelet Morphology Comment Appears Adequate; RBC Distribution Width 12.7 % (11.5-14.5); Red Blood Cell (RBC) Count 3.17 mill/uL (4.20-5.40); White Blood Cell (WBC) Count 11.3 thou/uL (4.8-10.8)
[2019-08-05] MEDS: methylPREDNISolone Sod Succ 40 MG VIAL IVP SCH ×2 (06:05→12:45)
[2019-08-05] MEDS: Budesonide 0.5 MG/2 ML NEB NEB SCH ×2 (06:39→18:21)
[2019-08-05 07:15] LABS: Actual Bicarbonate (HCO3a) 24.1 mEq/L (22-28); Base Excess (BEa) 1.1 mEq/L (-2.0 to +3.0); Calcium, Ionized 1.11 mmol/L (1.12-1.30); Carboxyhemoglobin (COHb) 0.7 gm% (0.0-3.0); Hemoglobin (Hb) 10.9 g/dL (12.0-16.0); O2 Tension (PaO2), arterial 95.5 mmHg (> 80.0); Potassium - ABG Lab 3.34 mmol/L (3.70-5.30); Puncture Site LR; pH, Arterial 7.48 (7.35-7.45)
[2019-08-05] MEDS: hydrALAZINE 25 MG TAB PER TUBE SCH ×3 (08:57→20:17)
[2019-08-05] MEDS: Losartan 25 MG TAB PER TUBE SCH (08:58)
[2019-08-05] MEDS: Enoxaparin Sodium 30 MG/0.3 ML SYRINGE SC SCH (08:58)
[2019-08-05] MEDS: Pantoprazole 40 MG VIAL IVP SCH (08:59)
[2019-08-05] MEDS ORDERED: CCU Electrolyte Replacement 1 EACH FS SCH (09:53)
[2019-08-05] MEDS ORDERED: Potassium Chloride 40 MEQ in Sodium Chloride 0.9% 250 ML 250 ML IVPB PRN (10:06)
[2019-08-05] MEDS ORDERED: Magnesium Oxide 400 MG TAB PO PRN ×2 (10:06)
[2019-08-05] MEDS ORDERED: Potassium Phosphate 9 MMOL in Sodium Chloride 0.9% 100 ML IVPB PRN (10:06)
[2019-08-05] MEDS ORDERED: Potassium Phosphate 12 MMOL in Sodium Chloride 0.9% 250 ML 250 ML IV PRN (10:06)
[2019-08-05] MEDS ORDERED: Potassium Chloride 40 MEQ in Premix Bag 1 BAG IVPB PRN (10:06)
[2019-08-05] MEDS ORDERED: Potassium Phosphate 15 MMOL in Sodium Chloride 0.9% 250 ML 250 ML IV PRN (10:06)
[2019-08-05] MEDS ORDERED: CCU ELECTROLYTE REPLACEMENT PROTOCOL FS PRN (10:06)
[2019-08-05] MEDS ORDERED: PHOS-NAK 1 PKT PACK PO PRN ×2 (10:06)
[2019-08-05] MEDS ORDERED: Magnesium 2 GM/50 ML 2 GM in Premix Bag 1 BAG IVPB PRN (10:06)
[2019-08-05 12:10] VITALS: BMI 21.7
[2019-08-05] MEDS: Potassium Chloride 20 MEQ TAB PO PRN ×2 (14:15→18:16)
--- NOTE | 2019-08-05 17:29 | PRG ---
DATE OF SERVICE: 08/05/2019 SUBJECTIVE: Caterina Sousa did reasonably well this morning with 5 of pressure support and 5 of PEEP. She was on Precedex. When she would awaken, she would become dyssynchronous and tachypneic. With 03/04, she has done very well. As I have explained to the sister by phone today, I think Ms. Sousa's problems now are related to muscle weakness and deconditioning. Her long exhale time has resolved, and I believe her COPD exacerbation for the most part has resolved. PLAN: We will continue to try to slowly wean her and perhaps wean her to noninvasive ventilatory support. She told me several days ago she did not want a tracheostomy, but I am also not sure if she is entirely competent at this point. I have explained this to the sister as well. We will continue the current support. We will decrease the steroid dosing hopefully to minimize the risk of a steroid myopathy. She will remain in the critical care unit and remain mechanically ventilated. She will get up in the neuro chair here in the morning. We will try decreasing ventilatory support again. Critical care time 30 min. Job ID: [id number] MTDD
[2019-08-05] MEDS: Sodium Chloride 0.9% 1,000 ML IV SCH (18:15)
[2019-08-05] MEDS: Mirtazapine 15 MG TAB PO SCH (20:17)
--- NOTE | 2019-08-05 22:50 | PDOC.HOSPP ---
- Subjective Encounter Date: 08/05/19 Encounter Time: 15:00 non-verbal Subjective: Patient seen and examined for resp failure. On Vent. No new complaints. No overnight events - Objective Vital Signs & Weight: Vital Signs (12 hours) Temp Pulse Resp BP Pulse Ox 08/05/19 22:00 14 08/05/19 21:44 82 132/67 08/05/19 20:17 83 154/69 H 08/05/19 20:00 99.1 F 16 99 08/05/19 18:22 93 182/94 H 08/05/19 18:00 15 08/05/19 17:00 98.9 F 08/05/19 16:00 10 L 08/05/19 14:37 78 163/79 H 08/05/19 14:36 81 15 100 08/05/19 14:00 12 08/05/19 12:00 17 08/05/19 11:22 76 18 142/84 H 100 Weight Admit Weight 102 lb 1.12 oz Weight 114 lb 13.773 oz Most Recent Monitor Data Heart Rate from ECG 89 NIBP 154/74 NIBP BP-Mean 100 Respiration from ECG 11 SpO2 99 I&O: 08/04/19 08/05/19 08/06/19 06:59 06:59 06:59 Intake Total 2668.4 2703.4 1628.8 Output Total 1015 1091 535 Balance 1653.4 1612.4 1093.8 Result Diagrams: 08/05/19 03:06 08/05/19 03:06 EKG Reviewed by me: Yes (Tele SR) Hospitalist ROS - Review of Systems ROS unobtainable: due to endotracheal tube - Medication Medications: Active Medications Generic Name Dose Route Start Last Admin Trade Name Freq PRN Reason Stop Dose Admin Acetaminophen 650 mg 07/30/19 10:08 08/03/19 14:19 Tylenol PO 650 mg Q4H PRN Administration Headache/Fever/Mild Pain (1-3) Albuterol/Ipratropium 3 ml 07/30/19 18:30 08/05/19 21:44 Duoneb NEB 3 ml [id number] FAMILIA Administration Budesonide 0.5 mg 08/02/19 18:30 08/05/19 18:21 Pulmicort Neb Solution NEB 0.5 mg BID-RT FAMILIA Administration Enoxaparin Sodium 30 mg 05/02/20 09:00 08/05/19 08:58 Lovenox SC 30 mg 0900 FAMILIA Administration Hydralazine HCl 25 mg 08/01/19 21:00 08/05/19 20:17 Apresoline PER TUBE 25 mg TID FAMILIA Administration Hydralazine HCl 10 mg 08/01/19 17:05 08/03/19 13:10 Apresoline SLOW IVP 10 mg Q4H PRN Administration SBP Greater Than 180 Sodium Chloride 1,000 mls @ 50 mls/hr 07/30/19 10:15 08/05/19 18:15 Normal Saline 0.9% IV 1,000 mls .Q20H FAMILIA Administration Dexmedetomidine HCl 200 mcg/ 50 mls @ 0 mls/hr 08/02/19 08:15 08/05/19 18:16 Sodium Chloride IVPB 50 mls INF FAMILIA Administration Protocol Titrate Lorazepam 2 mg 07/30/19 13:02 08/04/19 23:02 Ativan SLOW IVP 08/29/19 13:02 2 mg Q1H PRN Administration Breakthrough agitation Losartan Potassium 50 mg 08/04/19 09:00 08/05/19 08:58 Cozaar PER TUBE 50 mg DAILY FAMILIA Administration Mirtazapine 15 mg 07/30/19 21:00 08/05/19 20:17 Remeron PO 15 mg QPM FAMILIA Administration Morphine Sulfate 2 mg 07/30/19 13:02 08/03/19 11:14 Morphine SLOW IVP 08/29/19 13:02 2 mg Q1H PRN Administration BREAKTHROUGH PAIN/Agitation Pantoprazole Sodium 40 mg 08/01/19 09:00 08/05/19 08:59 Protonix IVP 40 mg DAILY FAMILIA Administration Potassium Chloride 40 meq 08/05/19 10:06 08/05/19 18:16 K-Dur PO 40 meq ASDIR PRN Administration FOR SERUM K+ 2.5 - 3.5 Propofol 1,000 mg 07/30/19 13:02 08/05/19 18:15 Diprivan IV 08/29/19 13:02 1,000 mg INF PRN Administration TO ACHIEVE GOAL RASS Protocol Sertraline HCl 50 mg 08/02/19 09:00 08/05/19 08:58 Zoloft PER TUBE 50 mg DAILY FAMILIA Administration Sodium Chloride 10 ml 07/31/19 09:12 08/03/19 08:09 Normal Saline Pf FS 10 ml PRN PRN Administration RECONSTITUTION Sterile Water 1 ml 07/30/19 10:19 08/03/19 17:05 Bacteriostatic Water FS 1 ml PRN PRN Administration RECONSTITUTION - Exam General Appearance: NAD Neck: supple, no JVD Heart: RRR, no gallops Respiratory: no wheezes, rhonchi Gastrointestinal: soft, non-tender, normal bowel sounds Extremities: no cyanosis Hosp A/P - Plan DVT proph w/SCDs Acute on chronic hypoxic-hypercapnic resp failure/COPD exacerbation HTN Hyperkalemia Leucocytosis due to #1 Hyponatremia PLAN: Cont IV Solumedrol/Nebs Atbx completed On Mech Ventilation Cont tube feed Cont other meds AM labs
[2019-08-06 04:25] LABS: Anion Gap 12 mmol/L (10-20); BUN (Urea Nitrogen) 20 mg/dL (9.8-20.1); Calc. Creatinine Clearance 78 mL/min (70-130); Calcium 7.9 mg/dL (7.8-10.44); Carbon Dioxide 25 mmol/L (23-31); Chloride 111 mmol/L (98-107); Estimated GFR-MDRD Greater than 90; Glucose 100 mg/dL (80-115); Potassium 3.1 mmol/L (3.5-5.1); Sodium 145 mmol/L (136-145)
[2019-08-06] MEDS: Propofol 1,000 MG/100 ML VIAL IV PRN (05:05)
[2019-08-06 05:40] LABS: Hemoglobin 10.3 g/dL (12.0-16.0); Mean Corpuscular HGB CONC 32.4 g/dL (32.0-36.0); Mean Platelet Volume 8.6 fL (7.4-10.4); Platelet Count 191 thou/uL (130-400); RBC Distribution Width 12.4 % (11.5-14.5); Red Blood Cell (RBC) Count 3.03 mill/uL (4.20-5.40); White Blood Cell (WBC) Count 10.5 thou/uL (4.8-10.8)
[2019-08-06 05:55] LABS: Band 9 % (5-11); Eosinophils 2 % (0-10); Lymphocytes 7 % (21-51); MDiff Complete? YES; Monocytes 4 % (0-10); Myelocyte 2 % (0-0); Neutrophil 76 % (42-75)
[2019-08-06] MEDS: Budesonide 0.5 MG/2 ML NEB NEB SCH ×2 (06:54→18:24)
[2019-08-06 07:05] LABS: Base Excess (BEa) 0.4 mEq/L (-2.0 to +3.0); CO2 Tension 35.1 mmHg (35.0-45.0); Calcium, Ionized 1.14 mmol/L (1.12-1.30); Carboxyhemoglobin (COHb) 0.8 gm% (0.0-3.0); Hemoglobin (Hb) 11.2 g/dL (12.0-16.0); Potassium - ABG Lab 3.55 mmol/L (3.70-5.30); pH, Arterial 7.45 (7.35-7.45)
[2019-08-06 07:20] LABS: Puncture Site LR
[2019-08-06 07:21] LABS: ALV-art Gradient 87.025 (0-20)
[2019-08-06 09:01] LABS: Magnesium 1.9 mg/dL (1.6-2.6)
[2019-08-06] MEDS: Pantoprazole 40 MG VIAL IVP SCH (09:09)
[2019-08-06] MEDS: Sodium Chloride 0.9% (PF) 10 ML VIAL FS PRN (09:09)
[2019-08-06] MEDS: Losartan 25 MG TAB PER TUBE SCH (09:09)
[2019-08-06] MEDS: Enoxaparin Sodium 30 MG/0.3 ML SYRINGE SC SCH (09:09)
[2019-08-06] MEDS: hydrALAZINE 25 MG TAB PER TUBE SCH ×3 (09:10→21:36)
[2019-08-06] MEDS: methylPREDNISolone Sod Succ 40 MG VIAL IVP SCH (09:11)
--- NOTE | 2019-08-06 09:36 | PRG ---
DATE OF SERVICE: 08/06/2019 SUBJECTIVE: Caterina Sousa is probably close to her baseline. Her exhale time is short. We have cut her Precedex dose in half. She is being extubated to BiPAP at this time. She passed a leak test. OBJECTIVE: LUNGS: Distant. HEART: Regular rhythm. ABDOMEN: Soft. EXTREMITIES: Without edema. NEURO: Nonfocal. LABORATORY DATA: White count 10.5, hemoglobin 10.3, platelets 191. Sodium 145, potassium 3.1, chloride 111, bicarb 25, BUN 20, creatinine 0.57. IMPRESSION: 1. Chronic obstructive pulmonary disease exacerbation with respiratory failure. 2. Reported history of alpha-1 antitrypsin deficiency according to her sister. PLAN: We will continue her in the Critical Care Unit. Hopefully, she will do well with BiPAP. Critical care time 30 min. Job ID: [id number] MTDD
--- NOTE | 2019-08-06 10:34 | PRG ---
DATE OF SERVICE: 08/06/2019 Ms. Sousa has been successfully extubated. She is on BiPAP. Some low dose of Precedex. She was quickly interactive. I asked her if she wanted to be intubated again and she informed me no. I explained to her that if she required re-intubation, she would require tracheostomy and she also shook her head no with that idea. Hopefully, we can move forward on BiPAP with intermittent breaks from BiPAP and we will see some strengthening and improvement in her overall muscle function. I did explain to the sister by phone as a designated agricultural equipment salesperson what we were doing. She is supportive from [place]. We cannot make it down her at this time. Job ID: [id number] [facility]
[2019-08-06] MEDS ORDERED: Enoxaparin Sodium 30 MG/0.3 ML SYRINGE SC SCH (10:45)
[2019-08-06] MEDS: Sodium Chloride 0.9% 1,000 ML IV SCH (12:53)
[2019-08-06] MEDS ORDERED: cloNIDine 0.1 MG TAB PO PRN (15:03)
--- NOTE | 2019-08-06 15:04 | PDOC.HOSPP ---
- Subjective Encounter Date: 08/06/19 Encounter Time: 14:00 Subjective: Patient seen and examined for resp failure. Extubated. on NIPPV. No new complaints. No overnight events - Objective Vital Signs & Weight: Vital Signs (12 hours) Temp Pulse Resp BP Pulse Ox 08/06/19 14:55 93 08/06/19 14:54 98 28 H 100 08/06/19 10:02 100 100 08/06/19 09:58 114 H 28 H 100 08/06/19 09:10 88 135/75 08/06/19 06:52 94 178/80 H 08/06/19 06:48 94 20 98 08/06/19 06:00 26 H 08/06/19 04:00 100 F H 20 Weight Admit Weight 102 lb 1.12 oz Weight 110 lb 14.28 oz Most Recent Monitor Data Heart Rate from ECG 100 NIBP 178/80 NIBP BP-Mean 112 Respiration from ECG 23 SpO2 98 I&O: 08/05/19 08/06/19 08/07/19 06:59 06:59 06:59 Intake Total 2703.4 2768.1 Output Total 1091 1135 Balance 1612.4 1633.1 Result Diagrams: 08/06/19 03:20 08/06/19 03:20 EKG Reviewed by me: Yes (Tele SR) Hospitalist ROS - Review of Systems Constitutional: denies: fever, chills, sweats, weakness, malaise, other Gastrointestinal: denies: nausea, vomiting, abdominal pain, diarrhea, constipation, melena, hematochezia, other - Medication Medications: Active Medications Generic Name Dose Route Start Last Admin Trade Name Freq PRN Reason Stop Dose Admin Acetaminophen 650 mg 07/30/19 10:08 08/03/19 14:19 Tylenol PO 650 mg Q4H PRN Administration Headache/Fever/Mild Pain (1-3) Albuterol/Ipratropium 3 ml 07/30/19 18:30 08/06/19 14:54 Duoneb NEB 3 ml [id number] FAMILIA Administration Budesonide 0.5 mg 08/02/19 18:30 08/06/19 06:54 Pulmicort Neb Solution NEB 0.5 mg BID-RT FAMILIA Administration Hydralazine HCl 25 mg 08/01/19 21:00 08/06/19 09:10 Apresoline PER TUBE 25 mg TID FAMILIA Administration Hydralazine HCl 10 mg 08/01/19 17:05 08/03/19 13:10 Apresoline SLOW IVP 10 mg Q4H PRN Administration SBP Greater Than 180 Sodium Chloride 1,000 mls @ 50 mls/hr 07/30/19 10:15 08/06/19 12:53 Normal Saline 0.9% IV 1,000 mls .Q20H FAMILIA Administration Dexmedetomidine HCl 200 mcg/ 50 mls @ 0 mls/hr 08/02/19 08:15 08/06/19 12:52 Sodium Chloride IVPB 50 mls INF FAMILIA Administration Protocol Titrate Potassium Chloride 40 meq/ 100 mls @ 50 mls/hr 08/05/19 10:06 08/06/19 05:27 Device IVPB 100 mls ASDIR PRN Administration FOR SERUM K+ 2.5 - 3.5 Losartan Potassium 50 mg 08/04/19 09:00 08/06/19 09:09 Cozaar PER TUBE 50 mg DAILY FAMILIA Administration Methylprednisolone Sodium Succinate 40 mg 08/06/19 09:00 08/06/19 09:11 Solu-Medrol IVP 40 mg DAILY FAMILIA Administration Mirtazapine 15 mg 07/30/19 21:00 08/05/19 20:17 Remeron PO 15 mg QPM FAMILIA Administration Morphine Sulfate 2 mg 07/30/19 13:02 08/03/19 11:14 Morphine SLOW IVP 08/29/19 13:02 2 mg Q1H PRN Administration BREAKTHROUGH PAIN/Agitation Pantoprazole Sodium 40 mg 08/01/19 09:00 08/06/19 09:09 Protonix IVP 40 mg DAILY FAMILIA Administration Potassium Chloride 40 meq 08/05/19 10:06 08/05/19 18:16 K-Dur PO 40 meq ASDIR PRN Administration FOR SERUM K+ 2.5 - 3.5 Sertraline HCl 50 mg 08/02/19 09:00 08/06/19 09:10 Zoloft PER TUBE 50 mg DAILY FAMILIA Administration Sodium Chloride 10 ml 07/31/19 09:12 08/06/19 09:09 Normal Saline Pf FS 10 ml PRN PRN Administration RECONSTITUTION Sterile Water 1 ml 07/30/19 10:19 08/03/19 17:05 Bacteriostatic Water FS 1 ml PRN PRN Administration RECONSTITUTION - Exam General Appearance: ill appearing Heart: RRR, no gallops Respiratory: no wheezes, rhonchi Gastrointestinal: soft, non-tender, non-distended, normal bowel sounds Extremities: no cyanosis, no clubbing Hosp A/P - Plan respiratory therapy, DVT proph w/lovenox, DVT proph w/SCDs Acute on chronic hypoxic-hypercapnic resp failure/COPD exacerbation s/p extubation 08/05 HTN Hyperkalemia Leucocytosis due to #1 Hyponatremia PLAN: Cont IV Solumedrol Cont NIPPV Cont Nebs Add PRN HTN meds Cont other meds BMP in AM
--- NOTE | 2019-08-06 16:27 | PDOC.PALCO ---
Palliative Care Consult - Consult Details Requesting Physician: Dr Arellano Reason for Consult: goals of care - Pertinent HPI 69 year old female who lives independently at home with her . was called for worsening shortness of breath over the past two days, progressing to inability to sit in chair. CPAP placed by EMS with transition to Bipap. Stopped chemo and immunotherapy in May for colon cancer. Admitted to CCU for further management, subsequent intubation. Extubated and pulmonary has discussed with patient no reintubation secondary to poor meaningful recovery. - Pertinent PMH COPD, Colon Cancer, Anemia, Scolosis, diastolic dysfunction - Social History Smoking Status: Former smoker Smoking: quit greater than 1 year Alcohol Use: none Drug Use History: none Living Situation: - Allergies Allergies/Adverse Reactions: Allergies Allergy/AdvReac Type Severity Reaction Status Date / Time shellfish derived Allergy Unknown Verified 12/25/14 17:37 codeine Allergy Verified 07/30/19 12:11 iodine Allergy Verified 12/27/14 10:25 - Subjective Labored respirations on Bipap. Able to nod her head but difficult to fully engage in ROS secondary to labored respirations - ROS Constitutional: alert, weakness ENT: dry mouth Respiratory: shortness of breath with extertion Musculoskeletal: arthritis/arthralgias Skin: bruising, dry Psychological: anxiety - Objective Vital Signs: Vital Signs - Most Recent Temp Pulse Resp BP Pulse Ox 100 F H 93 28 H 135/75 100 08/06/19 04:00 08/06/19 14:55 08/06/19 14:54 08/06/19 09:10 08/06/19 14:54 Palliative Performance Scale: 30 - Physical Exam Constitutional: cachectic, emaciated, ill appearing, mild distress HEENT: moist MMs, sclera anicteric Respiratory: accessory muscle use, diminished lung sound, labored respirations Cardiovascular: RRR Gastrointestinal: soft, non-tender Genitourinary: machado catheter Musculoskeletal: pulses present, diffuse muscle atrophy Neurology: moves all 4 limbs Skin: bruising, fragile Deviation from normal: Anxious - Problem List (1) Acute on chronic respiratory failure with hypoxemia Code(s): J96.21 - ACUTE AND CHRONIC RESPIRATORY FAILURE WITH HYPOXIA Status: Acute (2) Acute respiratory failure with hypoxia and hypercapnia Code(s): J96.01 - ACUTE RESPIRATORY FAILURE WITH HYPOXIA; J96.02 - ACUTE RESPIRATORY FAILURE WITH HYPERCAPNIA Status: Acute (3) Physical deconditioning Code(s): R53.81 - OTHER MALAISE Status: Acute (4) Symptomatic anemia Code(s): D64.9 - ANEMIA, UNSPECIFIED Status: Acute (5) Anxiety and depression Code(s): F41.9 - ANXIETY DISORDER, UNSPECIFIED; F32.9 - MAJOR DEPRESSIVE DISORDER, SINGLE EPISODE, UNSPECIFIED Status: Chronic - Plan/Recommendations Plan: Received consult from Dr Arellano. Patient also called the Palliative Care office and requested that we be consulted to see his . He had reached out to [facility] to see if they could help with his , they informed him the consult would need to come from the hospital, thus guided to call Palliative Care. Met with Mrs Sousa. Labored respirations, does not desire to be reintubated. Understanding and agreeable to see Hospice for evaluation. Goal of care is to return to home setting with hospice. Discussed with Dr Arellano and Dr Holly husbands request for hospice consult, they were agreeable. requested [facility] evaluate patient, verbal choice letter placed on chart. Stacy Echavarria RN communicated with CM in relation to husbands request. [50] minutes spent on this encounter with >50% of the time in counseling and coordination of care. Thank you for this very appropriate consult.
[2019-08-06] MEDS: Mirtazapine 15 MG TAB PO SCH (21:36)
[2019-08-07] MEDS: Sodium Chloride 0.9% 1,000 ML IV SCH ×2 (00:33→09:23)
[2019-08-07 03:49] LABS: Anion Gap 14 mmol/L (10-20); BUN (Urea Nitrogen) 18 mg/dL (9.8-20.1); Calc. Creatinine Clearance 86 mL/min (70-130); Calcium 8.4 mg/dL (7.8-10.44); Carbon Dioxide 24 mmol/L (23-31); Chloride 110 mmol/L (98-107); Estimated GFR-MDRD Greater than 90; Potassium 3.6 mmol/L (3.5-5.1); Sodium 144 mmol/L (136-145)
[2019-08-07 03:53] LABS: Glucose 57 mg/dL (80-115)
[2019-08-07] MEDS ORDERED: Dextrose 50% Abboject 50 ML SYRINGE IVP PRN (04:08)
[2019-08-07] MEDS ORDERED: Dextrose 5% in Water 1,000 ML IV PRN (04:08)
[2019-08-07] MEDS: Budesonide 0.5 MG/2 ML NEB NEB SCH ×2 (07:14→18:53)
[2019-08-07] MEDS ORDERED: Morphine 2 MG/ML SYRINGE SLOW IVP PRN (08:22)
[2019-08-07] MEDS ORDERED: Enoxaparin Sodium 30 MG/0.3 ML SYRINGE SC SCH (09:00)
[2019-08-07] MEDS: Bacteriostatic Water 30 ML VIAL FS PRN (09:23)
[2019-08-07] MEDS: Sodium Chloride 0.9% (PF) 10 ML VIAL FS PRN (09:23)
[2019-08-07] MEDS: Pantoprazole 40 MG VIAL IVP SCH (09:23)
[2019-08-07] MEDS: methylPREDNISolone Sod Succ 40 MG VIAL IVP SCH (09:23)
[2019-08-07] MEDS: Losartan 25 MG TAB PER TUBE SCH ×2 (09:25→12:47)
[2019-08-07] MEDS: hydrALAZINE 25 MG TAB PER TUBE SCH ×3 (09:25→21:08)
--- NOTE | 2019-08-07 09:34 | PRG ---
DATE OF SERVICE: 08/07/2019 SUBJECTIVE: The patient continues to struggle with the BiPAP. She really does not like being on it. OBJECTIVE: VITAL SIGNS: Temperature 97.8, pulse 91, blood pressure 156/59, O2 saturation 100%. She is on a Precedex drip. HEENT: Unremarkable. NECK: No adenopathy or JVD. LUNGS: Diminished breath sounds bilaterally. CARDIAC: S1 and S2. Regular. ABDOMEN: Soft. EXTREMITIES: Edematous. LABORATORY DATA: Sodium 144, potassium 3.6, chloride 110, CO2 of 24, BUN 18, creatinine 0.5, glucose 57. ASSESSMENT: 1. End-stage chronic obstructive pulmonary disease. 2. Acute on chronic hypoxic and hypercapnic respiratory failure. PLAN: The family has requested a hospice evaluation. Palliative Care was helpful in facilitating a DNAR order yesterday. I have increased the patient's morphine dose. I think the most important thing at this time is comfort. I think ultimately continuing the BiPAP is just prolonging the livelihood for the patient and I have no issue with converting to a nasal cannula. Job ID: [id number]
[2019-08-07] MEDS: Enoxaparin Sodium 40 MG/0.4 ML SYRINGE SC SCH (09:43)
[2019-08-07] MEDS: hydrALAZINE 20 MG/ML VIAL SLOW IVP PRN (11:21)
[2019-08-07] MEDS ORDERED: DC Electrolyte Protocol FS ONE (15:34)
--- NOTE | 2019-08-07 15:39 | PDOC.HOSPP ---
- Subjective Encounter Date: 08/07/19 Encounter Time: 12:00 Subjective: Patient seen and examined for resp failure. On NIPPV. was on O2 NC earlier. Feels gen weak. No overnight events - Objective Vital Signs & Weight: Vital Signs (12 hours) Temp Pulse Resp BP Pulse Ox 08/07/19 15:03 108 H 14 100 08/07/19 14:57 109 H 174/95 H 08/07/19 11:21 104 H 204/105 H 08/07/19 10:35 93 22 H 100 08/07/19 09:25 85 08/07/19 07:16 85 08/07/19 07:14 85 24 H 100 08/07/19 04:00 97.8 F Weight Admit Weight 102 lb 1.12 oz Weight 111 lb 15.917 oz Most Recent Monitor Data Heart Rate from ECG 120 NIBP 186/103 NIBP BP-Mean 130 Respiration from ECG 18 SpO2 100 I&O: 08/06/19 08/07/19 08/08/19 06:59 06:59 06:59 Intake Total 2768.1 1811.5 Output Total 1135 1272 Balance 1633.1 539.5 Result Diagrams: 08/06/19 03:20 08/07/19 03:19 Additional Labs: Accuchecks 08/07/19 06:21 POC Glucose 97 EKG Reviewed by me: Yes ([employer]) Hospitalist ROS - Review of Systems Respiratory: reports: shortness of breath, SOB with excertion, wheezing. denies : cough, dry, hemoptysis, pleuritic pain, sputum, other Cardiovascular: denies: chest pain, palpitations, orthopnea, paroxysmal noc. dyspnea, edema, light headedness, other Gastrointestinal: denies: nausea, vomiting, abdominal pain, diarrhea, constipation, melena, hematochezia, other - Medication Medications: Active Medications Generic Name Dose Route Start Last Admin Trade Name Freq PRN Reason Stop Dose Admin Acetaminophen 650 mg 07/30/19 10:08 08/03/19 14:19 Tylenol PO 650 mg Q4H PRN Administration Headache/Fever/Mild Pain (1-3) Albuterol/Ipratropium 3 ml 07/30/19 18:30 08/07/19 15:03 Duoneb NEB 3 ml [id number] FAMILIA Administration Budesonide 0.5 mg 08/02/19 18:30 08/07/19 07:14 Pulmicort Neb Solution NEB 0.5 mg BID-RT FAMILIA Administration Dextrose/Water 25 gm 08/07/19 04:08 08/07/19 04:28 Dextrose 50% IVP 25 gm PRN PRN Administration HYPOGLYCEMIA PROTOCOL Enoxaparin Sodium 40 mg 08/07/19 09:00 08/07/19 09:43 Lovenox SC 40 mg 0900 FAMILIA Administration Hydralazine HCl 25 mg 08/01/19 21:00 08/07/19 14:57 Apresoline PER TUBE 25 mg TID FAMILIA Administration Hydralazine HCl 10 mg 08/06/19 15:03 08/07/19 11:21 Apresoline SLOW IVP 10 mg Q4H PRN Administration SBP Greater Than 180 Sodium Chloride 1,000 mls @ 50 mls/hr 07/30/19 10:15 08/07/19 09:23 Normal Saline 0.9% IV 1,000 mls .Q20H FAMILIA Administration Dexmedetomidine HCl 200 mcg/ 50 mls @ 0 mls/hr 08/02/19 08:15 08/07/19 09:23 Sodium Chloride IVPB 50 mls INF FAMILIA Administration Protocol Titrate Potassium Chloride 40 meq/ 100 mls @ 50 mls/hr 08/05/19 10:06 08/06/19 05:27 Device IVPB 100 mls ASDIR PRN Administration FOR SERUM K+ 2.5 - 3.5 Losartan Potassium 50 mg 08/04/19 09:00 08/07/19 12:47 Cozaar PER TUBE 50 mg DAILY FAMILIA Administration Methylprednisolone Sodium Succinate 40 mg 08/06/19 09:00 08/07/19 09:23 Solu-Medrol IVP 40 mg DAILY FAMILIA Administration Mirtazapine 15 mg 07/30/19 21:00 08/06/19 21:36 Remeron PO Not Given QPM FAMILIA Morphine Sulfate 4 mg 08/07/19 08:22 08/07/19 11:58 Morphine SLOW IVP 08/29/19 13:02 4 mg Q1H PRN Administration BREAKTHROUGH PAIN/Agitation Pantoprazole Sodium 40 mg 08/01/19 09:00 08/07/19 09:23 Protonix IVP 40 mg DAILY FAMILIA Administration Potassium Chloride 40 meq 08/05/19 10:06 08/05/19 18:16 K-Dur PO 40 meq ASDIR PRN Administration FOR SERUM K+ 2.5 - 3.5 Sertraline HCl 50 mg 08/02/19 09:00 08/07/19 09:25 Zoloft PER TUBE Not Given DAILY FAMILIA Sodium Chloride 10 ml 07/31/19 09:12 08/07/19 09:23 Normal Saline Pf FS 10 ml PRN PRN Administration RECONSTITUTION Sterile Water 1 ml 07/30/19 10:19 08/07/19 09:23 Bacteriostatic Water FS 1 ml PRN PRN Administration RECONSTITUTION - Exam General Appearance: ill appearing Heart: no gallops, no rubs Respiratory: rhonchi, tachypneic, wheezes Gastrointestinal: soft, non-tender, no guarding, no rigidity Extremities: no cyanosis, no clubbing Hosp A/P - Plan plan discussed w/ family (spouse), respiratory therapy, DVT proph w/lovenox, DVT proph w/SCDs Acute on chronic hypoxic-hypercapnic resp failure/COPD exacerbation s/p extubation 08/05 HTN Hyperkalemia Leucocytosis due to #1 Hyponatremia PLAN: Cont IV Solumedrol with NIPPV/Nebs Await home hospice eval Palliative care input appreciated Cont other meds DC electrolyte protocol
[2019-08-07] MEDS: Prevnar 13-Val Conj/PF 0.5 ML SYRINGE IM ONE ×2 (19:59→22:27)
[2019-08-07] MEDS: Mirtazapine 15 MG TAB PO SCH (21:12)
[2019-08-08] MEDS: Sodium Chloride 0.9% 1,000 ML IV SCH (05:17)
[2019-08-08] MEDS ORDERED: D5 0.9% NS w/ 20 mEq KCl 1,000 ML IV SCH ×2 (07:15→14:32)
[2019-08-08] MEDS: Budesonide 0.5 MG/2 ML NEB NEB SCH ×2 (07:29→18:34)
[2019-08-08] MEDS: hydrALAZINE 25 MG TAB PER TUBE SCH ×3 (08:22→21:13)
[2019-08-08] MEDS: Losartan 25 MG TAB PER TUBE SCH (08:23)
--- NOTE | 2019-08-08 08:23 | PRG ---
DATE OF SERVICE: 08/08/2019 SUBJECTIVE: Ms. Sousa spent most of the day and night off BiPAP. She did use it for 1 hour this morning. She is in better spirits. OBJECTIVE: VITAL SIGNS: Temperature is 98.1, pulse 107, blood pressure 157/95. HEENT: Unremarkable. NECK: No JVD. Her voice is hoarse. LUNGS: Fairly clear, but distant. CARDIAC: S1 and S2, regular. ABDOMEN: Soft. EXTREMITIES: No edema. ASSESSMENT: 1. Chronic obstructive pulmonary disease with exacerbation. 2. Acute on chronic respiratory failure. 3. Severe debilitation. PLAN: She will be transferred to [facility]. Hopefully, hospice planning can take place early this week. Job ID: [id number]
[2019-08-08] MEDS: Pantoprazole 40 MG VIAL IVP SCH (08:25)
[2019-08-08] MEDS: methylPREDNISolone Sod Succ 40 MG VIAL IVP SCH (08:26)
[2019-08-08] MEDS: Enoxaparin Sodium 40 MG/0.4 ML SYRINGE SC SCH (08:27)
[2019-08-08] MEDS: hydrALAZINE 20 MG/ML VIAL SLOW IVP PRN (11:05)
--- NOTE | 2019-08-08 17:30 | PDOC.HOSPP ---
- Subjective Encounter Date: 08/08/19 Encounter Time: 14:00 Subjective: Patient seen and examined for resp failure. Off NIPPV. No new complaints. No overnight events - Objective Vital Signs & Weight: Vital Signs (12 hours) Temp Pulse Resp BP Pulse Ox 08/08/19 15:36 98.4 F 08/08/19 14:48 130 H 31 H 140/74 97 08/08/19 11:13 98.3 F 08/08/19 11:05 113 H 196/104 H 08/08/19 10:25 129 H 26 H 100 08/08/19 09:00 98.1 F 96 08/08/19 08:22 113 H 180/111 H 08/08/19 08:00 97 08/08/19 07:29 113 H 24 H 97 08/08/19 07:00 98.1 F Weight Admit Weight 102 lb 1.12 oz Weight 110 lb 10.753 oz Most Recent Monitor Data Heart Rate from ECG 134 NIBP 140/74 NIBP BP-Mean 96 Respiration from ECG 29 SpO2 97 I&O: 08/07/19 08/08/19 08/09/19 06:59 06:59 06:59 Intake Total 1811.5 1621.4 Output Total 1272 1305 75 Balance 539.5 316.4 -75 Result Diagrams: 08/06/19 03:20 08/07/19 03:19 Additional Labs: Accuchecks 08/08/19 08/08/19 08/08/19 12:17 06:18 01:30 POC Glucose 95 64 L 70 EKG Reviewed by me: Yes (Tele ) Hospitalist ROS - Review of Systems Cardiovascular: denies: chest pain, palpitations, orthopnea, paroxysmal noc. dyspnea, edema, light headedness, other Gastrointestinal: denies: nausea, vomiting, abdominal pain, diarrhea, constipation, melena, hematochezia, other - Medication Medications: Active Medications Generic Name Dose Route Start Last Admin Trade Name Freq PRN Reason Stop Dose Admin Acetaminophen 650 mg 07/30/19 10:08 08/03/19 14:19 Tylenol PO 650 mg Q4H PRN Administration Headache/Fever/Mild Pain (1-3) Albuterol/Ipratropium 3 ml 07/30/19 18:30 08/08/19 14:48 Duoneb NEB 3 ml [id number] FAMILIA Administration Budesonide 0.5 mg 08/02/19 18:30 08/08/19 07:29 Pulmicort Neb Solution NEB 0.5 mg BID-RT FAMILIA Administration Dextrose/Water 25 gm 08/07/19 04:08 08/07/19 04:28 Dextrose 50% IVP 25 gm PRN PRN Administration HYPOGLYCEMIA PROTOCOL Enoxaparin Sodium 40 mg 08/07/19 09:00 08/08/19 08:27 Lovenox SC 40 mg 0900 FAMILIA Administration Hydralazine HCl 25 mg 08/01/19 21:00 08/08/19 14:48 Apresoline PER TUBE 25 mg TID FAMILIA Administration Hydralazine HCl 10 mg 08/06/19 15:03 08/08/19 11:05 Apresoline SLOW IVP 10 mg Q4H PRN Administration SBP Greater Than 180 Dexmedetomidine HCl 200 mcg/ 50 mls @ 0 mls/hr 08/02/19 08:15 08/07/19 18:19 Sodium Chloride IVPB 50 mls INF FAMILIA Administration Protocol Titrate Potassium Chloride/Dextrose/Sod Cl 1,000 mls @ 30 mls/hr 08/08/19 14:32 08/07 14:48 D5 0.9% Ns W/ 20 Meq Kcl IV 1,000 mls .Q24H FAMILIA Administration Losartan Potassium 50 mg 08/04/19 09:00 08/08/19 08:23 Cozaar PER TUBE 50 mg DAILY FAMILIA Administration Methylprednisolone Sodium Succinate 40 mg 08/06/19 09:00 08/08/19 08:26 Solu-Medrol IVP 40 mg DAILY FAMILIA Administration Mirtazapine 15 mg 07/30/19 21:00 08/07/19 21:12 Remeron PO 15 mg QPM FAMILIA Administration Pantoprazole Sodium 40 mg 08/01/19 09:00 08/08/19 08:25 Protonix IVP 40 mg DAILY FAMILIA Administration Sertraline HCl 50 mg 08/02/19 09:00 08/08/19 08:23 Zoloft PER TUBE 50 mg DAILY FAMILIA Administration Sodium Chloride 10 ml 07/31/19 09:12 08/07/19 09:23 Normal Saline Pf FS 10 ml PRN PRN Administration RECONSTITUTION Sterile Water 1 ml 07/30/19 10:19 05/09/20 09:23 Bacteriostatic Water FS 1 ml PRN PRN Administration RECONSTITUTION - Exam General Appearance: NAD Heart: RRR, no gallops Respiratory: rhonchi, tachypneic Gastrointestinal: non-tender, non-distended Extremities: no cyanosis, no clubbing Hosp A/P - Plan DVT proph w/lovenox, DVT proph w/SCDs Acute on chronic hypoxic-hypercapnic resp failure/COPD exacerbation -extubated HTN Hyperkalemia Leucocytosis due to #1 Hyponatremia PLAN: Cont IV Solumedrol Cont Nebs Cont PRN NIPPV Await hospice eval Cont other meds
[2019-08-08] MEDS: Mirtazapine 15 MG TAB PO SCH (21:13)
[2019-08-09] MEDS: Budesonide 0.5 MG/2 ML NEB NEB SCH (07:40)
[2019-08-09] MEDS: Losartan 25 MG TAB PER TUBE SCH (09:35)
[2019-08-09] MEDS: hydrALAZINE 25 MG TAB PER TUBE SCH (09:36)
[2019-08-09] MEDS: Enoxaparin Sodium 40 MG/0.4 ML SYRINGE SC SCH (09:48)
[2019-08-09] MEDS: Pantoprazole 40 MG VIAL IVP SCH (09:49)
[2019-08-09] MEDS: methylPREDNISolone Sod Succ 40 MG VIAL IVP SCH (09:49)
[2019-08-09 09:50] VITALS: BP 184/120
--- NOTE | 2019-08-09 11:39 | PDOC.HOSPP ---
- Subjective Encounter Date: 08/09/19 Encounter Time: 07:00 Subjective: is awake, alert and oriented well this am has some sob is trying to eat her breakfast is excited to go home today, she is aware of having hospice at home - Objective Vital Signs & Weight: Vital Signs (12 hours) Temp Pulse Resp BP Pulse Ox 08/09/19 11:15 97.8 F 08/09/19 10:36 103 H 25 H 99 08/09/19 09:36 109 H 184/120 H 08/09/19 08:00 99 08/09/19 07:41 99 08/09/19 07:38 99 25 H 99 08/09/19 07:20 97.9 F 08/09/19 03:51 99 08/09/19 03:33 97.8 F Weight Admit Weight 102 lb 1.12 oz Weight 110 lb Most Recent Monitor Data Heart Rate from ECG 109 NIBP 202/121 NIBP BP-Mean 148 Respiration from ECG 27 SpO2 100 I&O: 08/08/19 08/09/19 08/10/19 06:59 06:59 06:59 Intake Total 1621.4 1441 Output Total 1305 1115 Balance 316.4 326 Result Diagrams: 08/06/19 03:20 08/07/19 03:19 Additional Labs: Accuchecks 08/09/19 08/09/19 08/08/19 05:30 00:03 18:48 POC Glucose 84 97 126 H 08/08/19 12:17 POC Glucose 95 Hospitalist ROS - Medication Medications: Active Medications Generic Name Dose Route Start Last Admin Trade Name Freq PRN Reason Stop Dose Admin Acetaminophen 650 mg 07/30/19 10:08 08/03/19 14:19 Tylenol PO 650 mg Q4H PRN Administration Headache/Fever/Mild Pain (1-3) Albuterol/Ipratropium 3 ml 07/30/19 18:30 08/09/19 10:36 Duoneb NEB 3 ml [id number] FAMILIA Administration Budesonide 0.5 mg 08/02/19 18:30 08/09/19 07:40 Pulmicort Neb Solution NEB 0.5 mg BID-RT FAMILIA Administration Dextrose/Water 25 gm 08/07/19 04:08 08/07/19 04:28 Dextrose 50% IVP 25 gm PRN PRN Administration HYPOGLYCEMIA PROTOCOL Enoxaparin Sodium 40 mg 08/07/19 09:00 08/09/19 09:48 Lovenox SC 40 mg 0900 FAMILIA Administration Hydralazine HCl 25 mg 08/01/19 21:00 08/09/19 09:36 Apresoline PER TUBE 25 mg TID FAMILIA Administration Hydralazine HCl 10 mg 08/06/19 15:03 08/08/19 11:05 Apresoline SLOW IVP 10 mg Q4H PRN Administration SBP Greater Than 180 Dexmedetomidine HCl 200 mcg/ 50 mls @ 0 mls/hr 08/02/19 08:15 08/07/19 18:19 Sodium Chloride IVPB 50 mls INF FAMILIA Administration Protocol Titrate Potassium Chloride/Dextrose/Sod Cl 1,000 mls @ 30 mls/hr 08/08/19 14:32 08/07 14:48 D5 0.9% Ns W/ 20 Meq Kcl IV 1,000 mls .Q24H FAMILIA Administration Losartan Potassium 50 mg 08/04/19 09:00 08/09/19 09:35 Cozaar PER TUBE 50 mg DAILY FAMILIA Administration Methylprednisolone Sodium Succinate 40 mg 08/06/19 09:00 08/09/19 09:49 Solu-Medrol IVP 40 mg DAILY FAMILIA Administration Mirtazapine 15 mg 07/30/19 21:00 08/08/19 21:13 Remeron PO 15 mg QPM FAMILIA Administration Pantoprazole Sodium 40 mg 08/01/19 09:00 08/09/19 09:49 Protonix IVP 40 mg DAILY FAMILIA Administration Sertraline HCl 50 mg 08/02/19 09:00 08/09/19 09:36 Zoloft PER TUBE 50 mg DAILY FAMILIA Administration Sodium Chloride 10 ml 07/31/19 09:12 08/07/19 09:23 Normal Saline Pf FS 10 ml PRN PRN Administration RECONSTITUTION Sterile Water 1 ml 07/30/19 10:19 08/07/19 09:23 Bacteriostatic Water FS 1 ml PRN PRN Administration RECONSTITUTION - Exam General Appearance: awake alert Eye: anicteric sclera ENT: no oropharyngeal lesions, dry oral mucosa Neck: supple, no JVD Heart: RRR, no murmur Respiratory: no wheezes, no rales, rhonchi Gastrointestinal: soft, non-tender, non-distended, normal bowel sounds Extremities: no cyanosis, no edema Neurological: cranial nerve grossly intact, no focal deficits Psychiatric: A&O x 3 Hosp A/P (1) Acute respiratory failure with hypoxia and hypercapnia Code(s): J96.01 - ACUTE RESPIRATORY FAILURE WITH HYPOXIA; J96.02 - ACUTE RESPIRATORY FAILURE WITH HYPERCAPNIA Status: Acute (2) COPD exacerbation Code(s): J44.1 - CHRONIC OBSTRUCTIVE PULMONARY DISEASE W (ACUTE) EXACERBATION Status: Resolved (3) HTN (hypertension) Code(s): I10 - ESSENTIAL (PRIMARY) HYPERTENSION Status: Chronic Qualifiers: Hypertension type: essential hypertension Qualified Code(s): I10 - Essential (primary) hypertension (4) Anxiety and depression Code(s): F41.9 - ANXIETY DISORDER, UNSPECIFIED; F32.9 - MAJOR DEPRESSIVE DISORDER, SINGLE EPISODE, UNSPECIFIED Status: Chronic (5) Protein-calorie malnutrition, moderate Code(s): E44.0 - MODERATE PROTEIN-CALORIE MALNUTRITION Status: Chronic (6) Scoliosis Status: Chronic Qualifiers: Scoliosis type: unspecified scoliosis Spinal region: thoracic Qualified Code(s): M41.9 - Scoliosis, unspecified (7) Physical deconditioning Code(s): R53.81 - OTHER MALAISE Status: Acute - Plan is on nasal canula oxygen and is stable, looks better than when I admitted her continue steroids, pulmicort, duonebs, hydralazine, zoloft, remeron hemostable she is going under home hospice with [facility] has home oxygen, ?bipap per pulm adv will need PT to mobilize her due to deconditioning, which she wont get with Hospice, family has to work with her.
--- NOTE | 2019-08-09 14:52 | PDOC.PALPN ---
Palliative Progress Note - Subjective Awake, alert, O2 via NC. She and her have elected to transition home with hospice. - Objective Vital Signs: Vital Signs - Most Recent Temp Pulse Resp BP Pulse Ox 97.8 F 117 H 25 H 184/120 H 99 08/09/19 11:15 08/09/19 14:32 08/09/19 14:32 08/09/19 09:36 08/09/19 10:36 - Physical Exam Constitutional: emaciated, ill appearing HEENT: EOMI, moist MMs, sclera anicteric Respiratory: labored respirations Deviation from normal: Mildly labored with exertion Cardiovascular: RRR Gastrointestinal: soft, non-tender Genitourinary: machado catheter Musculoskeletal: diffuse muscle atrophy Neurology: moves all 4 limbs, no focal deficits Skin: cap refill <2 seconds, fragile Psychiatric: A&O x 3, normal mood Deviation from normal: Intermittant mild confusion during conversation - Plan Plan: Goal of care to transition home with hospice. Discussed home Bipap use, gaining strength, measures to mitigate falls at home and symptom management of shortness of breath. She and her live in a private home in [place], goal is to return to home setting and spend time with her and animals. [30] minutes spent on this encounter with >50% of the time in counseling and coordination of care. - ROS Constitutional: alert, weakness ENT: alteration in dentition, dry mouth Respiratory: shortness of breath with extertion Cardiology: orthopnea Gastrointestinal: other (Denies nausea, vomiting) Neurological: other (Denies headache, tremors) Psychological: anxiety (Intermittant anxiety with shortness of breath)
[2019-08-09 15:03] VITALS: TEMP 98.2
--- NOTE | 2019-08-09 16:24 | DIS ---
DATE OF ADMISSION: 07/30/2019 DATE OF DISCHARGE: 08/09/2019 DISCHARGE DISPOSITION: To home with hospice. PRIMARY DISCHARGE DIAGNOSES: 1. End-stage chronic obstructive pulmonary disease. 2. Acute on chronic respiratory failure with hypoxia and hypercarbia. 3. Deconditioning. 4. Hypertension. 5. Anxiety. 6. Depression. 7. Moderate protein-calorie malnutrition. 8. History of scoliosis. PROCEDURES DONE DURING HOSPITALIZATION: Chest x-ray done on the day of admission showed no acute infiltrate. Blood cultures x1, no growth. COVID-19 PCR done on 07/30/2019 was negative. Discharge BUN and creatinine are 18 and 0.5. DISCHARGE MEDICATIONS: 1. Prednisone 5 mg p.o. daily. 2. Protonix 40 mg p.o. daily. 3. DuoNebs q.4 hourly. 4. Hydralazine 25 mg three times daily. 5. Ultram 50 mg q.6 hourly p.r.n. 6. Mirtazapine 15 mg p.o. q.p.m. 7. Losartan 50 mg daily. 8. Formoterol nebulizer twice daily. 9. Budesonide nebulizer twice daily. ALLERGIES: TO SHELLFISH, CODEINE, AND IODINE. INPATIENT CONSULT: Dr. Holly for Pulmonology. DISCHARGE PLAN: The patient to follow up with her hospice physician with [facility] in 2 to 3 days. BRIEF COURSE DURING HOSPITALIZATION: The patient initially got admitted on the 29 of July with complaints of shortness of breath. She was found to be in acute on chronic respiratory failure. The patient has known history of COPD, on home oxygen and steroids. The patient initially was tried on BiPAP and was not doing well. She finally had to be intubated and admitted to ICU. She has had consultation with Dr. Holly. She was on steroids, empiric antibiotics, and nebulizations. Initial COVID PCR obtained was negative. The patient has had slow weaning from ventilator. Post extubation, the patient was on BiPAP off and on. In view of end-stage COPD, the patient did not want to pursue resuscitation and wanted to go into hospice at home. She has chosen [facility]. She has been cleared by Dr. Holly for discharge. Please note, the patient has not ambulated so far and is adamant of going home today. Please see a [id number] documentation for the day of discharge on [employer]. Job ID: [id number]
--- NOTE | 2019-08-10 11:47 | PRG ---
DATE OF SERVICE: 08/09/2019 SUBJECTIVE: Ms. Sousa was tentatively scheduled to go home with hospice. She is surprisingly in no distress. I had seen her since last Friday and she was 100% better than she was on Friday. She is talking in complete sentences. Actually makes me wonder whether or not she needs hospice at this point, but she was agreeable to this. She clearly does not want to be intubated again. On exam, she had no wheezes. IMPRESSION: Advanced chronic obstructive pulmonary disease, stable for discharge with hospice. We will see her as needed in the future. Job ID: [id number]
--- NOTE | 2019-08-12 15:47 | EKG ---
Test Reason : DIFF BREATHING Blood Pressure : / mmHG Vent. Rate : 112 BPM Atrial Rate : 112 BPM P-R Int : 184 ms QRS Dur : 068 ms QT Int : 340 ms P-R-T Axes : 058 035 061 degrees QTc Int : 464 ms Sinus tachycardia Anteroseptal infarct , age undetermined Abnormal ECG Confirmed by GIOVANNI CHENG DO ([id number]), editor news KEVIN SIU ([id number]) on 08/12/2019 3:47:25 PM Referred By: Confirmed By:GIOVANNI CHENG DO
== END 2019-08-09 15:15 | disposition hospice, home (50) | DRG 207 ==
LOC: ERS 07:28 → CCU 12:04 → IMCU/EMU 08-08 08:50
PROVIDERS: ADMIT Internal Medicine; ATTEND Internal Medicine
PROC: 5A1955Z Respiratory Ventilation, Greater than 96 Consecutive Hours (ICD-10-PCS; principal; 2019-07-30)
PROC: 8E0ZXY6 Isolation (ICD-10-PCS; 2019-07-30)
PROC: 0BH17EZ Insertion of Endotracheal Airway into Trachea, Via Natural or Artificial Opening (ICD-10-PCS; 2019-07-30)
PROC: 5A09457 Assistance with Respiratory Ventilation, 24-96 Consecutive Hours, Continuous Positive Airway Pressure (ICD-10-PCS; 2019-08-06)
DX: J96.21 Acute and chronic respiratory failure with hypoxia (principal); J44.1 Chronic obstructive pulmonary disease with (acute) exacerbation; Z68.1 Body mass index [BMI] 19.9 or less, adult; C18.9 Malignant neoplasm of colon, unspecified; E87.1 Hypo-osmolality and hyponatremia; E44.0 Moderate protein-calorie malnutrition; Z20.828 Contact with and (suspected) exposure to other viral communicable diseases; J96.22 Acute and chronic respiratory failure with hypercapnia; R53.81 Other malaise; Z51.5 Encounter for palliative care; I10 Essential (primary) hypertension; F41.9 Anxiety disorder, unspecified; E87.5 Hyperkalemia; M41.84 Other forms of scoliosis, thoracic region; D64.9 Anemia, unspecified; F32.9 Major depressive disorder, single episode, unspecified; Z91.013 Allergy to seafood; Z88.5 Allergy status to narcotic agent; Z99.81 Dependence on supplemental oxygen; Z88.1 Allergy status to other antibiotic agents; Z87.891 Personal history of nicotine dependence
CPT/HCPCS: 36415; 36416; 71045; 80048; 80053; 82550; 82805; 83605; 83735; 84100; 84484; 85007; 85025; 85027; 86850; 86900; 86901; 87040; 87635; 90471; 90670; 93005; 94002; 94003; 94640; 94660; 94760; 96365; 96367; 96375; 99292; C9113; G0009; J0360; J0456; J0696; J1650; J1956; J2060; J2270; J2704; J2920; J3480; J7620; J7626; U0003

== ENCOUNTER 2020-04-27 11:42 | Outpatient (CLI) | payer MEDICARE | END 2020-04-27 11:43 | disposition home or self-care (01) | LOC: PET 11:42 | PROVIDERS: ATTEND Internal Medicine Hematology & Oncology | DX: C20 Malignant neoplasm of rectum (principal); K76.9 Liver disease, unspecified | CPT/HCPCS: 78815; A9552 ==

== ENCOUNTER 2020-07-13 11:01 | Outpatient (CLI) | payer MEDICARE | END 2020-07-13 11:02 | disposition home or self-care (01) | LOC: PET 11:01 | PROVIDERS: ATTEND Internal Medicine Hematology & Oncology | DX: C20 Malignant neoplasm of rectum (principal); C22.9 Malignant neoplasm of liver, not specified as primary or secondary; R91.1 Solitary pulmonary nodule | CPT/HCPCS: 78815; A9552 ==